=== PATIENT | female | born 1970 | race Caucasian/White ===

== ENCOUNTER 2016-08-28 15:52 | Observation (INO) | payer OTHER ==
[2016-08-28 15:56] VITALS: BMI 29.2
[2016-08-28] MEDS ORDERED: OXYCODONE/APAP 5/325MG COMBO TABLET PO ONE (17:50)
[2016-08-28] MEDS ORDERED: SODIUM CHLORIDE 1,000 ML IV STA ×2 (17:50→19:56)
[2016-08-28] MEDS ORDERED: OXYCODONE/APAP 5/325MG COMBO TABLET ONE (18:14)
--- NOTE | 2016-08-28 18:22 | PDOC ---
History of Present Illness - General Chief Complaint: Pain Stated Complaint: ABDOMINAL PAIN Time Seen by Provider: 08/28/16 17:01 History Source: Patient Exam Limitations: No Limitations - History of Present Illness Travel History: No Initial Comments: 08/28/16 17:19 46-year-old female presents to the ED for complaints of right lower quadrant right suprapubic pain that she describes sharp and intermittent worsened with movement. Patient denies fever, chills, urinary difficulty, irregular menses, diarrhea, constipation, headache, change in diet, abdominal distention, rash, or recent travel. She denies recent change in diet or recent sick contacts. Patient also denies history of ovarian cysts, fibroids, or GI disorders. Timing/Duration: reports: getting worse, intermittent Quality: reports: moderate, sharpness Abdominal Pain Onset Location: reports: suprapubic Pain Radiation: reports: RLQ Activities at Onset: reports: none Aggravating Factors: improves with: Movement Alleviating Factors: improves with: None Past History - Past Medical History Allergies/Adverse Reactions: Allergies Allergy/AdvReac Type Severity Reaction Status Date / Time No Known Allergies Allergy Verified 08/28/16 15:56 Home Medications: Ambulatory Orders Levothyroxine Sodium [Synthroid] 0 mg PO DAILY 08/28/16 Levothyroxine [Synthroid -] 50 mcg PO DAILY@0700 #0 tablet 08/30/16 Thyroid Disease: Yes - Surgical History Abdominal Surgery: Yes (gastric bypass) - Psycho/Social/Smoking Cessation Hx Suicidal Ideation: No Smoking History: Current every day smoker Information on smoking cessation initiated: No Hx Alcohol Use: Yes (occasional) Drug/Substance Use Hx: No Substance Use Type: None Patient Lives Alone: No Lives with/in: spouse/SO Review of Systems - Review of Systems Able to Perform ROS?: Yes Constitutional: No: Symptoms Reported HEENTM: No: Symptoms Reported Respiratory: No: Symptoms reported Cardiac (ROS): No: Symptoms Reported ABD/GI: Yes: Abdominal cramping : No: Symptoms Reported Musculoskeletal: No: Symptoms Reported Integumentary: No: Symptoms Reported 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: No: Symptoms reported *Physical Exam - Vital Signs Last Vital Signs Temp Pulse Resp BP Pulse Ox 97.6 F 79 19 155/97 100 08/28/16 15:54 08/28/16 15:54 08/28/16 15:54 08/28/16 15:54 08/28/16 15:54 - Physical Exam General Appearance: Yes: Nourished, Appropriately Dressed. No: Apparent Distress HEENT: positive: Pharynx Normal. negative: Pale Conjunctivae Neck: positive: Normal Thyroid, Supple Respiratory/Chest: positive: Lungs Clear, Normal Breath Sounds. negative: Respiratory Distress, Accessory Muscle Use Cardiovascular: positive: Regular Rhythm, Regular Rate. negative: Murmur Gastrointestinal/Abdominal: positive: Normal Bowel Sounds, Soft, Tenderness ( right suprapubic. negative McBURNEy, NEGATIVE PSOAS). negative: Distended, Mass Musculoskeletal: negative: CVA Tenderness Extremity: negative: Pedal Edema Integumentary: positive: Normal Color, Warm, Moist Neurologic: positive: Motor Strength 5/5 (ambulatory) ED Treatment Course - LABORATORY CBC & Chemistry Diagram: 08/28/16 18:00 08/28/16 18:00 - RADIOLOGY Radiology Studies Ordered: Category Date Time Status PELVIC / BLADDER US [US] Stat Ultrasound 08/28/16 17:50 Ordered TRANSVAGINAL ULTRASOUND US [US] Stat Ultrasound 08/28/16 17:50 Ordered - Medications Given in the ED: ED Medications Discontinued Medications Generic Name Dose Route Start Last Admin Trade Name Freq PRN Reason Stop Dose Admin Oxycodone/Acetaminophen 1 combo 08/28/16 17:50 08/28/16 18:19 Percocet 5/325 - PO 08/28/16 17:51 1 combo ONCE ONE Administration Medical Decision Making - Medical Decision Making 08/28/16 18:22 Patient here for evaluation of right lower quadrant pain and was sent over from urgent care clinic to rule out appendicitis. Patient exam had no clinical indication for appendicitis. Patient with right suprapubic pain with no vaginal discharge. Patient ordered for labs including lipase, urinalysis urine analgesics, and ultrasound 08/28/16 19:55 Patient states feeling better after receiving Percocet. Patient with elevated lactic acid. Will order another bag of IV fluids and second lactic acid. patient awaiting u/s. 08/28/16 20:08 Laboratory Tests 08/28/16 08/28/16 08/28/16 18:00 18:00 18:00 WBC 5.0 Hgb 10.4 L Hct 32.4 Plt Count 369 Neutrophils % 52.1 Random Glucose 110 H Lactic Acid Calcium 8.1 L AST 55 H ALT 39 Albumin 3.2 L Lipase Urine Nitrite Negative Ur Leukocyte Esterase Negative 08/28/16 08/28/16 18:00 18:00 WBC Hgb Hct Plt Count Neutrophils % Random Glucose Lactic Acid 2.9 H* Calcium AST ALT Albumin Lipase 163 Urine Nitrite Ur Leukocyte Esterase *DC/Admit/Observation/Transfer Diagnosis at time of Disposition: Right lower quadrant abdominal pain - Discharge Dispostion Disposition: HOME Condition at time of disposition: Improved - Prescriptions
[2016-08-28 18:31] LABS: BASOPHIL 1.2 % (0-2.0); EOSINOPHIL 1.8 % (0-4.5); MEAN CELL VOLUME 90.6 fl (80-96); MEAN PLT VOLUME 7.1 fl (7.5-11.1); NEUTROPHILS 52.1 % (42.8-82.8); PLATELET COUNT 369 K/MM3 (134-434); RDW 21.5 % (11.6-15.6)
[2016-08-28 18:34] LABS: URINE APPEARANCE CLEAR; URINE BILIRUBIN NEGATIVE (NEGATIVE); URINE BLOOD NEGATIVE (NEGATIVE); URINE COLOR STRAW; URINE GLUCOSE (UA) NEGATIVE (NEGATIVE); URINE KETONE NEGATIVE (NEGATIVE); URINE LEUK ESTERASE NEGATIVE (NEGATIVE); URINE NITRITE NEGATIVE (NEGATIVE); URINE PROTEIN NEGATIVE (NEGATIVE); URINE UROBILINOGEN NEGATIVE E.U./dl (0.2-1.0)
--- NOTE | 2016-08-28 18:50 | PDOC ---
*Physical Exam - Vital Signs Last Vital Signs Temp Pulse Resp BP Pulse Ox 97.6 F 79 19 155/97 100 08/28/16 15:54 08/28/16 15:54 08/28/16 15:54 08/28/16 15:54 08/28/16 15:54 - Physical Exam General Appearance: Yes: Nourished, Appropriately Dressed Neck: positive: Trachea midline Respiratory/Chest: positive: Lungs Clear, Normal Breath Sounds Cardiovascular: positive: Regular Rhythm, Regular Rate, S1, S2 Gastrointestinal/Abdominal: positive: Normal Bowel Sounds, Tender (rlq ttp, ), Other (RLQ ttp, no rebound no guarding) Musculoskeletal: positive: Normal Inspection Integumentary: positive: Normal Color, Dry, Warm ED Treatment Course - LABORATORY CBC & Chemistry Diagram: 08/28/16 18:00 08/28/16 18:00 - ADDITIONAL ORDERS Additional order review: Laboratory Results 08/28/16 18:00 Urine Color Straw Urine Appearance Clear Urine pH 5.0 Urine Protein Negative Urine Glucose (UA) Negative Urine Ketones Negative Urine Blood Negative Urine Nitrite Negative Urine Bilirubin Negative Urine Urobilinogen Negative Ur Leukocyte Esterase Negative 08/28/16 18:00 RBC 3.58 L MCV 90.6 MCHC 32.0 RDW 21.5 H MPV 7.1 L Neutrophils % 52.1 Lymphocytes % 36.9 Monocytes % 8.0 Eosinophils % 1.8 Basophils % 1.2 - Medications Given in the ED: ED Medications Discontinued Medications Generic Name Dose Route Start Last Admin Trade Name Garrick PRN Reason Stop Dose Admin Oxycodone/Acetaminophen 1 combo 08/28/16 17:50 08/28/16 18:19 Percocet 5/325 - PO 08/28/16 17:51 1 combo ONCE ONE Administration
[2016-08-28 18:59] LABS: ALBUMIN 3.2 g/dl (3.4-5.0); ALK PHOS 87 U/L (45-117); ANION GAP 12 (8-16); BILIRUBIN,TOTAL 0.6 mg/dL (0.2-1.0); CALCIUM 8.1 mg/dL (8.5-10.1); CO2 25 mmol/L (21-32); CREATININE 0.7 mg/dL (0.55-1.02); GLUCOSE,RANDOM 110 mg/dL (74-106); SGOT/AST 55 U/L (15-37); SGPT/ALT 39 U/L (12-78); TOT PROT 6.9 g/dl (6.4-8.2)
[2016-08-28 19:43] LABS: ANISOCYTOSIS 2+; PLATELET ESTIMATE ADEQUATE (NORMAL); POLYCHROMASIA 1+
--- NOTE | 2016-08-28 20:52 | PDOC ---
*Physical Exam - Vital Signs Last Vital Signs Temp Pulse Resp BP Pulse Ox 97.6 F 79 19 155/97 100 08/28/16 15:54 08/28/16 15:54 08/28/16 15:54 08/28/16 15:54 08/28/16 15:54 - Physical Exam Comments: 08/28/16 20:52 Sign-out received from outgoing ER provider Go. Pt interviewed and examined. Ancillary studies reviewed. Awaiting TV and pelvic US for r/o torsion, appendicitis. 08/29/16 01:33 Ultrasound results negative for torsion. Appendix not visualized. -Abdomen and pelvis CT with IV contrast CT results: Lack of oral contrast is limiting this examination. The appendix is not grossly identified. No secondary signs of acute appendicitis are identified. A few scattered diverticula in the colon without evidence of acute diverticulitis. Lack of opacification/nondistention of the colon is limiting its evaluation. In particular evaluation of the cecum and proximal ascending colon where wall thickening cannot be excluded. Read by: Raji Osman MD Discussed case with attending MD Becerra, will treat empirically for colitis and admit for observation, patient requires repeat labs and serial abdominal exams. ED Treatment Course - LABORATORY CBC & Chemistry Diagram: 08/28/16 18:00 08/28/16 18:00 - ADDITIONAL ORDERS Additional order review: Laboratory Results 08/28/16 08/28/16 08/28/16 18:00 18:00 18:00 Sodium 143 Potassium 3.8 Chloride 106 Carbon Dioxide 25 Anion Gap 12 BUN 13 Creatinine 0.7 Creat Clearance w eGFR > 60 Random Glucose 110 H Lactic Acid 2.9 H* Calcium 8.1 L Total Bilirubin 0.6 AST 55 H ALT 39 Alkaline Phosphatase 87 Total Protein 6.9 Albumin 3.2 L Lipase 163 Urine Color Urine Appearance Urine pH Urine Protein Urine Glucose (UA) Urine Ketones Urine Blood Urine Nitrite Urine Bilirubin Urine Urobilinogen Ur Leukocyte Esterase 08/28/16 18:00 Sodium Potassium Chloride Carbon Dioxide Anion Gap BUN Creatinine Creat Clearance w eGFR Random Glucose Lactic Acid Calcium Total Bilirubin AST ALT Alkaline Phosphatase Total Protein Albumin Lipase Urine Color Straw Urine Appearance Clear Urine pH 5.0 Urine Protein Negative Urine Glucose (UA) Negative Urine Ketones Negative Urine Blood Negative Urine Nitrite Negative Urine Bilirubin Negative Urine Urobilinogen Negative Ur Leukocyte Esterase Negative 08/28/16 18:00 RBC 3.58 L MCV 90.6 MCHC 32.0 RDW 21.5 H MPV 7.1 L Neutrophils % 52.1 Lymphocytes % 36.9 Monocytes % 8.0 Eosinophils % 1.8 Basophils % 1.2 - RADIOLOGY Radiology Studies Ordered: Category Date Time Status ABDOMEN & PELVIS CT W/O CONTR [CT] Stat CT Scan 08/28/16 20:42 Ordered - Medications Given in the ED: ED Medications Discontinued Medications Generic Name Dose Route Start Last Admin Trade Name Freq PRN Reason Stop Dose Admin Sodium Chloride 1,000 mls @ 1,000 mls/hr 08/28/16 17:50 08/28/16 18:19 Normal Saline - IV 08/28/16 18:49 1,000 mls/hr ASDIR STA Administration Oxycodone/Acetaminophen 1 combo 08/28/16 17:50 08/28/16 18:19 Percocet 5/325 - PO 08/28/16 17:51 1 combo ONCE ONE Administration *DC/Admit/Observation/Transfer Diagnosis at time of Disposition: Right lower quadrant abdominal pain - Discharge Dispostion Admit: Yes
[2016-08-29] MEDS ORDERED: PIPERACILLIN/TAZOB 3.375 GM/50 ML PRE-DOCKED IV ONE (01:29)
[2016-08-29] MEDS ORDERED: PIPERACILLIN/TAZOB 3.375 GM 50 ML IVPB ONE (01:57)
[2016-08-29] MEDS ORDERED: OXYCODONE/APAP 5/325MG COMBO TABLET PO PRN (02:49)
[2016-08-29] MEDS ORDERED: oxyCODONE HCL 5 MG TABLET PO PRN (02:55)
--- NOTE | 2016-08-29 02:57 | HP ---
CHIEF COMPLAINT:Abdominal pain PCP:Doctor on [facility] does not know name HISTORY OF PRESENT ILLNESS: 46F with history of hypothyroidism presents to the ED from urgent care with a 2 day history of abdominal pain. She went to urgent care and they were concerned for appendicitis so sent to ED. She states pain is dull and achy and was progressive in onset. She denies relation to food intake. pain worsened by movement of RLQ abdominal muscles. Pain has not radiated nor travelled. She denies nausea vomiting fevers chills chest pain shortness of breath diarrhea or constipation. Denies vaginal bleeding or vaginal discharge. Her PO intake has been unchanged. Patient was noted to have a lactic acid of 2.9 in the ED which came down to 2.3 after fluids. She had a CT scan which did not visualize the appendix but did not show any evidence of acute appendicitis. No oral contrast given and colitis could not be entirely ruled out. Asked to admit patient for serial abdominal exams and observation. Patient just got over her menstrual period 2 days ago. as her menstrual period was resolving the pain was starting. ER course was notable for: (1)Labs CT scan (2)ABx Ultrasound (3)IVF Recent Travel:Denies PAST MEDICAL HISTORY:Hypothyroidism PAST SURGICAL HISTORY:Gastric bypass and 3 C sections Social History: Smoking:Current smoker Alcohol:Social Drugs: Denies Family History: Allergies No Known Allergies Allergy (Verified 08/28/16 15:56) HOME MEDICATIONS: Home Medications Medication Instructions Recorded Levothyroxine Sodium [Synthroid] 0 mg PO DAILY 08/28/16 REVIEW OF SYSTEMS CONSTITUTIONAL: Absent: fever, chills, diaphoresis, generalized weakness, malaise, loss of appetite, weight change HEENT: Absent: rhinorrhea, nasal congestion, throat pain, throat swelling, difficulty swallowing, mouth swelling, ear pain, eye pain, visual changes CARDIOVASCULAR: Absent: chest pain, syncope, palpitations, irregular heart rate, lightheadedness , peripheral edema RESPIRATORY: Absent: cough, shortness of breath, dyspnea with exertion, orthopnea, wheezing, stridor, hemoptysis GASTROINTESTINAL: Absent: abdominal distension, nausea, vomiting, diarrhea, constipation, melena , hematochezia Present: abdominal pain Absent: dysuria, frequency, urgency, hesitancy, hematuria, flank pain, genital pain MUSCULOSKELETAL: Absent: myalgia, arthralgia, joint swelling, back pain, neck pain SKIN: Absent: rash, itching, pallor HEMATOLOGIC/IMMUNOLOGIC: Absent: easy bleeding, easy bruising, lymphadenopathy, frequent infections ENDOCRINE: Absent: unexplained weight gain, unexplained weight loss, heat intolerance, cold intolerance NEUROLOGIC: Absent: headache, focal weakness or paresthesias, dizziness, unsteady gait, seizure, mental status changes, bladder or bowel incontinence PSYCHIATRIC: Absent: anxiety, depression, suicidal or homicidal ideation, hallucinations. PHYSICAL EXAMINATION Vital Signs - 24 hr 08/28/16 15:54 Temperature 97.6 F Pulse Rate 79 Respiratory 19 Rate Blood Pressure 155/97 O2 Sat by Pulse 100 Oximetry (%) GENERAL: Awake, alert, and fully oriented, in no acute distress. HEAD: Normal with no signs of trauma. EYES: Pupils equal, round and reactive to light, extraocular movements intact, sclera anicteric EARS, NOSE, THROAT:Moist mucous membranes. NECK: Normal range of motion, supple LUNGS: Breath sounds equal, clear to auscultation bilaterally. No wheezes, and no crackles. No accessory muscle use. HEART: Regular rate and rhythm, normal S1 and S2 without murmur, rub or gallop. ABDOMEN: Soft, mildly tender to palpation over the RLQ not distended, normoactive bowel sounds, no guarding, no rebound, no masses. No hepatomegaly or splenomegaly. MUSCULOSKELETAL: Normal range of motion at all joints. No bony deformities or tenderness. No CVA tenderness. UPPER EXTREMITIES: warm, well-perfused. No peripheral edema. LOWER EXTREMITIES: warm, well-perfused. No peripheral edema. NEUROLOGICAL: Cranial nerves II-XII grossly intact. Normal speech. Laboratory Results - last 24 hr 08/28/16 08/28/16 08/28/16 18:00 18:00 18:00 WBC 5.0 RBC 3.58 L Hgb 10.4 L Hct 32.4 MCV 90.6 MCH 29.0 MCHC 32.0 RDW 21.5 H Plt Count 369 MPV 7.1 L Neutrophils % 52.1 Lymphocytes % 36.9 Monocytes % 8.0 Eosinophils % 1.8 Basophils % 1.2 Platelet Estimate Adequate Polychromasia 1+ Anisocytosis 2+ Macrocytosis 1+ Morphology Comment Slide scanned Sodium 143 Potassium 3.8 Chloride 106 Carbon Dioxide 25 Anion Gap 12 BUN 13 Creatinine 0.7 Creat Clearance w eGFR > 60 Random Glucose 110 H Lactic Acid Calcium 8.1 L Total Bilirubin 0.6 AST 55 H ALT 39 Alkaline Phosphatase 87 C-Reactive Protein Total Protein 6.9 Albumin 3.2 L Lipase Serum , Qual Urine Color Straw Urine Appearance Clear Urine pH 5.0 Ur Specific [place] 1.015 Urine Protein Negative Urine Glucose (UA) Negative Urine Ketones Negative Urine Blood Negative Urine Nitrite Negative Urine Bilirubin Negative Urine Urobilinogen Negative Ur Leukocyte Esterase Negative 08/28/16 08/28/16 08/28/16 18:00 18:00 18:00 WBC RBC Hgb Hct MCV MCH MCHC RDW Plt Count MPV Neutrophils % Lymphocytes % Monocytes % Eosinophils % Basophils % Platelet Estimate Polychromasia Anisocytosis Macrocytosis Morphology Comment Sodium Potassium Chloride Carbon Dioxide Anion Gap BUN Creatinine Creat Clearance w eGFR Random Glucose Lactic Acid 2.9 H* Calcium Total Bilirubin AST ALT Alkaline Phosphatase C-Reactive Protein Total Protein Albumin Lipase 163 Serum , Qual Negative Urine Color Urine Appearance Urine pH Ur Specific [place] Urine Protein Urine Glucose (UA) Urine Ketones Urine Blood Urine Nitrite Urine Bilirubin Urine Urobilinogen Ur Leukocyte Esterase 08/29/16 08/29/16 00:05 00:05 WBC RBC Hgb Hct MCV MCH MCHC RDW Plt Count MPV Neutrophils % Lymphocytes % Monocytes % Eosinophils % Basophils % Platelet Estimate Polychromasia Anisocytosis Macrocytosis Morphology Comment Sodium Potassium Chloride Carbon Dioxide Anion Gap BUN Creatinine Creat Clearance w eGFR Random Glucose Lactic Acid 2.3 H* Calcium Total Bilirubin AST ALT Alkaline Phosphatase C-Reactive Protein < 0.3 Total Protein Albumin Lipase Serum , Qual Urine Color Urine Appearance Urine pH Ur Specific [place] Urine Protein Urine Glucose (UA) Urine Ketones Urine Blood Urine Nitrite Urine Bilirubin Urine Urobilinogen Ur Leukocyte Esterase Ultrasound results negative for torsion. Appendix not visualized. -Abdomen and pelvis CT with IV contrast CT results: Lack of oral contrast is limiting this examination. The appendix is not grossly identified. No secondary signs of acute appendicitis are identified. A few scattered diverticula in the colon without evidence of acute diverticulitis. Lack of opacification/nondistention of the colon is limiting its evaluation. In particular evaluation of the cecum and proximal ascending colon where wall thickening cannot be excluded. Read by: Raji Osman MD ASSESSMENT/PLAN: 46F with 2 day history of abdominal placed on observation. Abdominal pain:highly unlikely there is an acute pathology given current CT scan results. Although colon and appendix not completely visualized history of presenting illness and secondary signs on imaging go against these diagnoses. possible patient is having symptomatic fibroids. place on observation NPO IVF Repeat CT scan with oral contrast to assess bowel for colitis No Need for antibiotics at this time no elevated WBC count no fevers or chills nor signs or symptoms of SIRS or systemic infection. no need for repeat labs Hypothyroisdism: patient thinks she takes 50mcg qam she will double check dose in AM by calling her continue home dose FEN: NS @ 125ml/hr no electrolyte issues npo for now PPx: SCDs/ambulate no GI PPx indicated at this time no PT consult needed at this time Case discussed with Dr. Martin Likely D/C home today in AM. Visit type - Emergency Visit Emergency Visit: Yes Care time: The patient presented to the Emergency Department on the above date and was hospitalized for further evaluation of their emergent condition. - New Patient This patient is new to me today: Yes Date on this admission: 08/29/16 - Critical Care Critical Care patient: No
[2016-08-29] MEDS ORDERED: SODIUM CHLORIDE 1,000 ML IV SCH (03:00)
--- NOTE | 2016-08-29 05:51 | PN ---
Teaching Attending Note Name of Resident: Ryan Reynolds ATTENDING PHYSICIAN STATEMENT I saw and evaluated the patient. I reviewed the resident's note and discussed the case with the resident. I agree with the resident's findings and plan as documented. SUBJECTIVE: 46 year old female that presents to the ED c/o 2 day history of RLQ abdominal pain 7/10 in intensity, dull, constant, non radiating , exacerbated by movement and relieved by oral percocet No prior episodes of pain like this No nausea vomiting diarrhea or fevers PMH Hypothyroidism PsxHx Gastric Bypass C section x 3 SOcial Hx Smoking:Current smoker Alcohol:Social Drugs: Denies Family Hx no history of premature CAD Vital Signs Temperature 98.2 F 08/29/16 04:12 Pulse Rate 70 08/29/16 04:12 Respiratory Rate 16 08/29/16 04:12 Blood Pressure 159/91 08/29/16 04:12 O2 Sat by Pulse Oximetry (%) 100 08/29/16 03:45 GENERAL: Awake, alert, and fully oriented, in no acute distress. HEAD: Normal with no signs of trauma. EYES: Pupils equal, round and reactive to light, extraocular movements intact, sclera anicteric EARS, NOSE, THROAT:Moist mucous membranes. NECK: Normal range of motion, supple LUNGS: Breath sounds equal, clear to auscultation bilaterally. No wheezes, and no crackles. No accessory muscle use. HEART: Regular rate and rhythm, normal S1 and S2 without murmur, rub or gallop. ABDOMEN: Soft, mildly tender to palpation over the RLQ not distended, normoactive bowel sounds, no guarding, no rebound, no masses. No hepatomegaly or splenomegaly. MUSCULOSKELETAL: Normal range of motion at all joints. No bony deformities or tenderness. No CVA tenderness. UPPER EXTREMITIES: warm, well-perfused. No peripheral edema. LOWER EXTREMITIES: warm, well-perfused. No peripheral edema. NEUROLOGICAL: Cranial nerves II-XII grossly intact. Normal speech. CBC, BMP 08/28/16 18:00 08/28/16 18:00 CT results: Lack of oral contrast is limiting this examination. The appendix is not grossly identified. No secondary signs of acute appendicitis are identified. A few scattered diverticula in the colon without evidence of acute diverticulitis. Lack of opacification/nondistention of the colon is limiting its evaluation. In particular evaluation of the cecum and proximal ascending colon where wall thickening cannot be excluded. Read by: Raji Osman MD ASSESSMENT AND PLAN: 1. Abdominal pain - r/o acute apppendicitis. Appendix was not visualized on CT scan - repeat CT with PO contrast - pain control - NPO - IVF
[2016-08-29] MEDS: ACETAMINOPHEN 325 MG TABLET (FP) PO PRN ×2 (05:58→23:11)
[2016-08-29] MEDS: LEVOTHYROXINE NA 50 MCG TABLET (FP) PO SCH (05:59)
--- NOTE | 2016-08-29 11:02 | HOSP ---
Subjective - Review of Symptoms Events since last encounter: Patient denies having any pain at this time. Temperature 98.2 F 08/29/16 04:12 Pulse Rate 70 08/29/16 04:12 Respiratory Rate 16 08/29/16 04:12 Blood Pressure 159/91 08/29/16 04:12 O2 Sat by Pulse Oximetry (%) 100 08/29/16 03:45 GENERAL: Awake, alert, and fully oriented, in no acute distress. HEAD: Normal with no signs of trauma. EYES: Pupils equal, round and reactive to light, extraocular movements intact, sclera anicteric EARS, NOSE, THROAT:Moist mucous membranes. NECK: Normal range of motion, supple LUNGS: Breath sounds equal, clear to auscultation bilaterally. No wheezes, and no crackles. No accessory muscle use. HEART: Regular rate and rhythm, normal S1 and S2 without murmur, rub or gallop. ABDOMEN: Soft, mildly tender to palpation over the RLQ not distended, normoactive bowel sounds, no guarding, no rebound, no masses. No hepatomegaly or splenomegaly appreeciated MUSCULOSKELETAL: Normal range of motion at all joints. No bony deformities or tenderness. No CVA tenderness. EXTREMITIES: warm, well-perfused. No peripheral edema. NEUROLOGICAL: Cranial nerves II-XII grossly intact. Normal speech. CBCD WBC 5.0 K/mm3 (4.0-10.0) 08/28/16 18:00 RBC 3.58 M/mm3 (3.60-5.2) L 08/28/16 18:00 Hgb 10.4 GM/dL (10.7-15.3) L 08/28/16 18:00 Hct 32.4 % (32.4-45.2) 08/28/16 18:00 MCV 90.6 fl (80-96) 08/28/16 18:00 MCHC 32.0 g/dl (32.0-36.0) 08/28/16 18:00 RDW 21.5 % (11.6-15.6) H 08/28/16 18:00 Plt Count 369 K/MM3 (134-434) 08/28/16 18:00 MPV 7.1 fl (7.5-11.1) L 08/28/16 18:00 CMP Sodium 143 mmol/L (136-145) 08/28/16 18:00 Potassium 3.8 mmol/L (3.5-5.1) 08/28/16 18:00 Chloride 106 mmol/L (98-107) 08/28/16 18:00 Carbon Dioxide 25 mmol/L (21-32) 08/28/16 18:00 Anion Gap 12 (8-16) 08/28/16 18:00 BUN 13 mg/dL (7-18) 08/28/16 18:00 Creatinine 0.7 mg/dL (0.55-1.02) 08/28/16 18:00 Creat Clearance w eGFR > 60 (>60) 08/28/16 18:00 Random Glucose 110 mg/dL (74-106) H 08/28/16 18:00 Calcium 8.1 mg/dL (8.5-10.1) L 08/28/16 18:00 Total Bilirubin 0.6 mg/dL (0.2-1.0) 08/28/16 18:00 AST 55 U/L (15-37) H 08/28/16 18:00 ALT 39 U/L (12-78) 08/28/16 18:00 Alkaline Phosphatase 87 U/L (45-117) 08/28/16 18:00 Total Protein 6.9 g/dl (6.4-8.2) 08/28/16 18:00 Albumin 3.2 g/dl (3.4-5.0) L 08/28/16 18:00 Current Medications Generic Name Dose Route Start Last Admin Trade Name Freq PRN Reason Stop Dose Admin Acetaminophen 325 mg 08/29/16 02:55 08/29/16 05:58 Tylenol - PO 325 mg Q6H PRN Administration PAIN Sodium Chloride 1,000 mls @ 125 mls/hr 08/29/16 03:00 08/29/16 04:12 Normal Saline - IV 125 mls/hr ASDIR GEETHA Administration Levothyroxine Sodium 50 mcg 08/29/16 07:00 08/29/16 05:59 Synthroid - PO 50 mcg DAILY@0700 GEETHA Administration Oxycodone HCl 5 mg 08/29/16 02:55 Roxicodone - PO Q6H PRN PAIN Home Medications Medication Instructions Recorded Levothyroxine Sodium [Synthroid] 0 mg PO DAILY 08/28/16 Ultrasound results negative for torsion. Appendix not visualized. Repeat CT of abdomen and Pelvis: Acute vs subacute appedicitis, partiatlly treated appendicitis vs cecal inflammation. Previous hx of Gastric bypass ASSESSMENT/PLAN: Patient is a 46F with 2 day history of RLQ pain . # Acute/Subacute appendicitis can't be ruled out, surgical consult dr. cartagena requested #Hypothyroisdism: patient on Levoxyl 50mcg continue # Hx of Gastric bypass DVT px: SCDs/ambulate Physical Examination Vital Signs: Vital Signs Temperature 98.2 F 08/29/16 04:12 Pulse Rate 70 08/29/16 04:12 Respiratory Rate 16 08/29/16 04:12 Blood Pressure 159/91 08/29/16 04:12 O2 Sat by Pulse Oximetry (%) 100 08/29/16 03:45
[2016-08-30] MEDS: SODIUM CHLORIDE 1,000 ML IV SCH ×3 (00:30→12:30)
--- NOTE | 2016-08-30 02:05 | PN ---
Progress Note (short form) - Note Progress Note: Pt seen and examined ~6:30pm Sat. Imaging reviewed. Tolerated clears yest and regular diet today. Pain in R pelvic area, comes and goes, since morning. Pain worse with being up and walking around, better lying down or sitting. WBC 5. Had one dose Zosyn early am Sat only. CT x 2 - one showing appendix with oral contrast in proximal aspect with mild concentric wall thickening there only. Pt s/p gastric bypass 2013 ([facility]) and x3 (last 16yrs ago with tubal ligation). Clinical exam and history suspicious for possible incisional hernia at right edge of scar. Full consult to follow. Tiffany CAMEJO Problem List - Problems (1) Right lower quadrant abdominal pain Code(s): R10.31 - RIGHT LOWER QUADRANT PAIN
[2016-08-30] MEDS: ACETAMINOPHEN 325 MG TABLET (FP) PO PRN (05:15)
[2016-08-30] MEDS: LEVOTHYROXINE NA 50 MCG TABLET (FP) PO SCH (06:47)
--- NOTE | 2016-08-30 12:31 | CONSULT ---
Consult Consult Specialty:: General Surgery Referred by:: Dr. 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 She was eating normally and had no f/c, n/v. She had had diarrhea for a couple of days prior as well which continued. Wednesday, she still had the pain and sought care, but was sent from urgent care to ER here. In ER, wbc was 5 and she was afebrile. Initial CT with IV contrast only did not visualize her appendix or any RLQ inflammatory changes. She was kept and had repeat CT with PO contrast only, showing possible proximal wall thickening of appendix with contrast in most proximal portion but no periappendiceal changes. She tolerated clears initially and then regular diet prior to my seeing her yesterday evening. Voiding ok. No N/V, no anorexia. No fevers. Still with intermittent pain, but less with medication, more with being upright and walking, less with lying down and sitting; more with direct palpation/pressure over the area. Had never had this pain in this area before. Surgery consulted to evaluate for possibility of appendicitis. - History Source History Provided By: Patient Limitations to Obtaining History: No Limitations - Past Medical History ...: No Infectious Disease: No: STD's Musculoskeletal: Yes: Chronic low back pain Endocrine: Yes: Hypothyroidism - Past Surgical History Past Surgical History: Yes: Bariatric Surgery (lap gastric bypass 2012 [facility] [address]; lost 125#, gained ~20 back), (x3 with BTL at last 16 yrs ago), Tubal Ligation - Alcohol/Substance Use Hx Alcohol Use: Yes (occasional) History of Substance Use: reports: None - Smoking History Smoking history: Former smoker Have you smoked in the past 12 months: No Aproximately how many cigarettes per day: 2 If you are a former smoker, when did you quit?: 1996 Home Medications - Allergies Allergies/Adverse Reactions: Allergies Allergy/AdvReac Type Severity Reaction Status Date / Time No Known Allergies Allergy Verified 08/28/16 15:56 - Home Medications Home Medications: Ambulatory Orders Levothyroxine Sodium [Synthroid] 0 mg PO DAILY 08/28/16 Family Disease History - Family Disease History Family Disease History: Heart Disease: Father ( of heart attack in his 40s) , CA: Mother (COPD, of met skin CA), Respiratory: Mother Review of Systems - Review of Systems Constitutional: denies: Chills, Fever, Unintentional Wgt. Loss Eyes: denies: Blurred Vision, Double Vision HENT: denies: Nasal Congestion, Throat Pain Cardiovascular: denies: Chest Pain, Palpitations Respiratory: denies: Cough, SOB Gastrointestinal: reports: Abdominal Pain, Diarrhea (over last few days). denies: Constipation, Nausea, Vomiting Genitourinary: denies: Burning, Dysuria Musculoskeletal: reports: Back Pain. denies: Joint Pain Integumentary: denies: Change in Color, Rash 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: denies: Dizziness, Headache Endocrine: denies: Unexplained Weight Gain, Unexplained Weight Loss Physical Exam Vital Signs: Vital Signs Temperature 98.1 F 08/30/16 08:06 Pulse Rate 63 08/30/16 08:06 Respiratory Rate 16 08/30/16 08:06 Blood Pressure 149/88 08/30/16 08:06 O2 Sat by Pulse Oximetry (%) 98 08/30/16 10:00 Constitutional: Yes: Well Nourished, No Distress, Calm, Obese (not morbidly) Eyes: Yes: Conjunctiva Clear, EOM Intact HENT: Yes: Atraumatic, Normocephalic Cardiovascular: Yes: Regular Rate and Rhythm. No: Murmur Respiratory: Yes: Regular, CTA Bilaterally Gastrointestinal: Yes: Normal Bowel Sounds, Soft, Abdomen, Obese (loosely with pannus), Hernia (?? - bulge palpable with cough at right end of pelvic scar with tenderness and focal reproduction of pain), Tenderness (R pelvic area above inguinal ligament just under R edge of Pfannenstiel scar). No: Distention ...Rectal Exam: Yes: Deferred Renal/: No: CVA Tenderness - Left, CVA Tenderness - Right Extremities: No: Cool, Cyanosis Edema: No Peripheral Pulses WNL: Yes Integumentary: No: Bruising, Jaundice, Rash 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: Yes: Alert, Oriented Psychiatric: Yes: Alert, Oriented Labs: CBC,CMP WBC 5.0 K/mm3 (4.0-10.0) 08/28/16 18:00 RBC 3.58 M/mm3 (3.60-5.2) L 08/28/16 18:00 Hgb 10.4 GM/dL (10.7-15.3) L 08/28/16 18:00 Hct 32.4 % (32.4-45.2) 08/28/16 18:00 MCV 90.6 fl (80-96) 08/28/16 18:00 MCH 29.0 pg (25.7-33.7) 08/28/16 18:00 MCHC 32.0 g/dl (32.0-36.0) 08/28/16 18:00 RDW 21.5 % (11.6-15.6) H 08/28/16 18:00 Plt Count 369 K/MM3 (134-434) 08/28/16 18:00 MPV 7.1 fl (7.5-11.1) L 08/28/16 18:00 Neutrophils % 52.1 % (42.8-82.8) 08/28/16 18:00 Lymphocytes % 36.9 % (8-40) 08/28/16 18:00 Monocytes % 8.0 % (3.8-10.2) 08/28/16 18:00 Eosinophils % 1.8 % (0-4.5) 08/28/16 18:00 Basophils % 1.2 % (0-2.0) 08/28/16 18:00 Platelet Estimate Adequate (NORMAL) 08/28/16 18:00 Polychromasia 1+ 08/28/16 18:00 Anisocytosis 2+ 08/28/16 18:00 Macrocytosis 1+ 08/28/16 18:00 Morphology Comment Slide scanned 08/28/16 18:00 Sodium 143 mmol/L (136-145) 08/28/16 18:00 Potassium 3.8 mmol/L (3.5-5.1) 08/28/16 18:00 Chloride 106 mmol/L (98-107) 08/28/16 18:00 Carbon Dioxide 25 mmol/L (21-32) 08/28/16 18:00 Anion Gap 12 (8-16) 08/28/16 18:00 BUN 13 mg/dL (7-18) 08/28/16 18:00 Creatinine 0.7 mg/dL (0.55-1.02) 08/28/16 18:00 Creat Clearance w eGFR > 60 (>60) 08/28/16 18:00 Random Glucose 110 mg/dL (74-106) H 08/28/16 18:00 Lactic Acid 2.3 mmol/L (0.4-2.0) H* 08/29/16 00:05 Calcium 8.1 mg/dL (8.5-10.1) L 08/28/16 18:00 Total Bilirubin 0.6 mg/dL (0.2-1.0) 08/28/16 18:00 AST 55 U/L (15-37) H 08/28/16 18:00 ALT 39 U/L (12-78) 08/28/16 18:00 Alkaline Phosphatase 87 U/L (45-117) 08/28/16 18:00 C-Reactive Protein < 0.3 MG/DL (0.00-0.3) 08/29/16 00:05 Total Protein 6.9 g/dl (6.4-8.2) 08/28/16 18:00 Albumin 3.2 g/dl (3.4-5.0) L 08/28/16 18:00 Lipase 163 U/L (73-393) 08/28/16 18:00 Serum , Qual Negative 08/28/16 18:00 Imaging - Results Cat Scan: Report Reviewed, Image Reviewed (x2 - CT with IV contrast did not visualize appendix but very small possible defect in R pelvic fascia noted in area under Pfannenstiel scar with only fat beneath; CT with PO contrast shows appendix with contrast in proximal portion and possible concentric wall thickening in same area but no sig surrounding inflammatory changes; reviewed with radiologist this am - appendicitis unlikely, hernia possible) Problem List - Problems (1) Right lower quadrant abdominal pain Assessment/Plan: clinical picture not consistent with appendicitis, more likely incisional hernia at right edge of Pfannenstiel scar/incision see below Code(s): R10.31 - RIGHT LOWER QUADRANT PAIN (2) Incisional hernia, without obstruction or gangrene Assessment/Plan: no obstruction or incarceration likely only fat protruding intermittently causing symptoms no urgency to repair at this time Pt has bariatric surgeon and PMD - will follow up with them to discuss further workup and/or operative intervention Thank you for the opportunity to participate in the care of this patient. Code(s): K43.2 - INCISIONAL HERNIA WITHOUT OBSTRUCTION OR GANGRENE
--- NOTE | 2016-08-30 13:05 | DS ---
Physical Exam: SUBJECTIVE: Patient seen and examined at bed side this morning. No complaints. Denies chest pain, sob, cough, palpitation, abdominal pain, nausea or vomiting. Bowel/Bladder habit normal. Sleep/Appetite-Normal. OBJECTIVE: Vital Signs Period Temp Pulse Resp BP Sys/Aleman Pulse Ox Last 24 Hr 98 F-99.0 F 62-95 16-20 112-149/58-88 98 PHYSICAL EXAM GENERAL: The patient is awake, alert, and fully oriented, in no acute distress. HEAD: Normal with no signs of trauma. EYES: PERRL, extraocular movements intact, sclera anicteric, conjunctiva clear. ENT: Ears normal, nares patent, oropharynx clear without exudates, moist mucous membranes. NECK: Trachea midline, full range of motion, supple. LUNGS: Breath sounds equal, clear to auscultation bilaterally, no wheezes, no crackles, no accessory muscle use. HEART: Regular rate and rhythm, S1, S2 without murmur, rub or gallop. ABDOMEN: Soft, tenderness on the right lower quadrant; nondistended, normoactive bowel sounds, no guarding, no rebound, no hepatosplenomegaly, no masses. EXTREMITIES: 2+ pulses, warm, well-perfused, no edema. NEUROLOGICAL: Cranial nerves II through XII grossly intact. Normal speech, gait not observed. PSYCH: Normal mood, normal affect. SKIN: Warm, dry, normal turgor, no rashes or lesions noted. Laboratory Tests 08/28/16 08/28/16 08/28/16 18:00 18:00 18:00 WBC 5.0 RBC 3.58 L Hgb 10.4 L Hct 32.4 MCV 90.6 MCH 29.0 MCHC 32.0 RDW 21.5 H Plt Count 369 MPV 7.1 L Neutrophils % 52.1 Lymphocytes % 36.9 Monocytes % 8.0 Eosinophils % 1.8 Basophils % 1.2 Platelet Estimate Adequate Polychromasia 1+ Anisocytosis 2+ Macrocytosis 1+ Morphology Comment Slide scanned Sodium 143 Potassium 3.8 Chloride 106 Carbon Dioxide 25 Anion Gap 12 BUN 13 Creatinine 0.7 Creat Clearance w eGFR > 60 Random Glucose 110 H Lactic Acid Calcium 8.1 L Total Bilirubin 0.6 AST 55 H ALT 39 Alkaline Phosphatase 87 C-Reactive Protein Total Protein 6.9 Albumin 3.2 L Lipase Serum , Qual Urine Color Straw Urine Appearance Clear Urine pH 5.0 Ur Specific [place] 1.015 Urine Protein Negative Urine Glucose (UA) Negative Urine Ketones Negative Urine Blood Negative Urine Nitrite Negative Urine Bilirubin Negative Urine Urobilinogen Negative Ur Leukocyte Esterase Negative 08/28/16 08/28/16 08/28/16 18:00 18:00 18:00 WBC RBC Hgb Hct MCV MCH MCHC RDW Plt Count MPV Neutrophils % Lymphocytes % Monocytes % Eosinophils % Basophils % Platelet Estimate Polychromasia Anisocytosis Macrocytosis Morphology Comment Sodium Potassium Chloride Carbon Dioxide Anion Gap BUN Creatinine Creat Clearance w eGFR Random Glucose Lactic Acid 2.9 H* Calcium Total Bilirubin AST ALT Alkaline Phosphatase C-Reactive Protein Total Protein Albumin Lipase 163 Serum , Qual Negative Urine Color Urine Appearance Urine pH Ur Specific [place] Urine Protein Urine Glucose (UA) Urine Ketones Urine Blood Urine Nitrite Urine Bilirubin Urine Urobilinogen Ur Leukocyte Esterase 08/29/16 08/29/16 00:05 00:05 WBC RBC Hgb Hct MCV MCH MCHC RDW Plt Count MPV Neutrophils % Lymphocytes % Monocytes % Eosinophils % Basophils % Platelet Estimate Polychromasia Anisocytosis Macrocytosis Morphology Comment Sodium Potassium Chloride Carbon Dioxide Anion Gap BUN Creatinine Creat Clearance w eGFR Random Glucose Lactic Acid 2.3 H* Calcium Total Bilirubin AST ALT Alkaline Phosphatase C-Reactive Protein < 0.3 Total Protein Albumin Lipase Serum , Qual Urine Color Urine Appearance Urine pH Ur Specific [place] Urine Protein Urine Glucose (UA) Urine Ketones Urine Blood Urine Nitrite Urine Bilirubin Urine Urobilinogen Ur Leukocyte Esterase Pelvic ultrasound 08/28/16: Images of the right lower quadrant were obtained. The appendix was not identified. No free fluid or fluid collection is seen. Retroverted fibroid uterus, as described above. Normal thickness of the endometrial stripe. Prominent nabothian cyst in the cervix measuring 1.2 cm. Simple cyst/dominant follicle in the right ovary measuring 0.8 cm with normal vascular flow. Left ovary was not visualized. Abdominal/Pelvis CT 09/28/16: Abdomen and pelvis CT (without intravenous contrast ) Clinical information: evaluate for appendicitis, colitis Multiplanar imaging was performed. As requested intravenous contrast was not administered. Oral contrast was administered. In comparison to contrast-enhanced CT performed 7 hours earlier on 08/28/2026 note is made of mild concentric wall thickening involving the proximal most aspect of the appendix only (coronal images 33 - 35) . There is contrast opacification of the appendiceal lumen in the same region. Remainder the appendix appears unremarkable. No definite periappendiceal edema fluid is seen. There is no evidence of abscess, pneumoperitoneum, free intraperitoneal fluid or bowel obstruction. No gross CT evidence of acute colitis allowing for a partially collapsed colonic lumen. Mild to moderate colitis may not be demonstrable on CT. Allowing for a small amount of residual intravenous contrast material the liver, spleen, pancreas, gallbladder, adrenal glands and kidneys demonstrate no gross pathology. There is no aortic aneurysm. Status post bariatric gastric surgery. There is no obvious lymphadenopathy. No definite pelvic pathology is visualized. A small amount of contrast is seen within the urinary bladder lumen in association with contrast- enhanced CT performed on 08/28/2016. No gross small bowel pathology is noted. Impression: Mild nonspecific concentric wall thickening is seen at the level of the proximal appendix over a 1.2 cm in length. This appearance could not be appreciated on the prior exam of 08/28/2016 probably due to lack of intraluminal bowel contrast. This finding could be on the basis of acute or subacute appendicitis including partially treated appendicitis versus cecal inflammation. No definite cecal wall thickening can be appreciated on the current exam. Status post gastric bypass surgery. 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 Evaluated for abdominal pain. CT abdomen was done, report mentioned as above. Clinically, symptoms are not consistent with appendicitis. Incisional hernia - no incarceration or strangulation. Patient is hemodynamically stable and can be discharged. No acute events during hospitalization. Recommended to follow up with her GI doctor as outpatient for further evaluation. Plan of care explained to the patient. She verbalized understanding. Case seen and discussed with Dr. Beyer. Minutes to complete discharge: 45 Discharge Summary Reason For Visit: RIGHT LOWER QUADRANT ABDOMINAL PAIN Current Active Problems Right lower quadrant abdominal pain (Acute) Incisional hernia, without obstruction or gangrene (Chronic) Condition: Improved - Instructions Diet, Activity, Other Instructions: You were admitted for evaluation of abdominal pain. Most likely the abdominal pain is due to the incisional hernia -fat protruding intermittently causing symptoms. There is no strangulation. Please follow up with your GI doctor in a week and PCP in a week for further evaluation and management. Return to the Emergency Department if your symptoms get worse or if you develop any new symptoms. PCP: Jenifer Mo [phone] Yana Young [phone] Referrals: STAFF,NOT ON [Primary Care Provider] - 1 Week (PCP: Jenifer Mo [phone] Yana Young [phone]) Jenifer Zepeda MD [Staff Physician] - Disposition: HOME - Home Medications Comprehensive Discharge Medication List: Ambulatory Orders Levothyroxine Sodium [Synthroid] 0 mg PO DAILY 08/28/16
[2016-08-30 14:11] VITALS: BP 143/72; PULSE 78; TEMP 98.6
--- NOTE | 2016-08-30 20:45 | PN ---
Teaching Attending Note Name of Resident: Ethel Quijano ATTENDING PHYSICIAN STATEMENT I saw and evaluated the patient. I reviewed the resident's note and discussed the case with the resident. I agree with the resident's findings and plan as documented. SUBJECTIVE: Comfortable with no acute distress. OBJECTIVE: Vital Signs Temperature 98.6 F 08/30/16 14:10 Pulse Rate 78 08/30/16 14:10 Respiratory Rate 18 08/30/16 14:10 Blood Pressure 143/72 08/30/16 14:10 O2 Sat by Pulse Oximetry (%) 98 08/30/16 10:00 CBCD WBC 5.0 K/mm3 (4.0-10.0) 08/28/16 18:00 RBC 3.58 M/mm3 (3.60-5.2) L 08/28/16 18:00 Hgb 10.4 GM/dL (10.7-15.3) L 08/28/16 18:00 Hct 32.4 % (32.4-45.2) 08/28/16 18:00 MCV 90.6 fl (80-96) 08/28/16 18:00 MCHC 32.0 g/dl (32.0-36.0) 08/28/16 18:00 RDW 21.5 % (11.6-15.6) H 08/28/16 18:00 Plt Count 369 K/MM3 (134-434) 08/28/16 18:00 MPV 7.1 fl (7.5-11.1) L 08/28/16 18:00 CMP Sodium 143 mmol/L (136-145) 08/28/16 18:00 Potassium 3.8 mmol/L (3.5-5.1) 08/28/16 18:00 Chloride 106 mmol/L (98-107) 08/28/16 18:00 Carbon Dioxide 25 mmol/L (21-32) 08/28/16 18:00 Anion Gap 12 (8-16) 08/28/16 18:00 BUN 13 mg/dL (7-18) 08/28/16 18:00 Creatinine 0.7 mg/dL (0.55-1.02) 08/28/16 18:00 Creat Clearance w eGFR > 60 (>60) 08/28/16 18:00 Random Glucose 110 mg/dL (74-106) H 08/28/16 18:00 Calcium 8.1 mg/dL (8.5-10.1) L 08/28/16 18:00 Total Bilirubin 0.6 mg/dL (0.2-1.0) 08/28/16 18:00 AST 55 U/L (15-37) H 08/28/16 18:00 ALT 39 U/L (12-78) 08/28/16 18:00 Alkaline Phosphatase 87 U/L (45-117) 08/28/16 18:00 Total Protein 6.9 g/dl (6.4-8.2) 08/28/16 18:00 Albumin 3.2 g/dl (3.4-5.0) L 08/28/16 18:00 Home Medications Medication Instructions Recorded Levothyroxine Sodium [Synthroid] 0 mg PO DAILY 08/28/16 Levothyroxine [Synthroid -] 50 mcg PO DAILY@0700 #0 tablet 08/30/16 PE: POsitive for right lower quadrant palpable small hernia (chick peas size) , mild tenderness on palpation ASSESSMENT AND PLAN: Patient is a 46F with 2 day history of RLQ pain . # Right lower quadrant abdominal pain a sper surgeon not consistent with appendicitis, more likely incisional hernia at right edge of Pfannenstiel scar/ incision Cat Scan: Report Reviewed, with Radiologist as per surgeon : Image Reviewed (x2 - CT with IV contrast did not visualize appendix but very small possible defect in R pelvic fascia noted in area under Pfannenstiel scar with only fat beneath; CT with PO contrast shows appendix with contrast in proximal portion and possible concentric wall thickening in same area but no sig surrounding inflammatory changes; reviewed with radiologist this am - appendicitis unlikely , hernia possible) # Incisional hernia, without obstruction or gangrene; no obstruction or incarceration; likely only fat protruding intermittently causing symptoms no urgency to repair at this time; Patient will follow with her bariatric surgeon and PMD - will follow up with them to discuss further workup and/or operative intervention discharge time 45minutes Patient will follow with her surgeon
--- NOTE | 2016-08-31 13:54 | EKG ---
Test Reason : Blood Pressure : / mmHG Vent. Rate : 070 BPM Atrial Rate : 070 BPM P-R Int : 150 ms QRS Dur : 072 ms QT Int : 408 ms P-R-T Axes : 037 043 049 degrees QTc Int : 440 ms NORMAL SINUS RHYTHM NORMAL ECG NO PREVIOUS ECGS AVAILABLE Confirmed by DWIGHT MCARTHUR MD ([id number]) on 08/31/2016 1:54:02 PM Referred By: Confirmed By:DWIGHT MCARTHUR MD
== END 2016-08-30 14:31 | disposition home or self-care (01) ==
LOC: JER 15:52 → JERBED 08-29 02:47 → J6S 08-29 04:11
PROVIDERS: ADMIT Internal Medicine; ATTEND Internal Medicine
PROC: 3E0337Z Introduction of Electrolytic and Water Balance Substance into Peripheral Vein, Percutaneous Approach (ICD-10-PCS; principal; 2016-08-29)
DX: R10.31 Right lower quadrant pain (principal); E03.9 Hypothyroidism, unspecified; F17.210 Nicotine dependence, cigarettes, uncomplicated; Z98.84 Bariatric surgery status; K57.92 Diverticulitis of intestine, part unspecified, without perforation or abscess without bleeding; E66.01 Morbid (severe) obesity due to excess calories; Z68.33 Body mass index [BMI] 33.0-33.9, adult; K43.2 Incisional hernia without obstruction or gangrene
CPT/HCPCS: 36415; 74176-TC; 74177-TC; 76830-TC; 76856-TC; 80053; 81003; 83605; 83690; 84703; 85025; 86140; 87040; 93005; 93010; 99285-25; G0378

== ENCOUNTER 2017-04-22 08:59 | Emergency (ER) | payer OTHER ==
[2017-04-22 09:07] VITALS: BP 139/93; PULSE 118; TEMP 98.1; BMI 29.4
--- NOTE | 2017-04-22 09:59 | PDOC ---
History of Present Illness - General Chief Complaint: Injury Stated Complaint: LT TOE PAIN Time Seen by Provider: 04/22/17 09:13 History Source: Patient Exam Limitations: No Limitations - History of Present Illness Initial Comments: 04/22/17 09:55 CHIEF COMPLAINT: Injury to left fifth toe HISTORY OF PRESENT ILLNESS: Patient is a 47-year-old female, history of hypothyroidism on Synthroid presents for injury to left fifth toe. Reports hitting it against a wall last night bruising to base of left fifth toe. Occurred: reports: other Severity: Yes: moderate Lower Extremity Pain Location: left: 5th toe Method of Injury: Yes: direct blow Modifying Factors: improves with: cold therapy Lower Ext. Injury Location - Specific Injury Location Foot: left foot ecchymosis, left foot pain, left foot swelling Extremity Pain Location - Extremity Pain Location Extremity Pain Locations: left: 5th toe Past History - Past Medical History Allergies/Adverse Reactions: Allergies Allergy/AdvReac Type Severity Reaction Status Date / Time No Known Allergies Allergy Verified 04/22/17 09:04 Home Medications: Ambulatory Orders Levothyroxine Sodium [Synthroid] 0 mg PO DAILY 08/28/16 Levothyroxine [Synthroid -] 50 mcg PO DAILY@0700 #0 tablet 08/30/16 Oxycodone HCl/Acetaminophen [Percocet 5-325 mg Tablet] 1 - 2 tab PO Q4H #20 tablet MDD 10 04/22/17 COPD: No Thyroid Disease: Yes - Surgical History Abdominal Surgery: Yes (gastric bypass) - Immunization History Immunization Up to Date: Yes - Suicide/Smoking/Psychosocial Hx Smoking History: Never smoked Have you smoked in the past 12 months: No Number of Cigarettes Smoked Daily: 2 If you are a former smoker, when did you quit?: 1996 Hx Alcohol Use: No Drug/Substance Use Hx: No Substance Use Type: None Review of Systems - Review of Systems Constitutional: No: Symptoms Reported HEENTM: No: Symptoms Reported Respiratory: No: Symptoms reported Cardiac (ROS): No: Symptoms Reported ABD/GI: No: Symptoms Reported : No: Symptoms Reported Musculoskeletal: Yes: Joint Pain, Joint Swelling Integumentary: Yes: Bruising 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: No: Symptoms reported All Other Systems: Reviewed and Negative *Physical Exam - Vital Signs Last Vital Signs Temp Pulse Resp BP Pulse Ox 98.1 F 118 H 18 139/93 99 04/22/17 09:04 04/22/17 09:04 04/22/17 09:04 04/22/17 09:04 04/22/17 09:04 - Physical Exam General Appearance: Yes: Appropriately Dressed. No: Apparent Distress Respiratory/Chest: positive: Lungs Clear, Normal Breath Sounds Extremity: positive: Normal Capillary Refill, Swelling Integumentary: positive: Erythema, Swelling, Bruising (left fifth toe) Neurologic: positive: Alert, Normal Mood/Affect ED Treatment Course - RADIOLOGY Radiology Studies Ordered: Category Date Time Status FOOT-LEFT [RAD] Stat Radiology 04/22/17 09:13 Ordered Medical Decision Making - Medical Decision Making 04/22/17 09:59 A/P: Patient with injury to left fifth toe sent to x-ray to rule out acute fracture barron tape and surgical shoe placed on. 04/22/17 11:21 Left fifth toe fracture, barron tape and surgical shoe placed on. Patient to follow-up with orthopedics. Percocet for pain. Motrin flight pain. I discussed the physical exam findings, ancillary test results and final diagnoses with the patient. I answered all of the patient's questions. The patient was satisfied with the care received and felt comfortable with the discharge plan and treatment plan. The patient will call to arrange follow-up and will return to the Emergency Department with any new, persistent or worsening symptoms. *DC/Admit/Observation/Transfer Diagnosis at time of Disposition: Toe fracture, left Qualifiers: Encounter type: initial encounter Toe: lesser toe Fracture type: closed Phalanx : proximal Fracture alignment: nondisplaced Qualified Code(s): S92.515A - Nondisplaced fracture of proximal phalanx of left lesser toe(s), initial encounter for closed fracture - Discharge Dispostion Disposition: HOME Condition at time of disposition: Stable Admit: No - Prescriptions Prescriptions: Oxycodone HCl/Acetaminophen [Percocet 5-325 mg Tablet] 1 - 2 tab PO Q4H #20 tablet MDD 10 - Referrals Referrals: Jenifer Zepeda MD [Primary Care Provider] - Randall Caballero MD [Staff Physician] - - Patient Instructions Printed Discharge Instructions: DI for Toe Fracture Additional Instructions: 1. Please return to the emergency department with any redness, swelling, increased pain, or any other concerns. 2. Keep splint on. 3. Please follow up in the office of Dr. Caballero. 4. No weightbearing 5. Ice and elevate when at rest. 6. Motrin for light pain - Post Discharge Activity
== END 2017-04-22 10:30 | disposition home or self-care (01) ==
LOC: JERFT 08:59
DX: S92.515A Nondisplaced fracture of proximal phalanx of left lesser toe(s), initial encounter for closed fracture (principal); W22.01XA Walked into wall, initial encounter; Y93.89 Activity, other specified; Y92.038 Other place in apartment as the place of occurrence of the external cause; Y99.8 Other external cause status
CPT/HCPCS: 73630-TC-LT; 99281-25

== ENCOUNTER 2017-11-11 13:16 | Emergency (ER) | payer OTHER ==
[2017-11-11 13:26] VITALS: TEMP 98.7; BMI 27.4
--- NOTE | 2017-11-11 14:10 | PDOC ---
History of Present Illness - General Chief Complaint: Pain, Acute Stated Complaint: ABD PAIN Time Seen by Provider: 11/11/17 13:44 History Source: Patient Exam Limitations: No Limitations - History of Present Illness Initial Comments: 11/11/17 14:02 47 yo female pmh of gastric bypass (6 years ago) and hypothyroidism presents to the ED for 3 days of RLQ and LLQ abdominal pain. Patient states she has been unable to go work due to pain which is is constant, non radiating and sharp and made worse with food. Patient denies constipation/diarrhea or blood in stool, changes in urinary habits (no burning or increased frequency or blood in urine) F/C/N/V or history of STIs. Denies CP, SOB. Past History - Past Medical History Allergies/Adverse Reactions: Allergies Allergy/AdvReac Type Severity Reaction Status Date / Time No Known Allergies Allergy Verified 04/22/17 09:04 Home Medications: Ambulatory Orders Levothyroxine [Synthroid -] 50 mcg PO DAILY@0700 #0 tablet 08/30/16 COPD: No Thyroid Disease: Yes - Surgical History Abdominal Surgery: Yes (gastric bypass) - Immunization History Immunization Up to Date: Yes - Suicide/Smoking/Psychosocial Hx Smoking History: Former smoker Have you smoked in the past 12 months: No Number of Cigarettes Smoked Daily: 2 If you are a former smoker, when did you quit?: 1996 Information on smoking cessation initiated: No Hx Alcohol Use: No Drug/Substance Use Hx: No Substance Use Type: None Review of Systems - Review of Systems Constitutional: No: Chills, Fever, Weakness Respiratory: No: Shortness of Breath Cardiac (ROS): No: Chest Pain ABD/GI: Yes: Other (RLQ and LLQ abdominal pain). No: Blood Streaked Bowels, Constipated, Diarrhea, Nausea, Vomiting, Tarry Stools : No: Burning, Dysuria, Frequency, Flank Pain, Hematuria Musculoskeletal: No: Back Pain *Physical Exam - Vital Signs Last Vital Signs Temp Pulse Resp BP Pulse Ox 98.7 F 96 H 22 142/96 98 11/11/17 13:23 11/11/17 13:23 11/11/17 13:23 11/11/17 13:23 11/11/17 13:23 - Physical Exam General Appearance: Yes: Nourished, Appropriately Dressed, Apparent Distress ( position of comfort is lateral ) HEENT: positive: EOMI Neck: positive: Trachea midline Respiratory/Chest: positive: Lungs Clear, Normal Breath Sounds. negative: Crackles, Wheezing Cardiovascular: positive: Regular Rhythm, Regular Rate, S1, S2. negative: Edema , JVD, Murmur Vascular Pulses: Dorsalis-Pedis (R): 3+, Doralis-Pedis (L): 3+ Female Pelvic Exam: positive: normal external exam, cervical os closed, adnexal tenderness (right sided). negative: discharge, lesions, Bartholin mass Gastrointestinal/Abdominal: positive: Normal Bowel Sounds, Soft, Tenderness ( RLQ and LLQ abdominal pain/tenderness, worse on the right). negative: Pulsatile Mass, Protuberent, Distended, Guarding, Rebound Musculoskeletal: positive: Normal Inspection Integumentary: positive: Normal Color, Dry, Warm Neurologic: positive: Fully Oriented, Alert, Normal Mood/Affect ED Treatment Course - LABORATORY CBC & Chemistry Diagram: 11/11/17 14:46 11/11/17 14:46 Medical Decision Making - Medical Decision Making 11/11/17 20:12 47 yo female pmh of gastric bypass presents to ED with 3 days of lower quadrant abdominal pain. 4mg of morphine given which relieved pain. Exam: tenderness to RLQ and suprapubic region but negative rovsings, no guarding or rebound. DDX: diverticulitis, appendicitis, kidney stone, pancreatitis, ovarian cyst/ torsion, IBS abdomen pelvis CT negative for diverticulitis, appendix not visualized. Positive for fatty liver. no mention of ovaries or uterus. Trans Vag ultrasound ordered. Patients pain has returned. 650 Tylenol PO given Labs show elevated ast and alt *DC/Admit/Observation/Transfer Diagnosis at time of Disposition: Abdominal pain Qualifiers: Abdominal location: right lower quadrant Qualified Code(s): R10.31 - Right lower quadrant pain - Discharge Dispostion Disposition: HOME Condition at time of disposition: Improved Decision to Admit order: No - Referrals Referrals: Jenifer Zepeda MD [Primary Care Provider] - ashley, Unknown [Other] - Patient Instructions Printed Discharge Instructions: DI for Abdominal Pain-Adult Additional Instructions: Please have a follow up appointment set with your Primary Care Doctor within the next 2 days and have a discussion about the Fatty liver found on CT along with elevated liver enzymes. Please return to the Emergency Room for new or worsening symptoms including but not limited to: severe abdominal pain not responding to medications, blood in the stool, high fevers or lethargy. Please take Tylenol and Motrin over the counter as prescribed on the package for pain relief. Thank you - Post Discharge Activity Forms/Work/School Notes: Back to Work
[2017-11-11] MEDS ORDERED: morphine CARPU-JECT 4 MG/1 ML DISP.SYRIN IVPUSH ONE (14:45)
[2017-11-11 14:49] LABS: HCG,QUALITATIVE URINE Negative
[2017-11-11] MEDS ORDERED: morphine SULFATE 4 MG/ML VIAL ONE (14:50)
[2017-11-11] MEDS ORDERED: ONDANSETRON 4 MG/2 ML VIAL ONE (14:57)
[2017-11-11] MEDS ORDERED: ONDANSETRON 4 MG/2 ML VIAL IVPUSH ONE (14:59)
[2017-11-11 15:03] LABS: URINE APPEARANCE CLEAR; URINE BILIRUBIN NEGATIVE (<2.0 mg/dL); URINE COLOR LTYELLOW; URINE GLUCOSE (UA) NEGATIVE (NEGATIVE); URINE KETONE NEGATIVE (NEGATIVE); URINE LEUK ESTERASE NEGATIVE (NEGATIVE); URINE NITRITE NEGATIVE (NEGATIVE); URINE PROTEIN NEGATIVE (NEGATIVE); URINE UROBILINOGEN NEGATIVE mg/dL (0.2-1.0)
[2017-11-11 15:07] LABS: BASO % 2.2 % (0-2.0); HEMATOCRIT 35.7 % (32.4-45.2); LYMPH % 19.5 % (8-40); MCH 34.3 pg (25.7-33.7); MCHC 33.7 g/dl (32.0-36.0); MEAN CELL VOLUME 101.8 fl (80-96); MEAN PLT VOLUME 7.6 fl (7.5-11.1); NEUT % 64.3 % (42.8-82.8); PLATELET COUNT 273 K/MM3 (134-434); RBC 3.51 M/mm3 (3.60-5.2); RDW 14.8 % (11.6-15.6); WHITE BLOOD COUNT 5.2 K/mm3 (4.0-10.0)
[2017-11-11 15:28] LABS: ALBUMIN 3.3 g/dl (3.4-5.0); ALK PHOS 134 U/L (45-117); ANION GAP 10 MMOL/L (8-16); BILIRUBIN,TOTAL 0.6 mg/dL (0.2-1); BLOOD UREA NITROGEN 9 mg/dL (7-18); CALCIUM 8.7 mg/dL (8.5-10.1); CHLORIDE 103 mmol/L (98-107); CO2 27 mmol/L (21-32); CREATININE 0.7 mg/dL (0.55-1.3); GLUCOSE,RANDOM 69 mg/dL (74-106); LIPASE 119 U/L (73-393); SGOT/AST 293 U/L (15-37); SGPT/ALT 98 U/L (13-61); SODIUM 140 mmol/L (136-145); TOT PROT 6.8 g/dl (6.4-8.2)
--- NOTE | 2017-11-11 17:06 | PDOC ---
Attending Attestation - Resident Resident Name: VernonArnol - ED Attending Attestation I have performed the following: I have examined & evaluated the patient, The case was reviewed & discussed with the resident, I agree w/resident's findings & plan, Exceptions are as noted - Physicial Exam PE: 11/11/17 17:04 awake alert lungs clear bilaterally heart rrr no mrg. abd soft , mild suprapubic, rlq ttp. no rebound noguarding. no cva tenderness. skin warm and dry. alert oriented c 3. - Medical Decision Making 11/11/17 17:04 47 yo h/o gastric bypass, , here with c/o lower abd pain, x 3 days. missed 3 days of work. mild suprapubic and rlq ttp on exam. differential: appendicitis, sbo, comlication of gastric bypass, uti, pyelo, plan ct a/p focused eD us ruq, indication right sided abd pain. gallbladder scanned in two planes. no gallstones. normal wall thickness <4mm normal cbd <4mm. no wall edema, no sonographic arambula's, no pericholecystic fluid impression: normal gallbladder. <Ronit Fields - Last Filed: 11/11/17 17:04> - HPI HPI: 11/11/17 17:07 The patient is a 47 year old female with a significant past medical history of gastric bypass 6 years ago and hypothyroidism who presents to the ER with a 3 day history of right and left lower quadrant abdominal pain. Patient reports she had to take 3 days off of work secondary to her lower abdominal pain. Patient describes her abdominal pain as constant, sharp, nonradiating. Patient has not been eating well due to her pain. Patient took maalox at home with minimal relief. Patient reports normal bowel movements. Patient has a colonoscopy scheduled in a month. Patient denies history of STDs in the past. The patient denies chest pain, shortness of breath, headache, and dizziness. Denies fever, chills, nausea, vomit, diarrhea, and constipation. Denies dysuria, frequency, urgency, and hematuria. Allergies: NKA Past surgical history: None reported Social history: No reported alcohol, drug or cigarette use. PCP: Dr. Farooq <aMude Calderon - Last Filed: 11/11/17 17:07>
[2017-11-11] MEDS ORDERED: ACETAMINOPHEN 325 MG TABLET (FP) PO ONE (21:33)
[2017-11-11] MEDS ORDERED: ACETAMINOPHEN 325 MG TABLET (FP) ONE (21:52)
[2017-11-11 23:43] VITALS: BP 161/96; PULSE 86
== END 2017-11-11 23:43 | disposition home or self-care (01) ==
LOC: JER 13:16
PROC: 3E033NZ Introduction of Analgesics, Hypnotics, Sedatives into Peripheral Vein, Percutaneous Approach (ICD-10-PCS; principal; 2017-11-11)
PROC: 3E033GC Introduction of Other Therapeutic Substance into Peripheral Vein, Percutaneous Approach (ICD-10-PCS; 2017-11-11)
DX: R10.31 Right lower quadrant pain (principal); Z98.84 Bariatric surgery status; Z87.891 Personal history of nicotine dependence; E07.9 Disorder of thyroid, unspecified
CPT/HCPCS: 36415; 74177-TC; 76830-TC; 80053; 81003; 83690; 84703; 85025; 99283-25

== ENCOUNTER 2018-05-29 21:42 | Emergency (ER) | payer OTHER ==
[2018-05-29 21:46] VITALS: BP 144/93; PULSE 105; TEMP 98.5; BMI 26.5
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
[2018-05-29] MEDS ORDERED: IBUPROFEN 600 MG TABLET (FP) PO ONE ×2 (22:39→22:54)
[2018-05-29] MEDS ORDERED: SILVER SULFADIAZINE 1% TOP CREAM 50 GM JAR TP ONE ×2 (22:39→22:54)
== END 2018-05-30 01:05 | disposition home or self-care (01) ==
LOC: JER 21:42 → JERFT 21:42 → JER 05-30 01:05
DX: S90.821A Blister (nonthermal), right foot, initial encounter (principal); M25.562 Pain in left knee; X58.XXXA Exposure to other specified factors, initial encounter; Y93.89 Activity, other specified; Y92.89 Other specified places as the place of occurrence of the external cause; Y99.8 Other external cause status
CPT/HCPCS: 73562-TC-LT-FY; 99281-25

== ENCOUNTER 2018-06-22 08:55 | Emergency (ER) | payer OTHER ==
[2018-06-22 09:02] VITALS: BP 149/104; PULSE 98; TEMP 98.2; BMI 26.5
[2018-06-22] MEDS ORDERED: diazePAM 2 MG TABLET PO ONE (09:33)
[2018-06-22] MEDS ORDERED: LIDOCAINE 5% TOPICAL PATCH TP ONE (09:33)
[2018-06-22] MEDS ORDERED: KETOROLAC TROMETHAMINE 60 MG/2 ML VIAL IM ONE (09:33)
--- NOTE | 2018-06-22 09:33 | PDOC ---
History of Present Illness - General Chief Complaint: Injury Stated Complaint: FALL / HIP & LEG PAIN Time Seen by Provider: 06/22/18 09:17 History Source: Patient Exam Limitations: No Limitations Past History - Travel Traveled outside of the country in the last 30 days: No Close contact w/someone who was outside of country & ill: No - Past Medical History Allergies/Adverse Reactions: Allergies Allergy/AdvReac Type Severity Reaction Status Date / Time No Known Allergies Allergy Verified 06/22/18 08:57 Home Medications: Ambulatory Orders Levothyroxine [Synthroid -] 50 mcg PO DAILY@0700 #0 tablet 08/30/16 Cephalexin [Keflex] 500 mg PO TID #20 capsule 05/30/18 COPD: No Thyroid Disease: Yes - Surgical History Abdominal Surgery: Yes (gastric bypass) - Immunization History Immunization Up to Date: Yes - Suicide/Smoking/Psychosocial Hx Smoking History: Never smoked Have you smoked in the past 12 months: No Number of Cigarettes Smoked Daily: 2 If you are a former smoker, when did you quit?: 1996 Hx Alcohol Use: No Drug/Substance Use Hx: No Substance Use Type: None Review of Systems - Review of Systems Able to Perform ROS?: Yes Comments:: 06/22/18 09:32 CONSTITUTIONAL: Absent: fever, chills, diaphoresis, generalized weakness, malaise, loss of appetite GASTROINTESTINAL: Absent: abdominal pain, abdominal distension, nausea, vomiting, diarrhea, constipation, melena, hematochezia GENITOURINARY: Absent: dysuria, frequency, urgency, hesitancy, hematuria, flank pain, genital pain MUSCULOSKELETAL: Present: low back pain, R leg pain Absent: arthralgia, joint swelling SKIN: Absent: rash, itching, pallor NEUROLOGIC: Absent: headache, focal weakness or paresthesias, dizziness, unsteady gait, seizure, mental status changes, bladder or bowel incontinence PSYCHIATRIC: Absent: anxiety, depression, suicidal or homicidal ideation, hallucinations. Is the patient limited Salvadorean proficient: No *Physical Exam - Vital Signs Last Vital Signs Temp Pulse Resp BP Pulse Ox 98.2 F 98 H 18 149/104 H 98 06/22/18 08:58 06/22/18 08:58 06/22/18 08:58 06/22/18 08:58 06/22/18 08:58 - Physical Exam Comments: 06/22/18 09:32 GENERAL: Well developed, well nourished. Awake and alert. No acute distress. NECK: Supple. Full ROM. No JVD. Carotid pulses 2+ and symmetric, without bruits. No thyromegaly. No lymphadenopathy. MUSCULOSKELETAL TTP of the R paraspinous muscles, L5-S1, with palpable knot consistent with muscle spasm. (+) straight leg raise test on the R. No Midline tenderness. Normal range of motion at all joints. No bony deformities or tenderness. No CVA tenderness. EXTREMITIES: No cyanosis. No clubbing. No edema. No calf tenderness. SKIN: Warm and dry. Normal capillary refill. No rashes. No jaundice. NEUROLOGICAL: Alert, awake, appropriate. Cranial nerves 2-12 intact. No deficits to light touch and temperature in face, upper extremities and lower extremities. No motor deficits in the in face, upper extremities and lower extremities. Normoreflexic in the upper and lower extremities. Normal speech. Toes are down- going bilaterally. Gait is normal without ataxia. PSYCHIATRIC: Cooperative. Good eye contact. Appropriate mood and affect. Medical Decision Making - Medical Decision Making 06/22/18 09:32 the patient is a 48-year-old female with past medical history of hypothyroidism , who presents to the emergency department today for right-sided low back pain. She states that her symptoms started 06/20/18 after she slipped and fell at work. She states that she missed a step and landed on her right side. She states that since then the pain in her low back has gotten worse and tightened up. She states that she now has pain running down her leg. Denies fevers, chills, nausea, vomiting, lightheadedness, weakness, gait changes, saddle anesthesia, bladder/bowel incontinence. A/P: Low back pain -Pt with TTP of the R paraspinous muscles, L5-S1, with palpable knot consistent with muscle spasm. (+) straight leg raise test on the R. No Midline tenderness. -No trauma, or fever. No saddle anesthesia or bladder/bowel incontinence. No CVA tenderness. -Pt is neurologically intact on exam with no focal findings. -Toradol given with relief of symptoms -X-ray is negative for fracture -DC home. Pt to f/u with her PCP. Ortho referral given. -I discussed the physical exam findings, ancillary test results and final diagnoses with the patient. I answered all of the patient's questions. The patient was satisfied with the care received and felt comfortable with the discharge plan and treatment plan. The Patient agrees to follow up with the primary care physician/specialist within 24-72 hours. Return precautions were given. *DC/Admit/Observation/Transfer Diagnosis at time of Disposition: Low back pain Qualifiers: Chronicity: acute Back pain laterality: right Sciatica presence: with sciatica Sciatica laterality: sciatica of right side Qualified Code(s): M54.41 - Lumbago with sciatica, right side - Discharge Dispostion Disposition: HOME Condition at time of disposition: Stable Decision to Admit order: No - Referrals Referrals: Jake Lagunas DO [Staff Physician] - - Patient Instructions Printed Discharge Instructions: DI for Low Back Pain Additional Instructions: You were evaluated for your low back pain today. It is most likely due to a muscle spasm Please take the Tylenol as directed Take the Flexiril every 8 hours the first day. Then take the medication at night only. Do not drink or drive after taking this medication as it may make you drowsy. You may apply warm compresses to the area. Please follow up with orthopedics if your symptoms do not improve this week; a referral has been provided to you Return to the ER for worsening pain despite treatment, numbness/weakness down the extremities, changes in the way you walk, numbness/tingling to the groin, if you have bladder/bowel incontinence, or if you have any changes in your symptoms. - Post Discharge Activity Forms/Work/School Notes: Back to Work
[2018-06-22] MEDS ORDERED: KETOROLAC TROMETHAMINE 60 MG/2 ML VIAL ONE (09:49)
[2018-06-22] MEDS ORDERED: LIDOCAINE 5% TOPICAL PATCH ONE ×2 (09:49→09:50)
[2018-06-22] MEDS ORDERED: diazePAM 2 MG TABLET ONE (09:50)
[2018-06-22] MEDS ORDERED: LIDOCAINE PATCH REMOVAL MC SCH (22:00)
== END 2018-06-22 10:49 | disposition home or self-care (01) ==
LOC: JERFT 08:55
PROC: 3E0233Z Introduction of Anti-inflammatory into Muscle, Percutaneous Approach (ICD-10-PCS; principal; 2018-06-22)
DX: M54.41 Lumbago with sciatica, right side (principal); W10.9XXA Fall (on) (from) unspecified stairs and steps, initial encounter; Y93.89 Activity, other specified; Y92.89 Other specified places as the place of occurrence of the external cause; Y99.0 Civilian activity done for income or pay; E03.9 Hypothyroidism, unspecified; Z87.891 Personal history of nicotine dependence; E07.9 Disorder of thyroid, unspecified; Z98.84 Bariatric surgery status
CPT/HCPCS: 72100-TC-FY; 96372; 99281-25

== ENCOUNTER 2018-11-13 13:23 | Emergency (ER) | payer OTHER ==
[2018-11-13 14:06] VITALS: BMI 29.0
--- NOTE | 2018-11-13 15:35 | PDOC ---
History of Present Illness - General Chief Complaint: Nausea Stated Complaint: PAINS / WEAKNESS Time Seen by Provider: 11/13/18 15:18 History Source: Patient - History of Present Illness Occurred: reports: other Severity: Yes: severe Past History - Past Medical History Allergies/Adverse Reactions: Allergies Allergy/AdvReac Type Severity Reaction Status Date / Time No Known Allergies Allergy Verified 06/22/18 08:57 Home Medications: Ambulatory Orders Levothyroxine [Synthroid -] 50 mcg PO DAILY@0700 #0 tablet 08/30/16 Cephalexin [Keflex] 500 mg PO TID #20 capsule 05/30/18 Cyclobenzaprine HCl [Flexeril 10 mg] 10 mg PO HS PRN #10 tablet 06/22/18 COPD: No Thyroid Disease: Yes - Surgical History Abdominal Surgery: Yes (gastric bypass) - Immunization History Immunization Up to Date: Yes - Suicide/Smoking/Psychosocial Hx Smoking History: Never smoked Have you smoked in the past 12 months: No Number of Cigarettes Smoked Daily: 2 If you are a former smoker, when did you quit?: 1996 Information on smoking cessation initiated: No Hx Alcohol Use: Yes ("Occasional") Drug/Substance Use Hx: No Substance Use Type: None Review of Systems - Review of Systems Constitutional: No: Chills, Fever ABD/GI: Yes: Nausea, Poor Fluid Intake. No: Blood Streaked Bowels, Constipated , Diarrhea, Vomiting, Tarry Stools : No: Dysuria *Physical Exam - Vital Signs Last Vital Signs Temp Pulse Resp BP Pulse Ox 98.3 F 120 H 20 180/109 H 99 11/13/18 14:01 11/13/18 14:01 11/13/18 14:01 11/13/18 14:01 11/13/18 14:01 - Physical Exam Comments: 11/13/18 16:03 pt tremulous General Appearance: Yes: Appropriately Dressed, Mild Distress HEENT: positive: Normal Voice Neck: positive: Supple Respiratory/Chest: negative: Respiratory Distress Gastrointestinal/Abdominal: positive: Normal Bowel Sounds, Tender (sig ttp to LLQ), Soft. negative: Distended, Guarding, Rebound Musculoskeletal: negative: CVA Tenderness Integumentary: positive: Dry, Warm Neurologic: positive: Fully Oriented, Alert Medical Decision Making - Medical Decision Making 11/13/18 15:32 49-year-old female, history of hypothyroid, sciatica, here with LLQ pain x 4 days. Sen at [facility] M.D[facility] 4 days ago and has since been on Levaquin and Flagyl, but states pain continues and now feels nauseous. No vomiting, change in bowel movements, fever or chills. No history of similar pain. see exam R/o diverticulitis On abx w/ no improvement No imaging prior to abx Sig hypertensive and tachy (?2/2pain) w/ sig ttp to LLQ -pain control -zofrna -IVF -labs -CT Fine temors here Tachy to 120 and hypertensive, ? 2/2 pain Reports multiple drinks per week but no h/o etoh abuse, last drink yesterday -IVF -drug screen/etoh lvl 11/13/18 16:03 Pt signed out to EVERARDO Graff at this time *DC/Admit/Observation/Transfer - Referrals Referrals: Jenifer Zepeda MD [Primary Care Provider] - - Patient Instructions - Post Discharge Activity
[2018-11-13] MEDS ORDERED: ACETAMINOPHEN 1000 MG/100 ML VIAL (NON FORMULARY) IVPB ONE (15:36)
[2018-11-13] MEDS ORDERED: ONDANSETRON 4 MG/2 ML VIAL IVPUSH ONE (15:37)
[2018-11-13] MEDS ORDERED: SODIUM CHLORIDE 1,000 ML IV STA (15:37)
[2018-11-13] MEDS ORDERED: ACETAMINOPHEN INJECTION 100 ML IVPB ONE (16:30)
[2018-11-13] MEDS ORDERED: ONDANSETRON 4 MG/2 ML VIAL ONE (16:30)
--- NOTE | 2018-11-13 16:48 | PDOC ---
*Physical Exam - Vital Signs Last Vital Signs Temp Pulse Resp BP Pulse Ox 98.3 F 120 H 20 180/109 H 99 11/13/18 14:01 11/13/18 14:01 11/13/18 14:01 11/13/18 14:01 11/13/18 14:01 - Physical Exam Comments: 11/13/18 16:46 Sign-out received from outgoing ER provider Layc. Pt interviewed and examined. Ancillary studies reviewed. Patient tachycardic and hypertensive on arrival, will add EKG and repeat VS. Laboratory Tests 11/13/18 11/13/18 11/13/18 16:42 16:42 16:42 Neutrophils % 88.9 H D Lymphocytes % 5.1 L D Total Bilirubin 1.9 H AST 425 H ALT 101 H Alkaline Phosphatase 314 H Urine Protein 1+ H Urine Ketones 1+ H Urine Nitrite Positive H Urine Bilirubin 1+ H Patient urine + for nitrites, patient already on levaquin from [facility]. Will add macrobid for possible ESBL. Patient reassessed, continues to c/o of LLQ pain, NO pain or tenderness to RUQ/epigastrum. Awaiting CT results. 11/13/18 18:48 Laboratory Tests 11/13/18 11/13/18 11/13/18 16:42 16:42 16:42 Total Bilirubin 1.9 H AST 425 H ALT 101 H Urine Protein 1+ H Urine Ketones 1+ H Urine Nitrite Positive H Opiates Screen Positive A* Phencyclidine Screen Positive A* Cocaine Screen Positive A* 11/13/18 19:51 CT negative. Patient reports pain has improved significantly. Patient to continue abx prescribed by [facility] with addition of macrobid and f/u with GI. UCx sent for sensitivities. Strict return precautions given. ED Treatment Course - LABORATORY CBC & Chemistry Diagram: 11/13/18 16:42 11/13/18 16:42 *DC/Admit/Observation/Transfer Diagnosis at time of Disposition: UTI (urinary tract infection) Qualifiers: Urinary tract infection type: site unspecified Hematuria presence: without hematuria Qualified Code(s): N39.0 - Urinary tract infection, site not specified - Discharge Dispostion Disposition: HOME Condition at time of disposition: Stable Decision to Admit order: No - Prescriptions Prescriptions: Nitrofurantoin Macrocrystal [Nitrofurantoin] 100 mg PO BID #20 capsule - Referrals Referrals: Jenifer Zepeda MD [Primary Care Provider] - Sanjay Rosen MD [Staff Physician] - - Patient Instructions Printed Discharge Instructions: DI for Urinary Tract Infection (UTI) Additional Instructions: As discussed, please take all medications as prescribed. Follow up with GI this week for continued monitoring and further evaluation of your symptoms. If you develop fever, chills, nausea, vomiting, and diarrhea, please return to the ER immediately. - Post Discharge Activity Forms/Work/School Notes: Back to Work
[2018-11-13 16:57] LABS: BASO % 0.6 % (0-2.0); HEMATOCRIT 37.3 % (32.4-45.2); HEMOGLOBIN 12.1 GM/dL (10.7-15.3); LYMPH % 5.1 % (8-40); MCH 33.4 pg (25.7-33.7); MCHC 32.5 g/dl (32.0-36.0); MEAN CELL VOLUME 102.8 fl (80-96); MEAN PLT VOLUME 7.5 fl (7.5-11.1); MONO % 5.4 % (3.8-10.2); NEUT % 88.9 % (42.8-82.8); PLATELET COUNT 318 K/MM3 (134-434); RBC 3.63 M/mm3 (3.60-5.2); RDW 21.4 % (11.6-15.6); WHITE BLOOD COUNT 8.3 K/mm3 (4.0-10.0)
[2018-11-13 16:59] LABS: EPI CELLS 5.5 /HPF (0-5/HPF); HYALINE CASTS 14 /lpf (0-8); PH,URINE 5.5 (5.0-8.0); URINE APPEARANCE CLOUDY; URINE BILIRUBIN 1+ (NEGATIVE); URINE COLOR ORANGE; URINE GLUCOSE (UA) NEGATIVE (NEGATIVE); URINE KETONE 1+ (NEGATIVE); URINE LEUK ESTERASE TRACE (NEGATIVE); URINE NITRITE POSITIVE (NEGATIVE); URINE PROTEIN 1+ (NEGATIVE); URINE RBC 4 /hpf (0-4); URINE WBC 11 /hpf (0-5)
[2018-11-13 17:06] LABS: METHADONE, UR NEGATIVE ng/ml (CUTOFF=300); URINE BARBITURATES NEGATIVE ng/ml (CUTOFF=200); URINE BENZODIAZEPINES NEGATIVE ng/ml (CUTOFF=200)
[2018-11-13 17:28] LABS: ALBUMIN 3.5 g/dl (3.4-5.0); BILIRUBIN,TOTAL 1.9 mg/dL (0.2-1); BLOOD UREA NITROGEN 3.8 mg/dL (7-18); CREATININE 0.6 mg/dL (0.55-1.3); POTASSIUM 4.2 mmol/L (3.5-5.1); TOT PROT 7.2 g/dl (6.4-8.2)
[2018-11-13 17:29] LABS: ANISOCYTOSIS 2+; MACROCYTOSIS 2+; PLATELET ESTIMATE NORMAL
[2018-11-13 18:11] LABS: URINE AMPHETAMINES NEGATIVE ng/ml (CUTOFF=500)
[2018-11-13 18:18] LABS: COCAINE, UR POSITIVE ng/ml (CUTOFF=300)
[2018-11-13 18:45] LABS: OPIATES, URI POSITIVE ng/ml (CUTOFF=300)
[2018-11-13 18:46] LABS: PHENCYCLIDINE,URINE POSITIVE ng/ml (CUTOFF=25)
[2018-11-13 20:27] VITALS: BP 162/91; PULSE 96; TEMP 98.7
--- NOTE | 2018-11-14 18:23 | EKG ---
Test Reason : Blood Pressure : / mmHG Vent. Rate : 099 BPM Atrial Rate : 099 BPM P-R Int : 132 ms QRS Dur : 074 ms QT Int : 368 ms P-R-T Axes : 052 045 063 degrees QTc Int : 472 ms NORMAL SINUS RHYTHM NORMAL ECG WHEN COMPARED WITH ECG OF 29-AUG-2016 02:19, NO SIGNIFICANT CHANGE WAS FOUND Confirmed by DWIGHT MCARTHUR MD ([id number]) on 11/14/2018 6:22:56 PM Referred By: Confirmed By:DWIGHT MCARTHUR MD
== END 2018-11-13 20:47 | disposition home or self-care (01) ==
LOC: JER 13:23
PROC: 3E033NZ Introduction of Analgesics, Hypnotics, Sedatives into Peripheral Vein, Percutaneous Approach (ICD-10-PCS; principal; 2018-11-13)
PROC: 3E033GC Introduction of Other Therapeutic Substance into Peripheral Vein, Percutaneous Approach (ICD-10-PCS; 2018-11-13)
DX: N39.0 Urinary tract infection, site not specified (principal); I10 Essential (primary) hypertension; E03.9 Hypothyroidism, unspecified
CPT/HCPCS: 36415; 74177-TC; 80053; 80307; 81003; 83690; 85025; 93005; 93010; 96374; 96375; 99284-25; J0131; J7030

== ENCOUNTER 2019-03-20 08:50 | Inpatient (IN) | payer OTHER ==
[2019-03-20 09:42] VITALS: BMI 31.3
--- NOTE | 2019-03-20 09:54 | HP ---
CIWA Score Nausea/Vomitin-No Nausea/No Vomiting Muscle Tremors: None Anxiety: 2 Agitation: 0-Normal Activity Paroxysmal Sweats: No Perspiration Orientation: 0-Oriented Tacttile Disturbances: 0-None Auditory Disturbances: 0-None Visual Disturbances: 0-None Headache: 3-Moderate CIWA-Ar Total Score: 5 - Admission Criteria OASAS Guidelines: Admission for Medically Managed Detox: Requires at least one of the followin. CIWA greater than 12 2. Seizures within the past 24 hours 3. Delirium tremens within the past 24 hours 4. Hallucinations within the past 24 hours 5. Acute intervention needed for co occurring medical disorder 6. Acute intervention needed for co occurring psychiatric disorder 7. Severe withdrawal that cannot be handled at a lower level of care (continued vomiting, continued diarrhea, abnormal vital signs) requiring intravenous medication and/or fluids 8. Admitting History and Physical - Admission Chief Complaint: " I want to get myself clean." History of Present Illness: 49 year old female with history of alcohol dependence who completed detox in [facility] on 03/08/19 and was referred to [facility] for rehab. She does admit to drinking 6 shots of vodka but really wants to enter rehab because she feels that she needs support and group treatment to remain abstinent. She has been to multiple detoxes with multiple relapses. Patient occasionally uses cocaine 1-3/ month. She will be admitted for rehab here. PMH: Asthma, GERD and Hypothyroidism. Psurg: Gastric Bypass 2012 and 3 C/S's Psych: Depression Bipolar at [facility]' attempted suicide 2018 with tylenol overdose - Past Medical History ...: No Musculoskeletal: Yes: Chronic low back pain Endocrine: Yes: Hypothyroidism - Past Surgical History Past Surgical History: Yes: Bariatric Surgery (lap gastric bypass [address] [facility] [address]; lost 125#, gained ~20 back), (x3 with BTL at last 16 yrs ago), Tubal Ligation - Smoking History Smoking history: Former smoker Have you smoked in the past 12 months: No Aproximately how many cigarettes per day: 2 If you are a former smoker, when did you quit?: 1996 - Alcohol/Substance Use Hx Alcohol Use: Yes ("Occasional") History of Substance Use: reports: None Admission ROS [facility] Allergies/Adverse Reactions: Allergies Allergy/AdvReac Type Severity Reaction Status Date / Time No Known Allergies Allergy Verified 06/22/18 08:57 Exam Limitations: No Limitations - Ebola screening Have you traveled outside of the country in the last 21 days: No Have you had contact with anyone from an Ebola affected area: No Have you been sick,other than usual withdrawal symptoms: No Do you have a fever: No - Review of Systems Constitutional: No Symptoms Reported EENT: reports: No Symptoms Reported Respiratory: reports: No Symptoms reported Cardiac: reports: No Symptoms Reported GI: reports: Nausea : reports: No Symptoms Reported Musculoskeletal: reports: No Symptoms Reported Integumentary: reports: No Symptoms Reported Neuro: reports: No Symptoms reported Endocrine: reports: No Symptoms Reported Hematology: reports: No Symptoms Reported Psychiatric: reports: Mood/Affect Appropiate, Orientated x3, Anxious, Depressed Other Systems: Reviewed and Negative Patient History - Patient Medical History Hx Asthma: Yes Hx Chronic Obstructive Pulmonary Disease (COPD): No Hx Cardiac Disorders: No Hx Hypertension: No Hx Seizures: No Hx Diabetes: No Hx Gastrointestinal Disorders: Yes (Pt has a hx of GERD.) Hx Genitourinary Disorders: No Hx Sexually Transmitted Disorders: No Hx Renal Disease (ESRD): No Hx Thyroid Disease: Yes Hx Suicide Attempt: Yes (Tried to take Tylenols in 2018) Hx Schizophrenia: No - Patient Surgical History Past Surgical History: Yes Hx Abdominal Surgery: Yes (gastric bypass 05/2012) Hx Section: Yes (X3) Anesthesia Reaction: No - PPD History Previous Implant?: Yes Documented Results: Negative w/o proof Implanted On Prior [facility] Admission?: No PPD to be Administered?: Yes - Reproductive History Patient : No - Smoking Cessation Smoking history: Former smoker Have you smoked in the past 12 months: No Aproximately how many cigarettes per day: 2 If you are a former smoker, when did you quit?: 1996 Hx Chewing Tobacco Use: No Initiated information on smoking cessation: No - Substance & Tx. History Hx Alcohol Use: Yes Hx Substance Use: No Substance Use Type: Alcohol - Substances abused Alcohol Substance route: Oral Frequency: Daily Amount used: 1/2 pint vodka Age of first use: 14 Date of last use: 03/15/19 Cocaine Substance route: Inhalation Frequency: 1-3 times last 30 days Amount used: $10 Age of first use: 17 Date of last use: 03/16/19 Admission Physical Exam [facility] - Vital Signs Vital Signs: Vital Signs - 24 hr 03/20/19 09:30 Temperature 97.0 F L Pulse Rate 97 H Respiratory 18 Rate Blood Pressure 131/90 - Physical General Appearance: Yes: Nourished, Appropriately Dressed, Anxious HEENTM: Yes: EOMI, Hearing grossly Normal, Normal ENT Inspection, Normocephalic , Normal Voice, JACQUE, Pharynx Normal, Tm's normal Respiratory: Yes: Chest Non-Tender, Lungs Clear, Normal Breath Sounds, No Respiratory Distress, No Accessory Muscle Use Neck: Yes: No masses,lesions,Nodules, Supple, Trachea in good position Breast: Yes: Breast Exam Deferred Cardiology: Yes: Regular Rhythm, Regular Rate, S1, S2 Abdominal: Yes: Normal Bowel Sounds, Non Tender, Flat, Soft, Protuberent Genitourinary: Yes: Within Normal Limits Back: Yes: Normal Inspection Musculoskeletal: Yes: full range of Motion, Gait Steady, Pelvis Stable Extremities: Yes: Normal Capillary Refill, Normal Inspection, Normal Range of Motion, Non-Tender, Other (trace edema) 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: 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: 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 NML intact, Fully Oriented, Alert, Motor Strength 5/5, Normal Mood/Affect, Normal Response Integumentary: Yes: Normal Color, Warm Lymphatic: Yes: Within Normal Limits - Diagnostic (1) Alcohol dependence in early, early partial, sustained full, or sustained partial remission Current Visit: Yes Status: Acute (2) Hypothyroidism Current Visit: Yes Status: Acute (3) Obesity Current Visit: Yes Status: Acute (4) GERD (gastroesophageal reflux disease) Current Visit: Yes Status: Acute (5) Asthma Current Visit: Yes Status: Acute Screened but not Admitted - Documentation of Visit Screened but not Admitted: No Breathalyzer - Breathalyzer Breathalyzer: 0 Urine Drug Screen - Test Device Lot number: [id number] Expiration date: 09/21/20 - Control Is test valid?: Yes - Results Drug screen NEGATIVE: No Urine drug screen results: VISHNU-Cocaine, BZO-Benzodiazepines Inpatient Rehab Admission - Rehab Decision to Admit Inpatient rehab admission?: Yes - Initial Determination Are CD services needed?: Yes Free of communicable disease: Yes Not in need of hospitalization: Yes - Rehab Admission Criteria Previous failed treatment: Yes Poor recovery environment: Yes Comorbidities: Yes Lacks judgement: Yes Patient is meeting Inpatient Rehab admission criteria:: Yes
[2019-03-20] MEDS ORDERED: guaiFENesin 200 MG/10 ML 10 ML UNIT-DOSE CUPS PO PRN (10:02)
[2019-03-20] MEDS ORDERED: MAGNESIUM CITRATE 300 ML BOTTLE PO PRN (10:02)
[2019-03-20] MEDS ORDERED: P-EPHED 60MG/TRIPROLIDI 2.5MG TABLET PO PRN (10:02)
[2019-03-20] MEDS ORDERED: MAGNESIUM HYDROX 2400MG/30ML ORAL SUSPENSION 30 ML CUP PO PRN (10:02)
[2019-03-20] MEDS ORDERED: MAG HYDROX/AL HYDROX/SIMETH 30 ML UNIT-DOSE CUP PO PRN (10:02)
[2019-03-20] MEDS ORDERED: LOPERAMIDE HCL 2 MG CAPSULE PO PRN (10:02)
[2019-03-20] MEDS ORDERED: IBUPROFEN 400 MG TABLET (FP) PO PRN (10:02)
[2019-03-20] MEDS ORDERED: MENTHOL/PHENOL 1 EACH UD MM PRN (10:02)
[2019-03-20] MEDS ORDERED: ALBUTEROL SO4 HFA INHALER IH PRN (10:04)
[2019-03-20] MEDS: PANTOPRAZOLE 40 MG TABLET PO SCH (11:16)
[2019-03-20] MEDS ORDERED: TUBERCULIN PPD 5 TU/0.1ML VIAL ID ONE (11:16)
[2019-03-20] MEDS: FOLIC ACID 1 MG TABLET (FP) PO SCH (11:17)
[2019-03-20] MEDS: LEVOTHYROXINE NA 25 MCG TABLET (FP) PO SCH (11:17)
[2019-03-20] MEDS: THIAMINE HCL 100 MG TABLET (FP) PO SCH (11:17)
[2019-03-20 14:08] LABS: HEMATOCRIT 32.1 % (32.4-45.2); HEMOGLOBIN 10.3 GM/dL (10.7-15.3); MCH 32.1 pg (25.7-33.7); MEAN CELL VOLUME 100.3 fl (80-96); MEAN PLT VOLUME 8.6 fl (7.5-11.1); PLATELET COUNT 543 K/MM3 (134-434); RDW 24.2 % (11.6-15.6); WHITE BLOOD COUNT 9.7 K/mm3 (4.0-10.0)
[2019-03-20 14:20] LABS: ALBUMIN 2.8 g/dl (3.4-5.0); BILIRUBIN,TOTAL 0.9 mg/dL (0.2-1); BLOOD UREA NITROGEN 3.9 mg/dL (7-18); CALCIUM 8.9 mg/dL (8.5-10.1); CREATININE 0.5 mg/dL (0.55-1.3); POTASSIUM 3.8 mmol/L (3.5-5.1); TOT PROT 6.5 g/dl (6.4-8.2)
[2019-03-20] MEDS: QUEtiapine FUMARATE 50 MG TABLET PO SCH (21:38)
[2019-03-20] MEDS: PATIENT'S OWN MEDICATION (NON-FORMULARY) (Propylene Glycol/Peg 400/Pf [Systane 0.3-0.4% Ey OP SCH (22:25)
[2019-03-21] MEDS: LEVOTHYROXINE NA 25 MCG TABLET (FP) PO SCH (06:21)
[2019-03-21] MEDS: ACETAMINOPHEN 325 MG TABLET (FP) PO PRN (06:22)
[2019-03-21] MEDS: PATIENT'S OWN MEDICATION (NON-FORMULARY) (Propylene Glycol/Peg 400/Pf [Systane 0.3-0.4% Ey OP SCH ×2 (10:04→21:13)
[2019-03-21] MEDS: PATIENT'S OWN MEDICATION (NON-FORMULARY) (Diclofenac Sodium [Diclofenac Sodium Er] 100 MG) PO SCH (10:04)
[2019-03-21] MEDS: PANTOPRAZOLE 40 MG TABLET PO SCH (10:05)
[2019-03-21] MEDS: PRENATAL VITAMINS W/ FOLIC ACID TABLET (FP) PO SCH (10:05)
[2019-03-21] MEDS: FOLIC ACID 1 MG TABLET (FP) PO SCH (10:05)
[2019-03-21] MEDS: THIAMINE HCL 100 MG TABLET (FP) PO SCH (10:05)
[2019-03-21] MEDS: ESCITALOPRAM OXALATE 10 MG TABLET PO SCH (10:05)
[2019-03-21] MEDS ORDERED: COLLOIDAL OATMEAL 1 BAR EACH TP PRN (10:41)
--- NOTE | 2019-03-21 13:23 | PN ---
[facility] Progress Note Note: Pt is a 49 y/o female with a hx of NELDA-alcohol,cocaine(sporadic) admitted to rehab from [facility]. Pt reports hx of CD(detox) in other facilities(Last in [facility],two weeks ago). This is pt's first time in this facility. PMHx:Hypothyroidism(on synthroid),Arthritis,Asthma,Gastric bypass Sx( 1995); Psych Hx:Bipolar Disorder. Pt reports she has a primary care provider on [facility], Dr. Lindy Chaudhari for medical management. Pt reports she will make appointment to follow up with his provider after rehab treatment. Vital Signs - 24 hr 03/21/19 03/21/19 03/21/19 00:30 03:30 06:56 Temperature 98.4 F Pulse Rate 92 H Respiratory 18 18 17 Rate Blood Pressure 121/86 Alert o x 3 nad oob ambulating with steady gait. extermities/Skin:slight LE swelling,bilat.; skin intact. A/P new rehab pt Maintain safety Labs and meds reviewed. Elevate both legs while in bed.
[2019-03-21] MEDS ORDERED: FERROUS SO4 325 MG TABLET (FP) PO ONE (13:55)
[2019-03-21] MEDS: QUEtiapine FUMARATE 50 MG TABLET PO SCH (21:12)
[2019-03-22] MEDS: LEVOTHYROXINE NA 25 MCG TABLET (FP) PO SCH (06:28)
[2019-03-22] MEDS: PATIENT'S OWN MEDICATION (NON-FORMULARY) (Diclofenac Sodium [Diclofenac Sodium Er] 100 MG) PO SCH (09:46)
[2019-03-22] MEDS: FOLIC ACID 1 MG TABLET (FP) PO SCH (09:49)
[2019-03-22] MEDS: PRENATAL VITAMINS W/ FOLIC ACID TABLET (FP) PO SCH (09:49)
[2019-03-22] MEDS: PATIENT'S OWN MEDICATION (NON-FORMULARY) (Propylene Glycol/Peg 400/Pf [Systane 0.3-0.4% Ey OP SCH ×2 (09:49→21:05)
[2019-03-22] MEDS: ESCITALOPRAM OXALATE 10 MG TABLET PO SCH (09:49)
[2019-03-22] MEDS: THIAMINE HCL 100 MG TABLET (FP) PO SCH (09:50)
[2019-03-22] MEDS: PANTOPRAZOLE 40 MG TABLET PO SCH (09:50)
[2019-03-22] MEDS ORDERED: FERROUS SO4 325 MG TABLET (FP) PO SCH (10:00)
[2019-03-22] MEDS: FERROUS SO4 325 MG TABLET (FP) PO SCH (10:43)
[2019-03-22] MEDS: ACETAMINOPHEN 325 MG TABLET (FP) PO PRN (14:28)
[2019-03-22] MEDS: QUEtiapine FUMARATE 50 MG TABLET PO SCH (21:05)
[2019-03-22] MEDS: MELATONIN 5 MG TABLETS PO PRN (21:05)
[2019-03-23] MEDS: LEVOTHYROXINE NA 25 MCG TABLET (FP) PO SCH (06:37)
[2019-03-23] MEDS: PATIENT'S OWN MEDICATION (NON-FORMULARY) (Diclofenac Sodium [Diclofenac Sodium Er] 100 MG) PO SCH (10:12)
[2019-03-23] MEDS: FOLIC ACID 1 MG TABLET (FP) PO SCH (10:12)
[2019-03-23] MEDS: FERROUS SO4 325 MG TABLET (FP) PO SCH (10:12)
[2019-03-23] MEDS: THIAMINE HCL 100 MG TABLET (FP) PO SCH (10:13)
[2019-03-23] MEDS: PRENATAL VITAMINS W/ FOLIC ACID TABLET (FP) PO SCH (10:13)
[2019-03-23] MEDS: ESCITALOPRAM OXALATE 10 MG TABLET PO SCH (10:13)
[2019-03-23] MEDS: PANTOPRAZOLE 40 MG TABLET PO SCH (10:13)
[2019-03-23] MEDS: PATIENT'S OWN MEDICATION (NON-FORMULARY) (Propylene Glycol/Peg 400/Pf [Systane 0.3-0.4% Ey OP SCH ×2 (10:13→22:00)
[2019-03-23 17:11] LABS: URINE APPEARANCE CLOUDY; URINE BILIRUBIN NEGATIVE (NEGATIVE); URINE GLUCOSE (UA) NEGATIVE (NEGATIVE); URINE KETONE NEGATIVE (NEGATIVE)
[2019-03-23 17:12] LABS: PH,URINE 5.5 (5.0-8.0); URINE LEUK ESTERASE TRACE (NEGATIVE); URINE NITRITE NEGATIVE (NEGATIVE); URINE PROTEIN NEGATIVE (NEGATIVE)
[2019-03-23 17:17] LABS: EPI CELLS 6.9 /HPF (0-5/HPF); HYALINE CASTS 22 /lpf (0-8); URINE BACTERIA 517.2 /hpf (NEGATIVE); URINE COLOR DK YELLOW; URINE RBC 5 /hpf (0-4); URINE WBC 5 /hpf (0-5)
[2019-03-23 17:45] LABS: URINE CRYSTALS FEW /hpf
[2019-03-23] MEDS: QUEtiapine FUMARATE 50 MG TABLET PO SCH (21:59)
[2019-03-23] MEDS: MELATONIN 5 MG TABLETS PO PRN (21:59)
[2019-03-23] MEDS ORDERED: PT OWN MED DRAWER 7, Y5N ONE (22:05)
[2019-03-24] MEDS: LEVOTHYROXINE NA 25 MCG TABLET (FP) PO SCH (06:23)
[2019-03-24] MEDS: PATIENT'S OWN MEDICATION (NON-FORMULARY) (Diclofenac Sodium [Diclofenac Sodium Er] 100 MG) PO SCH (10:05)
[2019-03-24] MEDS: ESCITALOPRAM OXALATE 10 MG TABLET PO SCH (10:06)
[2019-03-24] MEDS: PATIENT'S OWN MEDICATION (NON-FORMULARY) (Propylene Glycol/Peg 400/Pf [Systane 0.3-0.4% Ey OP SCH ×2 (10:06→21:31)
[2019-03-24] MEDS: PRENATAL VITAMINS W/ FOLIC ACID TABLET (FP) PO SCH (10:06)
[2019-03-24] MEDS: FERROUS SO4 325 MG TABLET (FP) PO SCH (10:06)
[2019-03-24] MEDS: FOLIC ACID 1 MG TABLET (FP) PO SCH (10:06)
[2019-03-24] MEDS: PANTOPRAZOLE 40 MG TABLET PO SCH (10:06)
[2019-03-24] MEDS: THIAMINE HCL 100 MG TABLET (FP) PO SCH (10:07)
[2019-03-24] MEDS: ACETAMINOPHEN 325 MG TABLET (FP) PO PRN ×2 (14:02→21:32)
[2019-03-24] MEDS: QUEtiapine FUMARATE 50 MG TABLET PO SCH (21:31)
[2019-03-25] MEDS: LEVOTHYROXINE NA 25 MCG TABLET (FP) PO SCH (06:17)
[2019-03-25] MEDS: PRENATAL VITAMINS W/ FOLIC ACID TABLET (FP) PO SCH (10:18)
[2019-03-25] MEDS: THIAMINE HCL 100 MG TABLET (FP) PO SCH (10:18)
[2019-03-25] MEDS: PATIENT'S OWN MEDICATION (NON-FORMULARY) (Diclofenac Sodium [Diclofenac Sodium Er] 100 MG) PO SCH (10:18)
[2019-03-25] MEDS: FOLIC ACID 1 MG TABLET (FP) PO SCH (10:18)
[2019-03-25] MEDS: PATIENT'S OWN MEDICATION (NON-FORMULARY) (Propylene Glycol/Peg 400/Pf [Systane 0.3-0.4% Ey OP SCH ×2 (10:19→21:17)
[2019-03-25] MEDS: ESCITALOPRAM OXALATE 10 MG TABLET PO SCH (10:19)
[2019-03-25] MEDS: FERROUS SO4 325 MG TABLET (FP) PO SCH (10:19)
[2019-03-25] MEDS: PANTOPRAZOLE 40 MG TABLET PO SCH (10:20)
[2019-03-25] MEDS: MELATONIN 5 MG TABLETS PO PRN (21:15)
[2019-03-25] MEDS: QUEtiapine FUMARATE 50 MG TABLET PO SCH (21:15)
[2019-03-25] MEDS: ACETAMINOPHEN 325 MG TABLET (FP) PO PRN (21:16)
[2019-03-26] MEDS: LEVOTHYROXINE NA 25 MCG TABLET (FP) PO SCH (06:20)
[2019-03-26] MEDS: AMMONIUM LACTATE 12% LOTION 225 GM BOTTLE TP PRN (10:15)
[2019-03-26] MEDS: PATIENT'S OWN MEDICATION (NON-FORMULARY) (Diclofenac Sodium [Diclofenac Sodium Er] 100 MG) PO SCH (10:15)
[2019-03-26] MEDS: PATIENT'S OWN MEDICATION (NON-FORMULARY) (Propylene Glycol/Peg 400/Pf [Systane 0.3-0.4% Ey OP SCH ×2 (10:15→21:27)
[2019-03-26] MEDS: PRENATAL VITAMINS W/ FOLIC ACID TABLET (FP) PO SCH (10:16)
[2019-03-26] MEDS: THIAMINE HCL 100 MG TABLET (FP) PO SCH (10:16)
[2019-03-26] MEDS: FOLIC ACID 1 MG TABLET (FP) PO SCH (10:16)
[2019-03-26] MEDS: FERROUS SO4 325 MG TABLET (FP) PO SCH (10:16)
[2019-03-26] MEDS: PANTOPRAZOLE 40 MG TABLET PO SCH (10:16)
[2019-03-26] MEDS: ESCITALOPRAM OXALATE 10 MG TABLET PO SCH (10:16)
[2019-03-26] MEDS: ACETAMINOPHEN 325 MG TABLET (FP) PO PRN (21:26)
[2019-03-26] MEDS: QUEtiapine FUMARATE 50 MG TABLET PO SCH (21:27)
[2019-03-27] MEDS: LEVOTHYROXINE NA 25 MCG TABLET (FP) PO SCH (06:11)
[2019-03-27] MEDS ORDERED: ONDANSETRON *ODT* 4 MG TABLET SL ONE (07:30)
--- NOTE | 2019-03-27 07:33 | PN ---
[facility] Progress Note Note: Patient complains of nausea. Denies vomiting at this time Vital Signs Temperature 98.2 F 03/27/19 06:50 Pulse Rate 92 H 03/27/19 06:50 Respiratory Rate 16 03/27/19 06:50 Blood Pressure 135/84 03/27/19 06:50 O2 Sat by Pulse Oximetry (%) Action: Ondansetron [zofran ODT] 4mg SL given
[2019-03-27] MEDS: ESCITALOPRAM OXALATE 10 MG TABLET PO SCH (09:20)
[2019-03-27] MEDS: PANTOPRAZOLE 40 MG TABLET PO SCH (09:20)
[2019-03-27] MEDS: PRENATAL VITAMINS W/ FOLIC ACID TABLET (FP) PO SCH (09:20)
[2019-03-27] MEDS: THIAMINE HCL 100 MG TABLET (FP) PO SCH (09:20)
[2019-03-27] MEDS: FERROUS SO4 325 MG TABLET (FP) PO SCH (09:20)
[2019-03-27] MEDS: FOLIC ACID 1 MG TABLET (FP) PO SCH (09:20)
[2019-03-27] MEDS: PATIENT'S OWN MEDICATION (NON-FORMULARY) (Diclofenac Sodium [Diclofenac Sodium Er] 100 MG) PO SCH (09:21)
[2019-03-27] MEDS: PATIENT'S OWN MEDICATION (NON-FORMULARY) (Propylene Glycol/Peg 400/Pf [Systane 0.3-0.4% Ey OP SCH ×2 (09:22→21:23)
[2019-03-27] MEDS: ACETAMINOPHEN 325 MG TABLET (FP) PO PRN ×2 (09:22→21:23)
[2019-03-27] MEDS: QUEtiapine FUMARATE 50 MG TABLET PO SCH (21:22)
[2019-03-27] MEDS: MELATONIN 5 MG TABLETS PO PRN (21:23)
[2019-03-28] MEDS: LEVOTHYROXINE NA 25 MCG TABLET (FP) PO SCH (06:21)
[2019-03-28] MEDS: PATIENT'S OWN MEDICATION (NON-FORMULARY) (Diclofenac Sodium [Diclofenac Sodium Er] 100 MG) PO SCH (10:11)
[2019-03-28] MEDS: ESCITALOPRAM OXALATE 10 MG TABLET PO SCH (10:11)
[2019-03-28] MEDS: FERROUS SO4 325 MG TABLET (FP) PO SCH (10:11)
[2019-03-28] MEDS: PANTOPRAZOLE 40 MG TABLET PO SCH (10:11)
[2019-03-28] MEDS: PATIENT'S OWN MEDICATION (NON-FORMULARY) (Propylene Glycol/Peg 400/Pf [Systane 0.3-0.4% Ey OP SCH ×2 (10:11→21:22)
[2019-03-28] MEDS: THIAMINE HCL 100 MG TABLET (FP) PO SCH (10:12)
[2019-03-28] MEDS: PRENATAL VITAMINS W/ FOLIC ACID TABLET (FP) PO SCH (10:12)
[2019-03-28] MEDS: FOLIC ACID 1 MG TABLET (FP) PO SCH (10:12)
[2019-03-28] MEDS: QUEtiapine FUMARATE 50 MG TABLET PO SCH (21:21)
[2019-03-28] MEDS: MELATONIN 5 MG TABLETS PO PRN (21:22)
[2019-03-28] MEDS: ACETAMINOPHEN 325 MG TABLET (FP) PO PRN (21:23)
[2019-03-29] MEDS: LEVOTHYROXINE NA 25 MCG TABLET (FP) PO SCH (06:33)
[2019-03-29] MEDS: ACETAMINOPHEN 325 MG TABLET (FP) PO PRN ×2 (06:35→17:47)
[2019-03-29] MEDS: PATIENT'S OWN MEDICATION (NON-FORMULARY) (Propylene Glycol/Peg 400/Pf [Systane 0.3-0.4% Ey OP SCH (09:58)
[2019-03-29] MEDS: PATIENT'S OWN MEDICATION (NON-FORMULARY) (Diclofenac Sodium [Diclofenac Sodium Er] 100 MG) PO SCH (09:59)
[2019-03-29] MEDS: FOLIC ACID 1 MG TABLET (FP) PO SCH (09:59)
[2019-03-29] MEDS: FERROUS SO4 325 MG TABLET (FP) PO SCH (09:59)
[2019-03-29] MEDS: PRENATAL VITAMINS W/ FOLIC ACID TABLET (FP) PO SCH (10:00)
[2019-03-29] MEDS: ESCITALOPRAM OXALATE 10 MG TABLET PO SCH (10:00)
[2019-03-29] MEDS: PANTOPRAZOLE 40 MG TABLET PO SCH (10:00)
[2019-03-29] MEDS: THIAMINE HCL 100 MG TABLET (FP) PO SCH (10:00)
--- NOTE | 2019-03-29 13:03 | PN ---
S Progress Note Note: Pt c/o swelling and discomfort on right side of abdomen from previous anticoagulant injection on 03/08/19 while at [facility] on [facility]. reports she noticed it at home about 4 days after release from the hospital. Reports she was hospitalized for 4-5 days in February due to psych/ detox. reports she relapsed a day after leaving [facility] and then "I came here. I came on my own". Vital Signs - 24 hr 03/29/19 03/29/19 03/29/19 00:37 03:33 06:31 Temperature 98.3 F Pulse Rate 99 H Respiratory 18 18 18 Rate Blood Pressure 137/83 Alert o x 3 nad oob ambulating with steady gait Abdomen:Soft,+bs,nd,++fatty, two movable firm lumps in fatty tissue on right lower abdomen. Slight discomfort on palpation; skin free of echymosis on claimed injection sites. A/P Abdominal Lumps on inj sites(pt identification of sites) Maintain safety Monitor sx and report to staff if worsening follow up with PCP after rehab treatment.
[2019-03-29] MEDS: QUEtiapine FUMARATE 50 MG TABLET PO SCH (21:12)
[2019-03-29] MEDS: MELATONIN 5 MG TABLETS PO PRN (21:12)
[2019-03-29] MEDS: ARTIFICIAL TEARS (POLYVINYL ALCOHOL) OPTH DROPS OU SCH (22:57)
[2019-03-30] MEDS: LEVOTHYROXINE NA 25 MCG TABLET (FP) PO SCH (06:35)
[2019-03-30] MEDS: PATIENT'S OWN MEDICATION (NON-FORMULARY) (Diclofenac Sodium [Diclofenac Sodium Er] 100 MG) PO SCH (10:22)
[2019-03-30] MEDS: ESCITALOPRAM OXALATE 10 MG TABLET PO SCH (10:23)
[2019-03-30] MEDS: PANTOPRAZOLE 40 MG TABLET PO SCH (10:23)
[2019-03-30] MEDS: PRENATAL VITAMINS W/ FOLIC ACID TABLET (FP) PO SCH (10:23)
[2019-03-30] MEDS: FOLIC ACID 1 MG TABLET (FP) PO SCH (10:23)
[2019-03-30] MEDS: FERROUS SO4 325 MG TABLET (FP) PO SCH (10:23)
[2019-03-30] MEDS: THIAMINE HCL 100 MG TABLET (FP) PO SCH (10:23)
[2019-03-30] MEDS: ARTIFICIAL TEARS (POLYVINYL ALCOHOL) OPTH DROPS OU SCH ×2 (10:24→21:27)
[2019-03-30] MEDS: ACETAMINOPHEN 325 MG TABLET (FP) PO PRN (10:24)
[2019-03-30] MEDS: QUEtiapine FUMARATE 50 MG TABLET PO SCH (21:25)
[2019-03-30] MEDS: hydrOXYzine PAMOATE 50 MG CAPSULE (FP) PO PRN (21:25)
[2019-03-30] MEDS ORDERED: PT OWN MED DRAWER 7, Y5N ONE (21:27)
[2019-03-31] MEDS: LEVOTHYROXINE NA 25 MCG TABLET (FP) PO SCH (06:42)
[2019-03-31] MEDS: ESCITALOPRAM OXALATE 10 MG TABLET PO SCH (09:57)
[2019-03-31] MEDS: FOLIC ACID 1 MG TABLET (FP) PO SCH (09:57)
[2019-03-31] MEDS: PANTOPRAZOLE 40 MG TABLET PO SCH (09:57)
[2019-03-31] MEDS: FERROUS SO4 325 MG TABLET (FP) PO SCH (09:57)
[2019-03-31] MEDS: PRENATAL VITAMINS W/ FOLIC ACID TABLET (FP) PO SCH (09:57)
[2019-03-31] MEDS: PATIENT'S OWN MEDICATION (NON-FORMULARY) (Diclofenac Sodium [Diclofenac Sodium Er] 100 MG) PO SCH (09:57)
[2019-03-31] MEDS: hydrOXYzine PAMOATE 50 MG CAPSULE (FP) PO PRN ×3 (09:58→21:29)
[2019-03-31] MEDS: THIAMINE HCL 100 MG TABLET (FP) PO SCH (09:58)
[2019-03-31] MEDS: ARTIFICIAL TEARS (POLYVINYL ALCOHOL) OPTH DROPS OU SCH ×2 (10:30→21:27)
--- NOTE | 2019-03-31 10:51 | PN ---
[facility] Progress Note Note: T/C from nurse Jennifer Hinojosa reporting patient with nosebleed. This manual writer saw pt who stated that she felt a drip on her left nostril while she was at the medication window. Pt reports she has had episode of nosebleed in the past but "it was not as much as this one". Pt denies any discomfort before or after episode. Vital Signs - 24 hr 03/30/19 03/31/19 03/31/19 21:33 00:30 03:30 Temperature Pulse Rate 83 Respiratory 17 17 Rate Blood Pressure 103/69 03/31/19 03/31/19 03/31/19 06:37 10:00 10:32 Temperature 98.1 F 97.9 F Pulse Rate 78 75 Respiratory 18 20 Rate Blood Pressure 147/87 128/85 Pt sitting in chair upright with ice bag over nose Alert o x 3 nad oob ambulates with steady gait Heent:normocephalic,eomi,alexandro,L naris with small hanging blood clot which was removed on arrival by provider. Inside Left naris is clear of clot and no active bleeding but with some mucosal redness, no swelling. Right naris is clean , no bleeding, redness or swelling noted. A/P Nosebleed, unknown cause Maintain safety Pinch nose and apply cold compress while sitting upright and forward position as directed. Report to nurse for future episodes. Repeat process above as needed. Saline Nasal spray as directed.
[2019-03-31] MEDS: SODIUM CHLORIDE NASAL SPRAY 44 ML BOTTLE NS SCH ×2 (14:24→21:27)
[2019-03-31 14:45] LABS: HEMATOCRIT 32.3 % (32.4-45.2); HEMOGLOBIN 10.2 GM/dL (10.7-15.3); MCH 31.3 pg (25.7-33.7); MCHC 31.6 g/dl (32.0-36.0); MEAN CELL VOLUME 99.2 fl (80-96); MEAN PLT VOLUME 8.7 fl (7.5-11.1); PLATELET COUNT 357 K/MM3 (134-434); RBC 3.26 M/mm3 (3.60-5.2); RDW 23.1 % (11.6-15.6); WHITE BLOOD COUNT 7.2 K/mm3 (4.0-10.0)
[2019-03-31 14:55] LABS: ALBUMIN 2.8 g/dl (3.4-5.0); BILIRUBIN,TOTAL 0.6 mg/dL (0.2-1); BLOOD UREA NITROGEN 6.5 mg/dL (7-18); CALCIUM 8.9 mg/dL (8.5-10.1); CREATININE 0.6 mg/dL (0.55-1.3); POTASSIUM 4.2 mmol/L (3.5-5.1); TOT PROT 6.6 g/dl (6.4-8.2)
[2019-03-31] MEDS ORDERED: PT OWN MED DRAWER 7, Y5N ONE (19:48)
[2019-03-31] MEDS: QUEtiapine FUMARATE 50 MG TABLET PO SCH (21:27)
[2019-03-31] MEDS: MELATONIN 5 MG TABLETS PO PRN (21:28)
[2019-04-01] MEDS ORDERED: PT OWN MED DRAWER 7, Y5N ONE ×2 (06:22→20:13)
[2019-04-01] MEDS: LEVOTHYROXINE NA 25 MCG TABLET (FP) PO SCH (06:39)
[2019-04-01] MEDS: SODIUM CHLORIDE NASAL SPRAY 44 ML BOTTLE NS SCH ×3 (06:40→21:40)
[2019-04-01] MEDS: ARTIFICIAL TEARS (POLYVINYL ALCOHOL) OPTH DROPS OU SCH ×2 (10:03→21:40)
[2019-04-01] MEDS: PATIENT'S OWN MEDICATION (NON-FORMULARY) (Diclofenac Sodium [Diclofenac Sodium Er] 100 MG) PO SCH (10:03)
[2019-04-01] MEDS: FERROUS SO4 325 MG TABLET (FP) PO SCH (10:03)
[2019-04-01] MEDS: THIAMINE HCL 100 MG TABLET (FP) PO SCH (10:05)
[2019-04-01] MEDS: ESCITALOPRAM OXALATE 10 MG TABLET PO SCH (10:05)
[2019-04-01] MEDS: PANTOPRAZOLE 40 MG TABLET PO SCH (10:05)
[2019-04-01] MEDS: PRENATAL VITAMINS W/ FOLIC ACID TABLET (FP) PO SCH (10:05)
[2019-04-01] MEDS: FOLIC ACID 1 MG TABLET (FP) PO SCH (10:05)
[2019-04-01] MEDS: hydrOXYzine PAMOATE 50 MG CAPSULE (FP) PO PRN ×3 (10:06→21:40)
[2019-04-01] MEDS: MELATONIN 5 MG TABLETS PO PRN (21:41)
[2019-04-01] MEDS: AMMONIUM LACTATE 12% LOTION 225 GM BOTTLE TP PRN (21:41)
[2019-04-01] MEDS: QUEtiapine FUMARATE 50 MG TABLET PO SCH (21:41)
[2019-04-02] MEDS: SODIUM CHLORIDE NASAL SPRAY 44 ML BOTTLE NS SCH ×3 (06:31→21:22)
[2019-04-02] MEDS: LEVOTHYROXINE NA 25 MCG TABLET (FP) PO SCH (06:31)
[2019-04-02] MEDS: ACETAMINOPHEN 325 MG TABLET (FP) PO PRN ×2 (06:32→21:22)
[2019-04-02] MEDS: FERROUS SO4 325 MG TABLET (FP) PO SCH (10:02)
[2019-04-02] MEDS: FOLIC ACID 1 MG TABLET (FP) PO SCH (10:02)
[2019-04-02] MEDS: ARTIFICIAL TEARS (POLYVINYL ALCOHOL) OPTH DROPS OU SCH ×2 (10:02→21:22)
[2019-04-02] MEDS: THIAMINE HCL 100 MG TABLET (FP) PO SCH (10:02)
[2019-04-02] MEDS: ESCITALOPRAM OXALATE 10 MG TABLET PO SCH (10:02)
[2019-04-02] MEDS: PATIENT'S OWN MEDICATION (NON-FORMULARY) (Diclofenac Sodium [Diclofenac Sodium Er] 100 MG) PO SCH (10:02)
[2019-04-02] MEDS: PANTOPRAZOLE 40 MG TABLET PO SCH (10:02)
[2019-04-02] MEDS: hydrOXYzine PAMOATE 50 MG CAPSULE (FP) PO PRN ×3 (10:03→21:22)
[2019-04-02] MEDS: PRENATAL VITAMINS W/ FOLIC ACID TABLET (FP) PO SCH (10:03)
[2019-04-02] MEDS ORDERED: PT OWN MED DRAWER 7, Y5N ONE (13:36)
[2019-04-02] MEDS: MELATONIN 5 MG TABLETS PO PRN (21:22)
[2019-04-02] MEDS: QUEtiapine FUMARATE 50 MG TABLET PO SCH (21:22)
[2019-04-03] MEDS: LEVOTHYROXINE NA 25 MCG TABLET (FP) PO SCH (06:41)
[2019-04-03] MEDS: SODIUM CHLORIDE NASAL SPRAY 44 ML BOTTLE NS SCH ×3 (06:41→21:15)
[2019-04-03] MEDS: PATIENT'S OWN MEDICATION (NON-FORMULARY) (Diclofenac Sodium [Diclofenac Sodium Er] 100 MG) PO SCH (10:05)
[2019-04-03] MEDS: THIAMINE HCL 100 MG TABLET (FP) PO SCH (10:06)
[2019-04-03] MEDS: PANTOPRAZOLE 40 MG TABLET PO SCH (10:06)
[2019-04-03] MEDS: PRENATAL VITAMINS W/ FOLIC ACID TABLET (FP) PO SCH (10:06)
[2019-04-03] MEDS: FOLIC ACID 1 MG TABLET (FP) PO SCH (10:06)
[2019-04-03] MEDS: ESCITALOPRAM OXALATE 10 MG TABLET PO SCH (10:06)
[2019-04-03] MEDS: ARTIFICIAL TEARS (POLYVINYL ALCOHOL) OPTH DROPS OU SCH ×2 (10:06→21:15)
[2019-04-03] MEDS: FERROUS SO4 325 MG TABLET (FP) PO SCH (10:06)
[2019-04-03] MEDS: hydrOXYzine PAMOATE 50 MG CAPSULE (FP) PO PRN ×3 (10:07→21:13)
[2019-04-03] MEDS ORDERED: PT OWN MED DRAWER 7, Y5N ONE ×3 (14:15→20:11)
[2019-04-03] MEDS: ACETAMINOPHEN 325 MG TABLET (FP) PO PRN ×2 (14:16→21:14)
[2019-04-03] MEDS: QUEtiapine FUMARATE 50 MG TABLET PO SCH (21:11)
[2019-04-03] MEDS: MELATONIN 5 MG TABLETS PO PRN (21:12)
[2019-04-04] MEDS: SODIUM CHLORIDE NASAL SPRAY 44 ML BOTTLE NS SCH ×3 (06:32→21:27)
[2019-04-04] MEDS: LEVOTHYROXINE NA 25 MCG TABLET (FP) PO SCH (06:32)
[2019-04-04] MEDS: hydrOXYzine PAMOATE 50 MG CAPSULE (FP) PO PRN ×3 (06:40→21:25)
[2019-04-04] MEDS: ARTIFICIAL TEARS (POLYVINYL ALCOHOL) OPTH DROPS OU SCH ×2 (10:18→21:27)
[2019-04-04] MEDS: PRENATAL VITAMINS W/ FOLIC ACID TABLET (FP) PO SCH (10:19)
[2019-04-04] MEDS: THIAMINE HCL 100 MG TABLET (FP) PO SCH (10:19)
[2019-04-04] MEDS: PANTOPRAZOLE 40 MG TABLET PO SCH (10:19)
[2019-04-04] MEDS: PATIENT'S OWN MEDICATION (NON-FORMULARY) (Diclofenac Sodium [Diclofenac Sodium Er] 100 MG) PO SCH (10:19)
[2019-04-04] MEDS: FOLIC ACID 1 MG TABLET (FP) PO SCH (10:19)
[2019-04-04] MEDS: FERROUS SO4 325 MG TABLET (FP) PO SCH (10:20)
[2019-04-04] MEDS: ESCITALOPRAM OXALATE 10 MG TABLET PO SCH (10:20)
[2019-04-04] MEDS: QUEtiapine FUMARATE 50 MG TABLET PO SCH (21:24)
[2019-04-04] MEDS: ACETAMINOPHEN 325 MG TABLET (FP) PO PRN (21:25)
[2019-04-04] MEDS: MELATONIN 5 MG TABLETS PO PRN (21:25)
[2019-04-05] MEDS: LEVOTHYROXINE NA 25 MCG TABLET (FP) PO SCH (06:32)
[2019-04-05] MEDS: SODIUM CHLORIDE NASAL SPRAY 44 ML BOTTLE NS SCH ×3 (06:33→21:10)
[2019-04-05] MEDS: ACETAMINOPHEN 325 MG TABLET (FP) PO PRN ×2 (06:34→21:11)
--- NOTE | 2019-04-05 10:11 | PREP.REFER ---
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
[2019-04-05] MEDS: ARTIFICIAL TEARS (POLYVINYL ALCOHOL) OPTH DROPS OU SCH ×2 (10:15→21:10)
[2019-04-05] MEDS: ESCITALOPRAM OXALATE 10 MG TABLET PO SCH (10:16)
[2019-04-05] MEDS: FERROUS SO4 325 MG TABLET (FP) PO SCH (10:16)
[2019-04-05] MEDS: THIAMINE HCL 100 MG TABLET (FP) PO SCH (10:16)
[2019-04-05] MEDS: PATIENT'S OWN MEDICATION (NON-FORMULARY) (Diclofenac Sodium [Diclofenac Sodium Er] 100 MG) PO SCH (10:16)
[2019-04-05] MEDS: PANTOPRAZOLE 40 MG TABLET PO SCH (10:17)
[2019-04-05] MEDS: PRENATAL VITAMINS W/ FOLIC ACID TABLET (FP) PO SCH (10:17)
[2019-04-05] MEDS: hydrOXYzine PAMOATE 50 MG CAPSULE (FP) PO PRN ×2 (10:17→21:11)
[2019-04-05] MEDS: FOLIC ACID 1 MG TABLET (FP) PO SCH (10:17)
[2019-04-05] MEDS ORDERED: cloNIDine HCL 0.1 MG TABLET PO PRN (10:18)
--- NOTE | 2019-04-05 10:18 | PN ---
[facility] Progress Note (SOAP) Subjective: patient with variable BP. The elevated BP reading yesterday occurred as the patient was watching TV and coloring. She states she did not feel stressed, but relaxed at that time. She experienced a headache with the BP reading this AM and states that is when she usually knows her BP is elevated. Reports that elevated BP happens to her occasionally at her PCP appointments, but it usually returns to normal at the end of the visit. She also reports that she has gone to the ER for headaches r/t BP, but has not been treated for HTN in the ER. Review of her BP since her admission to rehab indicates it was WNL early in the stay, but she has been having more frequent incidents of elevated BP. Objective: 04/05/19 10:17 Vital Signs (72 hours) 04/03/19 04/03/19 04/03/19 00:38 03:33 06:30 Temperature 98.4 F Pulse Rate 81 Respiratory 18 18 16 Rate Blood Pressure 130/82 04/04/19 04/04/19 04/04/19 00:43 03:36 06:28 Temperature 98.5 F Pulse Rate 76 Respiratory 18 18 18 Rate Blood Pressure 142/91 04/04/19 04/05/19 04/05/19 21:21 06:29 07:16 Temperature 98.4 F Pulse Rate 84 69 80 Respiratory 18 18 Rate Blood Pressure 152/88 148/92 130/87 P/E: General: no apparent distress HEENTM: PERRLA Lungs: clear Heart: s1 s2 Neuro: CN 2-12 intact Assessment: Incident of elevated BP 04/05/19 10:18 Plan: Clonidine as needed for SBP> 160, DBP>96
[2019-04-05] MEDS ORDERED: PT OWN MED DRAWER 7, Y5N ONE ×2 (12:46→19:19)
[2019-04-05] MEDS: QUEtiapine FUMARATE 50 MG TABLET PO SCH (21:09)
[2019-04-05] MEDS: MELATONIN 5 MG TABLETS PO PRN (21:10)
[2019-04-06] MEDS: LEVOTHYROXINE NA 25 MCG TABLET (FP) PO SCH (06:37)
[2019-04-06] MEDS: SODIUM CHLORIDE NASAL SPRAY 44 ML BOTTLE NS SCH ×3 (06:37→21:14)
[2019-04-06] MEDS: PATIENT'S OWN MEDICATION (NON-FORMULARY) (Diclofenac Sodium [Diclofenac Sodium Er] 100 MG) PO SCH (10:00)
[2019-04-06] MEDS: ESCITALOPRAM OXALATE 10 MG TABLET PO SCH (10:01)
[2019-04-06] MEDS: PRENATAL VITAMINS W/ FOLIC ACID TABLET (FP) PO SCH (10:01)
[2019-04-06] MEDS: FERROUS SO4 325 MG TABLET (FP) PO SCH (10:01)
[2019-04-06] MEDS: FOLIC ACID 1 MG TABLET (FP) PO SCH (10:01)
[2019-04-06] MEDS: PANTOPRAZOLE 40 MG TABLET PO SCH (10:01)
[2019-04-06] MEDS: THIAMINE HCL 100 MG TABLET (FP) PO SCH (10:01)
[2019-04-06] MEDS: hydrOXYzine PAMOATE 50 MG CAPSULE (FP) PO PRN ×2 (10:02→21:16)
[2019-04-06] MEDS: ARTIFICIAL TEARS (POLYVINYL ALCOHOL) OPTH DROPS OU SCH ×2 (10:02→21:14)
[2019-04-06] MEDS ORDERED: PT OWN MED DRAWER 7, Y5N ONE (13:30)
[2019-04-06] MEDS: ACETAMINOPHEN 325 MG TABLET (FP) PO PRN (21:14)
[2019-04-06] MEDS: QUEtiapine FUMARATE 50 MG TABLET PO SCH (21:14)
[2019-04-06] MEDS: MELATONIN 5 MG TABLETS PO PRN (21:14)
[2019-04-07] MEDS: LEVOTHYROXINE NA 25 MCG TABLET (FP) PO SCH (06:21)
[2019-04-07] MEDS: SODIUM CHLORIDE NASAL SPRAY 44 ML BOTTLE NS SCH (06:22)
[2019-04-07] MEDS: PANTOPRAZOLE 40 MG TABLET PO SCH (10:15)
[2019-04-07] MEDS: ARTIFICIAL TEARS (POLYVINYL ALCOHOL) OPTH DROPS OU SCH ×2 (10:15→21:18)
[2019-04-07] MEDS: ESCITALOPRAM OXALATE 10 MG TABLET PO SCH (10:15)
[2019-04-07] MEDS: PATIENT'S OWN MEDICATION (NON-FORMULARY) (Diclofenac Sodium [Diclofenac Sodium Er] 100 MG) PO SCH (10:15)
[2019-04-07] MEDS: THIAMINE HCL 100 MG TABLET (FP) PO SCH (10:16)
[2019-04-07] MEDS: FOLIC ACID 1 MG TABLET (FP) PO SCH (10:16)
[2019-04-07] MEDS: PRENATAL VITAMINS W/ FOLIC ACID TABLET (FP) PO SCH (10:16)
[2019-04-07] MEDS: FERROUS SO4 325 MG TABLET (FP) PO SCH (10:16)
[2019-04-07] MEDS: hydrOXYzine PAMOATE 50 MG CAPSULE (FP) PO PRN ×2 (10:17→21:21)
[2019-04-07] MEDS: QUEtiapine FUMARATE 50 MG TABLET PO SCH (21:18)
[2019-04-07] MEDS: ACETAMINOPHEN 325 MG TABLET (FP) PO PRN (21:21)
[2019-04-07] MEDS: MELATONIN 5 MG TABLETS PO PRN (21:21)
[2019-04-08] MEDS: LEVOTHYROXINE NA 25 MCG TABLET (FP) PO SCH (06:44)
[2019-04-08] MEDS ORDERED: PT OWN MED DRAWER 7, Y5N ONE (09:20)
[2019-04-08] MEDS: ARTIFICIAL TEARS (POLYVINYL ALCOHOL) OPTH DROPS OU SCH ×2 (10:26→21:28)
[2019-04-08] MEDS: FERROUS SO4 325 MG TABLET (FP) PO SCH (10:27)
[2019-04-08] MEDS: PATIENT'S OWN MEDICATION (NON-FORMULARY) (Diclofenac Sodium [Diclofenac Sodium Er] 100 MG) PO SCH (10:27)
[2019-04-08] MEDS: ESCITALOPRAM OXALATE 10 MG TABLET PO SCH (10:27)
[2019-04-08] MEDS: PANTOPRAZOLE 40 MG TABLET PO SCH (10:27)
[2019-04-08] MEDS: THIAMINE HCL 100 MG TABLET (FP) PO SCH (10:27)
[2019-04-08] MEDS: PRENATAL VITAMINS W/ FOLIC ACID TABLET (FP) PO SCH (10:27)
[2019-04-08] MEDS: hydrOXYzine PAMOATE 50 MG CAPSULE (FP) PO PRN ×2 (10:27→21:28)
[2019-04-08] MEDS: FOLIC ACID 1 MG TABLET (FP) PO SCH (10:27)
[2019-04-08] MEDS: QUEtiapine FUMARATE 50 MG TABLET PO SCH (21:28)
[2019-04-08] MEDS: SODIUM CHLORIDE NASAL SPRAY 44 ML BOTTLE NS PRN (21:28)
[2019-04-08] MEDS: ACETAMINOPHEN 325 MG TABLET (FP) PO PRN (21:28)
[2019-04-08] MEDS: MELATONIN 5 MG TABLETS PO PRN (21:29)
[2019-04-09] MEDS: LEVOTHYROXINE NA 25 MCG TABLET (FP) PO SCH (06:34)
[2019-04-09] MEDS: ARTIFICIAL TEARS (POLYVINYL ALCOHOL) OPTH DROPS OU SCH ×2 (10:25→21:13)
[2019-04-09] MEDS: PRENATAL VITAMINS W/ FOLIC ACID TABLET (FP) PO SCH (10:26)
[2019-04-09] MEDS: ESCITALOPRAM OXALATE 10 MG TABLET PO SCH (10:26)
[2019-04-09] MEDS: THIAMINE HCL 100 MG TABLET (FP) PO SCH (10:26)
[2019-04-09] MEDS: SODIUM CHLORIDE NASAL SPRAY 44 ML BOTTLE NS PRN (10:26)
[2019-04-09] MEDS: PATIENT'S OWN MEDICATION (NON-FORMULARY) (Diclofenac Sodium [Diclofenac Sodium Er] 100 MG) PO SCH (10:26)
[2019-04-09] MEDS: FOLIC ACID 1 MG TABLET (FP) PO SCH (10:26)
[2019-04-09] MEDS: FERROUS SO4 325 MG TABLET (FP) PO SCH (10:26)
[2019-04-09] MEDS: PANTOPRAZOLE 40 MG TABLET PO SCH (10:27)
[2019-04-09] MEDS: hydrOXYzine PAMOATE 50 MG CAPSULE (FP) PO PRN ×3 (10:28→21:11)
[2019-04-09] MEDS ORDERED: PT OWN MED DRAWER 7, Y5N ONE (20:25)
[2019-04-09] MEDS: MELATONIN 5 MG TABLETS PO PRN (21:10)
[2019-04-09] MEDS: QUEtiapine FUMARATE 50 MG TABLET PO SCH (21:10)
[2019-04-09] MEDS: ACETAMINOPHEN 325 MG TABLET (FP) PO PRN (21:11)
[2019-04-10] MEDS: hydrOXYzine PAMOATE 50 MG CAPSULE (FP) PO PRN ×3 (06:34→21:39)
[2019-04-10] MEDS: LEVOTHYROXINE NA 25 MCG TABLET (FP) PO SCH (06:34)
[2019-04-10] MEDS: ARTIFICIAL TEARS (POLYVINYL ALCOHOL) OPTH DROPS OU SCH ×2 (10:17→21:41)
[2019-04-10] MEDS: SODIUM CHLORIDE NASAL SPRAY 44 ML BOTTLE NS PRN (10:17)
[2019-04-10] MEDS: FERROUS SO4 325 MG TABLET (FP) PO SCH (10:18)
[2019-04-10] MEDS: FOLIC ACID 1 MG TABLET (FP) PO SCH (10:18)
[2019-04-10] MEDS: PRENATAL VITAMINS W/ FOLIC ACID TABLET (FP) PO SCH (10:18)
[2019-04-10] MEDS: THIAMINE HCL 100 MG TABLET (FP) PO SCH (10:18)
[2019-04-10] MEDS: PANTOPRAZOLE 40 MG TABLET PO SCH (10:18)
[2019-04-10] MEDS: ESCITALOPRAM OXALATE 10 MG TABLET PO SCH (10:18)
[2019-04-10] MEDS ORDERED: PT OWN MED DRAWER 7, Y5N ONE ×2 (10:21→11:08)
[2019-04-10] MEDS: ACETAMINOPHEN 325 MG TABLET (FP) PO PRN ×2 (10:22→21:39)
[2019-04-10] MEDS: DICLOFENAC SODIUM 25 MG TABLET.DR PO SCH (13:24)
[2019-04-10] MEDS: PATIENT'S OWN MEDICATION (NON-FORMULARY) (Diclofenac Sodium [Diclofenac Sodium Er] 100 MG) PO SCH (13:24)
[2019-04-10] MEDS: QUEtiapine FUMARATE 50 MG TABLET PO SCH (21:39)
[2019-04-11] MEDS: LEVOTHYROXINE NA 25 MCG TABLET (FP) PO SCH (06:36)
[2019-04-11] MEDS: hydrOXYzine PAMOATE 50 MG CAPSULE (FP) PO PRN ×3 (06:37→21:12)
[2019-04-11] MEDS: ARTIFICIAL TEARS (POLYVINYL ALCOHOL) OPTH DROPS OU SCH ×2 (10:25→21:10)
[2019-04-11] MEDS: THIAMINE HCL 100 MG TABLET (FP) PO SCH (10:26)
[2019-04-11] MEDS: FOLIC ACID 1 MG TABLET (FP) PO SCH (10:26)
[2019-04-11] MEDS: DICLOFENAC SODIUM 25 MG TABLET.DR PO SCH (10:26)
[2019-04-11] MEDS: PANTOPRAZOLE 40 MG TABLET PO SCH (10:26)
[2019-04-11] MEDS: FERROUS SO4 325 MG TABLET (FP) PO SCH (10:26)
[2019-04-11] MEDS: ESCITALOPRAM OXALATE 10 MG TABLET PO SCH (10:26)
[2019-04-11] MEDS: PRENATAL VITAMINS W/ FOLIC ACID TABLET (FP) PO SCH (10:26)
[2019-04-11] MEDS: PATIENT'S OWN MEDICATION (NON-FORMULARY) (Diclofenac Sodium [Diclofenac Sodium Er] 100 MG) PO SCH (10:27)
[2019-04-11] MEDS: SODIUM CHLORIDE NASAL SPRAY 44 ML BOTTLE NS PRN (10:29)
[2019-04-11] MEDS ORDERED: PT OWN MED DRAWER 7, Y5N ONE ×2 (10:29→19:25)
[2019-04-11] MEDS: MELATONIN 5 MG TABLETS PO PRN (21:10)
[2019-04-11] MEDS: QUEtiapine FUMARATE 50 MG TABLET PO SCH (21:11)
[2019-04-11] MEDS: ACETAMINOPHEN 325 MG TABLET (FP) PO PRN (21:12)
[2019-04-12] MEDS: hydrOXYzine PAMOATE 50 MG CAPSULE (FP) PO PRN ×3 (06:37→21:17)
[2019-04-12] MEDS: LEVOTHYROXINE NA 25 MCG TABLET (FP) PO SCH (06:37)
[2019-04-12] MEDS: DICLOFENAC SODIUM 25 MG TABLET.DR PO SCH (10:11)
[2019-04-12] MEDS: ARTIFICIAL TEARS (POLYVINYL ALCOHOL) OPTH DROPS OU SCH ×2 (10:11→21:18)
[2019-04-12] MEDS: SODIUM CHLORIDE NASAL SPRAY 44 ML BOTTLE NS PRN (10:11)
[2019-04-12] MEDS: PRENATAL VITAMINS W/ FOLIC ACID TABLET (FP) PO SCH (10:11)
[2019-04-12] MEDS: PANTOPRAZOLE 40 MG TABLET PO SCH (10:12)
[2019-04-12] MEDS: ESCITALOPRAM OXALATE 10 MG TABLET PO SCH (10:12)
[2019-04-12] MEDS: FERROUS SO4 325 MG TABLET (FP) PO SCH (10:12)
[2019-04-12] MEDS: THIAMINE HCL 100 MG TABLET (FP) PO SCH (10:12)
[2019-04-12] MEDS: FOLIC ACID 1 MG TABLET (FP) PO SCH (10:12)
[2019-04-12] MEDS: AMMONIUM LACTATE 12% LOTION 225 GM BOTTLE TP PRN (10:35)
[2019-04-12] MEDS: ACETAMINOPHEN 325 MG TABLET (FP) PO PRN ×2 (14:10→21:16)
[2019-04-12] MEDS: QUEtiapine FUMARATE 50 MG TABLET PO SCH (21:16)
[2019-04-12] MEDS: MELATONIN 5 MG TABLETS PO PRN (21:17)
[2019-04-13] MEDS: hydrOXYzine PAMOATE 50 MG CAPSULE (FP) PO PRN ×3 (06:35→21:16)
[2019-04-13] MEDS: LEVOTHYROXINE NA 25 MCG TABLET (FP) PO SCH (06:35)
[2019-04-13] MEDS ORDERED: PT OWN MED DRAWER 7, Y5N ONE (08:20)
[2019-04-13] MEDS: ARTIFICIAL TEARS (POLYVINYL ALCOHOL) OPTH DROPS OU SCH ×2 (10:27→21:54)
[2019-04-13] MEDS: ESCITALOPRAM OXALATE 10 MG TABLET PO SCH (10:28)
[2019-04-13] MEDS: FERROUS SO4 325 MG TABLET (FP) PO SCH (10:28)
[2019-04-13] MEDS: FOLIC ACID 1 MG TABLET (FP) PO SCH (10:28)
[2019-04-13] MEDS: PANTOPRAZOLE 40 MG TABLET PO SCH (10:28)
[2019-04-13] MEDS: THIAMINE HCL 100 MG TABLET (FP) PO SCH (10:28)
[2019-04-13] MEDS: PRENATAL VITAMINS W/ FOLIC ACID TABLET (FP) PO SCH (10:28)
[2019-04-13] MEDS: DICLOFENAC SODIUM 25 MG TABLET.DR PO SCH (10:29)
[2019-04-13] MEDS: ACETAMINOPHEN 325 MG TABLET (FP) PO PRN ×2 (10:31→21:18)
--- NOTE | 2019-04-13 11:42 | CONSULT ---
[facility] Psychiatric Consult - Data Date of interview: 04/13/19 Admission source: [facility] detox unit Identifying data: Ms Desir is a 49 years old maried female, mother of 3 children, unemployed with no source of income, living with family referred from [facility] on 03/20/19 for inpatient rehabilitation treatment for alcohol and cocaine Substance Abuse History: Reports history of alcohol and cocaine use. Refer to addiction counselor's summary for further information Medical History: Significant for anemia, bronchial asthma, GERD, hypothyroidism , chronic low back pain/sciatica, history of gastric bypass surgery on 2012, c- section x3 and tubal ligation. Psychiatric History: Patient is a poor, non informative historian. Reports that she was recently admitted to [facility] ED because she was feeling depressed, anxious in the context of alcohol intoxication. She said that she was diagnosed with Bipolar Disorder, started on Lexapro 10 mg/day and was admitted to inpatient detox. While in detox, Seroquel 50 mg/hs was added. She was discharged on 03/20/19 and referred to this facility for inpatient rehab treatment. While admitted to rehab both medications were continued by Dr Martinez. Reports 2 previous suicidal atempts by taking Tylenol overdose due to personal issues. At present, denies experiencing psychotic, manic or depressive symptoms , S/H ideations. However, reports feeling anxious and sleeping poorly despite taking Seroquel 50 mg/hs. Requests increase in Seroquel dosage. Physical/Sexual Abuse/Trauma History: Denies history of abuse as a child or DV relationship as an adult Mental Status Exam - Mental Status Exam Alert and Oriented to: Time, Place, Person Cognitive Function: Fair Patient Appearance: Well Groomed Mood: Anxious Affect: Appropriate Patient Behavior: Cooperative Speech Pattern: Clear Voice Loudness: Normal Thought Process: Intact, Goal Oriented Hallucinations: Denies Suicidal Ideation: Denies Homicidal Ideation: Denies Appetite: Poor Muscle strength/Tone: Normal Gait/Station: Normal Psychiatric Findings - Problem List ([place] 1, 2,3) (1) Mood disorder Current Visit: Yes Status: Chronic (2) Bipolar disorder Current Visit: Yes Status: Ruled-out (3) Substance induced mood disorder Current Visit: Yes Status: Ruled-out (4) Substance-induced anxiety disorder Current Visit: Yes Status: Acute (5) Substance-induced sleep disorder Current Visit: Yes Status: Acute (6) Alcohol dependence Current Visit: Yes Status: Acute (7) Cocaine abuse Current Visit: Yes Status: Acute (8) Asthma Current Visit: Yes Status: Chronic (9) GERD (gastroesophageal reflux disease) Current Visit: Yes Status: Chronic (10) Hypothyroidism Current Visit: Yes Status: Acute (11) Obesity Current Visit: Yes Status: Chronic - Initial Treatment Plan Initial Treatment Plan: 1) Continue Lexapro 10 mg po daily. 2) Discontinue Seroquel 50 mg po HS. 3) Start Seroquel 100 mg po HS. 4) Continue inpatient rehabilitation
[2019-04-13] MEDS: MELATONIN 5 MG TABLETS PO PRN (21:18)
[2019-04-13] MEDS: QUEtiapine FUMARATE 100 MG TABLET (FP) PO SCH (21:19)
[2019-04-14] MEDS: LEVOTHYROXINE NA 25 MCG TABLET (FP) PO SCH (06:34)
[2019-04-14] MEDS: hydrOXYzine PAMOATE 50 MG CAPSULE (FP) PO PRN ×3 (06:35→21:16)
[2019-04-14] MEDS: SODIUM CHLORIDE NASAL SPRAY 44 ML BOTTLE NS PRN (10:07)
[2019-04-14] MEDS: ARTIFICIAL TEARS (POLYVINYL ALCOHOL) OPTH DROPS OU SCH ×2 (10:07→21:17)
[2019-04-14] MEDS: THIAMINE HCL 100 MG TABLET (FP) PO SCH (10:08)
[2019-04-14] MEDS: PRENATAL VITAMINS W/ FOLIC ACID TABLET (FP) PO SCH (10:08)
[2019-04-14] MEDS: FERROUS SO4 325 MG TABLET (FP) PO SCH (10:08)
[2019-04-14] MEDS: PANTOPRAZOLE 40 MG TABLET PO SCH (10:08)
[2019-04-14] MEDS: ESCITALOPRAM OXALATE 10 MG TABLET PO SCH (10:08)
[2019-04-14] MEDS: FOLIC ACID 1 MG TABLET (FP) PO SCH (10:08)
[2019-04-14] MEDS: DICLOFENAC SODIUM 25 MG TABLET.DR PO SCH (10:09)
[2019-04-14] MEDS: QUEtiapine FUMARATE 100 MG TABLET (FP) PO SCH (21:16)
[2019-04-14] MEDS: MELATONIN 5 MG TABLETS PO PRN (21:17)
[2019-04-14] MEDS: ACETAMINOPHEN 325 MG TABLET (FP) PO PRN (21:18)
[2019-04-15] MEDS: hydrOXYzine PAMOATE 50 MG CAPSULE (FP) PO PRN ×3 (06:48→21:07)
[2019-04-15] MEDS: LEVOTHYROXINE NA 25 MCG TABLET (FP) PO SCH (06:48)
[2019-04-15] MEDS: FERROUS SO4 325 MG TABLET (FP) PO SCH (10:28)
[2019-04-15] MEDS: ARTIFICIAL TEARS (POLYVINYL ALCOHOL) OPTH DROPS OU SCH ×2 (10:28→21:07)
[2019-04-15] MEDS: ESCITALOPRAM OXALATE 10 MG TABLET PO SCH (10:28)
[2019-04-15] MEDS: FOLIC ACID 1 MG TABLET (FP) PO SCH (10:28)
[2019-04-15] MEDS: PRENATAL VITAMINS W/ FOLIC ACID TABLET (FP) PO SCH (10:28)
[2019-04-15] MEDS: THIAMINE HCL 100 MG TABLET (FP) PO SCH (10:29)
[2019-04-15] MEDS: DICLOFENAC SODIUM 25 MG TABLET.DR PO SCH (10:29)
[2019-04-15] MEDS: PANTOPRAZOLE 40 MG TABLET PO SCH (10:29)
[2019-04-15] MEDS: ACETAMINOPHEN 325 MG TABLET (FP) PO PRN ×2 (10:30→21:07)
[2019-04-15] MEDS: QUEtiapine FUMARATE 100 MG TABLET (FP) PO SCH (21:07)
[2019-04-15] MEDS: MELATONIN 5 MG TABLETS PO PRN (21:08)
[2019-04-16] MEDS: LEVOTHYROXINE NA 25 MCG TABLET (FP) PO SCH (07:02)
[2019-04-16] MEDS: hydrOXYzine PAMOATE 50 MG CAPSULE (FP) PO PRN ×3 (07:02→18:30)
[2019-04-16] MEDS: SODIUM CHLORIDE NASAL SPRAY 44 ML BOTTLE NS PRN (08:24)
[2019-04-16] MEDS: FOLIC ACID 1 MG TABLET (FP) PO SCH (10:13)
[2019-04-16] MEDS: FERROUS SO4 325 MG TABLET (FP) PO SCH (10:13)
[2019-04-16] MEDS: ARTIFICIAL TEARS (POLYVINYL ALCOHOL) OPTH DROPS OU SCH ×2 (10:13→21:04)
[2019-04-16] MEDS: ESCITALOPRAM OXALATE 10 MG TABLET PO SCH (10:14)
[2019-04-16] MEDS: DICLOFENAC SODIUM 25 MG TABLET.DR PO SCH (10:14)
[2019-04-16] MEDS: PRENATAL VITAMINS W/ FOLIC ACID TABLET (FP) PO SCH (10:14)
[2019-04-16] MEDS: THIAMINE HCL 100 MG TABLET (FP) PO SCH (10:14)
[2019-04-16] MEDS: PANTOPRAZOLE 40 MG TABLET PO SCH (10:14)
--- NOTE | 2019-04-16 12:03 | PN ---
[facility] Progress Note Note: Patient is scheduled for discharge tomorrow. Scripts for 30 days supply of medications(Lexapro 10 mg/day, Seroquel 100 mg/hs) will be electronically transmitted to [facility] at [address] [place], [place] [id number]
[2019-04-16] MEDS ORDERED: PT OWN MED DRAWER 7, Y5N ONE (13:49)
[2019-04-16] MEDS: QUEtiapine FUMARATE 100 MG TABLET (FP) PO SCH (21:04)
[2019-04-16] MEDS: MELATONIN 5 MG TABLETS PO PRN (21:04)
[2019-04-16] MEDS: ACETAMINOPHEN 325 MG TABLET (FP) PO PRN (21:05)
[2019-04-17] MEDS: LEVOTHYROXINE NA 25 MCG TABLET (FP) PO SCH (06:28)
[2019-04-17] MEDS ORDERED: PT OWN MED DRAWER 7, Y5N ONE (06:28)
[2019-04-17] MEDS: hydrOXYzine PAMOATE 50 MG CAPSULE (FP) PO PRN (06:28)
[2019-04-17 06:59] VITALS: BP 126/78; PULSE 78; TEMP 97.6
--- NOTE | 2019-04-17 09:07 | DS ---
[facility] Rehab Discharge Summary - [facility] Rehab Discharge Summary Admission Date: 03/20/19 Discharge Date: 04/17/19 - History Present History: Alcohol dependence, Cocaine dependence Additional Comments: Pt is a 49 y/o female with a hx of NELDA admitted to rehab and discharge today after completion of treatment. Pt has been referred to aftercare to [facility], [address] [place] [address]. Pt reports she has a primary care provider, Dr. Lindy Zepeda on [place], [place] and will make appointment for a follow up after discharge today. Pertinent Past History: Asthma Hypothyroidism Anemia GERD Incisional Hernia Chronic Knee Pain Chronic Lower Back Pain Left Toe Fracture Obesity Mood Disorder - Discharge Physical Exam Vital Signs: Vital Signs Temperature 97.6 F 04/17/19 06:30 Pulse Rate 78 04/17/19 06:30 Respiratory Rate 18 04/17/19 06:30 Blood Pressure 126/78 04/17/19 06:30 O2 Sat by Pulse Oximetry (%) Alert o x 3,denies s/h/i nad oob ambulating with steady gait cardiac:s1 s2,rrr lungs:cta,cruz. abdomen:+bs,soft,++fatty,nt. extremities/skin:no edema; skin intact. Pertinent Admission Physical Exam Findings: Laboratory Tests 03/20/19 03/20/19 03/20/19 09:42 10:40 10:40 WBC 9.7 RBC 3.20 L Hgb 10.3 L Hct 32.1 L MCV 100.3 H MCH 32.1 MCHC 32.0 RDW 24.2 H Plt Count 543 H D MPV 8.6 D Sodium Potassium Chloride Carbon Dioxide Anion Gap BUN Creatinine Est GFR (CKD-EPI)AfAm Est GFR (CKD-EPI)NonAf Random Glucose Calcium Total Bilirubin AST ALT Alkaline Phosphatase Total Protein Albumin Urine Color Urine Appearance Urine pH Ur Specific Dinosaur Urine Protein Urine Glucose (UA) Urine Ketones Urine Blood Urine Nitrite Urine Bilirubin Urine Urobilinogen Ur Leukocyte Esterase Urine WBC (Auto) Urine RBC (Auto) Urine Casts (Auto) U Pathogenic Cast Auto U Epithel Cells (Auto) Urine Crystals (Auto) Urine Bacteria (Auto) POC Urine HCG, Qual Negative RPR Titer HIV 1&2 Antibody Screen Negative HIV P24 Antigen Negative 03/20/19 03/20/19 03/23/19 10:40 10:40 11:00 WBC RBC Hgb Hct MCV MCH MCHC RDW Plt Count MPV Sodium 142 Potassium 3.8 Chloride 109 H Carbon Dioxide 27 Anion Gap 6 L BUN 3.9 L Creatinine 0.5 L Est GFR (CKD-EPI)AfAm 129.88 Est GFR (CKD-EPI)NonAf 112.06 Random Glucose 64 L Calcium 8.9 Total Bilirubin 0.9 AST 193 H ALT 61 Alkaline Phosphatase 262 H Total Protein 6.5 Albumin 2.8 L Urine Color Dk yellow Urine Appearance Cloudy Urine pH 5.5 Ur Specific Dinosaur 1.021 Urine Protein Negative Urine Glucose (UA) Negative Urine Ketones Negative Urine Blood Negative Urine Nitrite Negative Urine Bilirubin Negative Urine Urobilinogen 1.0 Ur Leukocyte Esterase Trace Urine WBC (Auto) 5 Urine RBC (Auto) 5 Urine Casts (Auto) 22 U Pathogenic Cast Auto Negative U Epithel Cells (Auto) 6.9 Urine Crystals (Auto) Few Urine Bacteria (Auto) 517.2 POC Urine HCG, Qual RPR Titer Nonreactive HIV 1&2 Antibody Screen HIV P24 Antigen 03/31/19 03/31/19 11:35 11:35 WBC 7.2 RBC 3.26 L Hgb 10.2 L Hct 32.3 L MCV 99.2 H MCH 31.3 MCHC 31.6 L RDW 23.1 H Plt Count 357 D MPV 8.7 Sodium 140 Potassium 4.2 Chloride 108 H Carbon Dioxide 27 Anion Gap 4 L BUN 6.5 L Creatinine 0.6 Est GFR (CKD-EPI)AfAm 122.32 Est GFR (CKD-EPI)NonAf 105.54 Random Glucose 72 L Calcium 8.9 Total Bilirubin 0.6 AST 98 H ALT 52 Alkaline Phosphatase 202 H Total Protein 6.6 Albumin 2.8 L Urine Color Urine Appearance Urine pH Ur Specific Dinosaur Urine Protein Urine Glucose (UA) Urine Ketones Urine Blood Urine Nitrite Urine Bilirubin Urine Urobilinogen Ur Leukocyte Esterase Urine WBC (Auto) Urine RBC (Auto) Urine Casts (Auto) U Pathogenic Cast Auto U Epithel Cells (Auto) Urine Crystals (Auto) Urine Bacteria (Auto) POC Urine HCG, Qual RPR Titer HIV 1&2 Antibody Screen HIV P24 Antigen Copy of lab result given to patient to follow up with his primary care provider visit for medical management. - Treatment Discharge Condition: Discharge condition good Hospital Course: Rehabilitated safely and responded well CD aftercare referral accepted Pt participated in groups and individual sessions while in treatment. - Medication Discharge Medications: Ambulatory Orders Albuterol Sulfate Inhaler - [Ventolin Hfa Inhaler -] 2 inh PO Q4H PRN 03/20/19 Diclofenac Sodium [Diclofenac Sodium ER] 100 mg PO DAILY 03/20/19 Folic Acid - 1 mg PO DAILY 03/20/19 Levothyroxine [Synthroid -] 50 mcg PO DAILY 03/20/19 Pantoprazole Sodium [Protonix] 40 mg PO DAILY 03/20/19 Propylene Glycol/Peg 400/Pf [Systane 0.3-0.4% Eye Drops] 1 each OP BID 03/20/19 Thiamine HCl [Vitamin B1] 100 mg PO DAILY 03/20/19 Ferrous Sulfate [Feosol] 1 tab PO DAILY 03/21/19 Escitalopram Oxalate [Lexapro -] 10 mg PO DAILY #30 tablet 04/16/19 Quetiapine Fumarate [Seroquel -] 100 mg PO HS #30 tablet 04/16/19 - Medication-Assisted Treatment (MAT) Medication-Assisted Treatment (MAT): No - Discharge Instructions Diet, activity, other medical instructions: Diet: Activity: Other medical instructions: - Diagnosis (1) Alcohol dependence Status: Chronic Qualifiers: Substance use status: uncomplicated Qualified Code(s): F10.20 - Alcohol dependence, uncomplicated (2) Hypothyroidism Status: Chronic Qualifiers: Hypothyroidism type: unspecified Qualified Code(s): E03.9 - Hypothyroidism , unspecified (3) Asthma Status: Chronic Qualifiers: Asthma severity: unspecified severity Asthma persistence: unspecified Asthma complication type: unspecified Qualified Code(s): J45.909 - Unspecified asthma, uncomplicated (4) GERD (gastroesophageal reflux disease) Status: Chronic Qualifiers: Esophagitis presence: esophagitis presence not specified Qualified Code(s) : K21.9 - Gastro-esophageal reflux disease without esophagitis (5) Obesity Status: Chronic Qualifiers: Obesity classification: adult class 1 (BMI 30 - 34.9) - Follow-up Referral Minutes to complete discharge: 35 - AMA Did Patient Leave Against Medical Advice: No Additional Comments: Pt reports she has her meds at home.
[2019-04-17] MEDS: ARTIFICIAL TEARS (POLYVINYL ALCOHOL) OPTH DROPS OU SCH (09:37)
[2019-04-17] MEDS: ESCITALOPRAM OXALATE 10 MG TABLET PO SCH (09:38)
[2019-04-17] MEDS: FOLIC ACID 1 MG TABLET (FP) PO SCH (09:38)
[2019-04-17] MEDS: PANTOPRAZOLE 40 MG TABLET PO SCH (09:38)
[2019-04-17] MEDS: THIAMINE HCL 100 MG TABLET (FP) PO SCH (09:38)
[2019-04-17] MEDS: FERROUS SO4 325 MG TABLET (FP) PO SCH (09:38)
[2019-04-17] MEDS: DICLOFENAC SODIUM 25 MG TABLET.DR PO SCH (09:38)
[2019-04-17] MEDS: PRENATAL VITAMINS W/ FOLIC ACID TABLET (FP) PO SCH (09:38)
== END 2019-04-17 09:40 | disposition home or self-care (01) | DRG 772 ==
LOC: YASAS 08:50 → Y3E 10:08
PROVIDERS: ADMIT Allergy & Immunology; ATTEND Allergy & Immunology
PROC: HZ42ZZZ Group Counseling for Substance Abuse Treatment, Cognitive-Behavioral (ICD-10-PCS; principal; 2019-03-20)
DX: F10.20 Alcohol dependence, uncomplicated (principal); F14.10 Cocaine abuse, uncomplicated; F19.282 Other psychoactive substance dependence with psychoactive substance-induced sleep disorder; F19.280 Other psychoactive substance dependence with psychoactive substance-induced anxiety disorder; F39 Unspecified mood [affective] disorder; E03.9 Hypothyroidism, unspecified; J45.909 Unspecified asthma, uncomplicated; I10 Essential (primary) hypertension; K21.9 Gastro-esophageal reflux disease without esophagitis; M54.5 Low back pain; G89.29 Other chronic pain; R04.0 Epistaxis; E66.9 Obesity, unspecified; Z68.31 Body mass index [BMI] 31.0-31.9, adult; Z98.51 Tubal ligation status; Z91.5 Personal history of self-harm
CPT/HCPCS: 36415; 80053; 81003; 81025; 85027; 86593; 87389; Q0162

== ENCOUNTER 2019-10-19 22:37 | Inpatient (IN) | payer OTHER ==
--- NOTE | 2019-10-19 22:59 | PDOC ---
History of Present Illness - General Chief Complaint: Syncope/Near Syncope Stated Complaint: SYNCOPE Time Seen by Provider: 10/19/19 22:55 - History of Present Illness Initial Comments: 49 yo female with PMH of alcoholism, anemia, gastric bypass, hypothyroidism, asthma, gerd BIBEMS after a syncopal episode. Pt says she had 4 alcoholic drinks at 6pm, took seroquel and 4 melatonin at 9pm then had a syncopal episode at 10pm. She was sitting in the chair when she passed out fell on the floor and her next memory was the EMS picking her up. She currently endorses feeling lightheaded and has been having a poor appetite. She denies fevers, chills, headaches, visual disturbance, cp, sob, nvd, abd pain, dysuria. She denies any heroin or cocaine use. She was discharged from detox in [facility]. 10/19/19 23:30 10/19/19 23:33 Past History - Medical History Allergies/Adverse Reactions: Allergies Allergy/AdvReac Type Severity Reaction Status Date / Time No Known Allergies Allergy Verified 10/19/19 22:47 Home Medications: Ambulatory Orders Albuterol Sulfate Inhaler - [Ventolin Hfa Inhaler -] 2 inh PO Q4H PRN 03/20/19 Diclofenac Sodium [Diclofenac Sodium ER] 100 mg PO DAILY 03/20/19 Folic Acid - 1 mg PO DAILY 03/20/19 Levothyroxine [Synthroid -] 50 mcg PO DAILY 03/20/19 Pantoprazole Sodium [Protonix] 40 mg PO DAILY 03/20/19 Propylene Glycol/Peg 400/Pf [Systane 0.3-0.4% Eye Drops] 1 each OP BID 03/20/19 Thiamine HCl [Vitamin B1] 100 mg PO DAILY 03/20/19 Ferrous Sulfate [Feosol] 1 tab PO DAILY 03/21/19 Escitalopram Oxalate [Lexapro -] 10 mg PO DAILY #30 tablet 04/16/19 Quetiapine Fumarate [Seroquel -] 100 mg PO HS #30 tablet 04/16/19 Asthma: Yes Cardiac Disorders: No COPD: No Diabetes: No GI Disorders: Yes (Pt has a hx of GERD.) Disorders: No HTN: No Kidney Stones: No Seizures: No Thyroid Disease: Yes - Surgical History Abdominal Surgery: Yes (gastric bypass 05/2012) - Reproductive History Is Patient Now?: No PID: No - Immunization History Immunization Up to Date: Yes - Psycho-Social/Smoking History Smoking History: Current every day smoker Have you smoked in the past 12 months: No Number of Cigarettes Smoked Daily: 8 If you are a former smoker, when did you quit?: 1996 Information on smoking cessation initiated: No 'Breaking Loose' booklet given: 03/20/19 - Substance Abuse Hx (Audit-C & DAST Scrn) How often the patient has a drink containing alcohol: 2-3 times / week Number of drinks the patient has on a typical day: 1 or 2 How often the patient has six or more drinks on one occasion: Never Score: In Men: 4 or > Positive; In Women: 3 or > Positive: 3 Screen Result (Pos requires Nsg. Audit-10AR): Positive In the last yr the pt used illegal drug/Rx for NonMed reason: No Score: Yes response is considered Positive: 0 Screen Result (Positive result requires Nsg. DAST-10): Negative Review of Systems - Review of Systems Able to Perform ROS?: Yes Constitutional: No: Chills, Fever HEENTM: No: Recent change in vision, Double Vision Respiratory: No: Cough, Shortness of Breath Cardiac (ROS): Yes: Lightheadedness. No: Chest Pain, Palpitations ABD/GI: No: Diarrhea, Nausea, Vomiting : No: Dysuria, Discharge Musculoskeletal: No: Back Pain, Neck Pain Integumentary: No: Erythema, Lesions 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: No: Headache, Numbness, Seizure, Tingling, Unsteady Gait, Ataxia, Dizziness Psychiatric: No: Anxiety, Depression, Mood Swings Endocrine: No: Intolerance to Cold, Intolerance to Heat *Physical Exam - Vital Signs Last Vital Signs Temp Pulse Resp BP Pulse Ox 97.6 F 81 18 92/58 L 98 10/19/19 22:48 10/19/19 22:48 10/19/19 22:48 10/19/19 22:48 10/19/19 22:48 - Physical Exam General Appearance: Yes: Appropriately Dressed. No: Apparent Distress HEENT: positive: EOMI, JACQUE, Normal ENT Inspection, Normal Voice Neck: negative: Tender, Rigid Respiratory/Chest: positive: Lungs Clear, Normal Breath Sounds. negative: Chest Tender, Respiratory Distress Cardiovascular: positive: Regular Rhythm, Regular Rate, S1, S2. negative: Edema, JVD Gastrointestinal/Abdominal: positive: Normal Bowel Sounds, Flat, Soft. negative: Tender Musculoskeletal: positive: Normal Inspection. negative: CVA Tenderness Extremity: positive: Normal Capillary Refill, Normal Inspection, Normal Range of Motion Integumentary: positive: Normal Color, Dry, Warm Neurologic: positive: case management coordinator II-XII NML intact, Fully Oriented, Alert, Normal Mood/Affect ED Treatment Course - LABORATORY CBC & Chemistry Diagram: 10/19/19 23:30 10/19/19 23:30 Medical Decision Making - Medical Decision Making 49 yo female with PMH of alcohol abuse, anemia, gastric bypass, hypothyroidism BIBEMS after a syncopal episode while sitting down. BP 92/58, remeasured to 80s/60s. CBC pending CMP pending Cardiac Profile pending Chest-Xray is normal CT Head & Cervical is normal Alcohol Level is 212 Pt signed out to night team. Discharge - Discharge Information Problems reviewed: Yes Clinical Impression/Diagnosis: Syncope Condition: Guarded Disposition: AGAINST MEDICAL ADVICE - Follow up/Referral - Patient Discharge Instructions - Post Discharge Activity
[2019-10-19] MEDS ORDERED: SODIUM CHLORIDE 1,000 ML IV STA (23:26)
[2019-10-19 23:33] VITALS: BMI 26.6
[2019-10-19 23:47] LABS: HEMATOCRIT 34.4 % (32.4-45.2); HEMOGLOBIN 11.5 GM/dL (10.7-15.3); MCH 33.5 pg (25.7-33.7); MCHC 33.3 g/dl (32.0-36.0); MEAN CELL VOLUME 100.6 fl (80-96); MEAN PLT VOLUME 8.1 fl (7.5-11.1); PLATELET COUNT 209 K/MM3 (134-434); RBC 3.42 M/mm3 (3.60-5.2); RDW 17.2 % (11.6-15.6); WHITE BLOOD COUNT 5.5 K/mm3 (4.0-10.0)
--- NOTE | 2019-10-19 23:57 | PDOC ---
*Physical Exam - Vital Signs Last Vital Signs Temp Pulse Resp BP Pulse Ox 97.6 F 81 18 92/58 L 97 10/19/19 22:48 10/19/19 22:48 10/19/19 22:48 10/19/19 22:48 10/19/19 23:36 - Physical Exam 10/19/19 23:55 Pending labs, CT head/neck. Hypotensive Dispo pending BP, imaging, sobriety 10/20/19 02:33 Potassium 2.9 Given 40meq KCl PO 10/20/19 03:18 CT head and c-spine negative Repeat BP 109/61 Vital Signs - 8 hr 10/19/19 10/19/19 10/20/19 22:48 23:36 03:14 Temperature 97.6 F Pulse Rate 81 Pulse Rate [ 83 Left] Respiratory 18 16 Rate Blood Pressure 92/58 L Blood Pressure 109/61 [Left Arm] O2 Sat by Pulse 98 97 96 Oximetry (%) 10/20/19 03:22 Admit for syncope Signed out to admitting team ED Treatment Course - LABORATORY CBC & Chemistry Diagram: 10/19/19 23:30 10/19/19 23:30 - ADDITIONAL ORDERS Additional order review: 10/19/19 23:30 RBC 3.42 L MCV 100.6 H MCHC 33.3 RDW 17.2 H MPV 8.1 Discharge - Discharge Information Problems reviewed: Yes Clinical Impression/Diagnosis: Syncope Condition: Guarded - Follow up/Referral - Patient Discharge Instructions - Post Discharge Activity
--- NOTE | 2019-10-20 00:07 | PDOC ---
Documentation entered by Jeanette Rivera SCRIBE, acting as scribe for Adri Craig DO. Adri Craig DO: This documentation has been prepared by the toddibe, Jeanette Rivera SCRIBE, under my direction and personally reviewed by me in its entirety. I confirm that the documentation accurately reflects all work, treatment, procedures, and medical decision making performed by me. Attending Attestation - Resident Resident Name: [email or web address] - ED Attending Attestation I have performed the following: I have examined & evaluated the patient, The case was reviewed & discussed with the resident, I agree w/resident's findings & plan, Exceptions are as noted - HPI HPI: 10/19/19 23:15 Patient is a 49 year old female with a significant past medical history of alcohol abuse, anemia, gastric bypass, hypothyroidism, asthma, and GERD, who presents to the ED, BIBA, with syncope and loss of consciousness from earlier today. Patient remembers falling and then waking up in the ambulance. Patient's helped her up when she fell. Patient disclosed she has been experiencing lack of appetite for the last few days. Patient endorses: lightheadedness Patient denies: fever, chills, SOB, or any other related symptoms. Allergies: NKDA - Physicial Exam PE: 10/19/19 23:49 gen: aaox3, hypotensive heent: EOMI, dry mm, posterior pharynx clear heart: +s1s2 reg lungs: cta b/l abd: soft, nt/nd +bs neck: supple, no ttp ext: no c/c/e neuro: cn ii-xii grossly intact, no focal deficits - Medical Decision Making 10/20/19 00:04 a/p: 49yo female with a syncopal episode tonight -pt admits to drinking today -pt states she was drinking water, but appears dehydrated upon arrival -suspect vasovagal syncope, but pt still hypotensive -will send labs, ekg, trop, head ct given fall and hit her head -ivf hydration running -will monitor and reassess -pt has been endorsed to the nighttime ED team pending labs and further evaluation Heart Score/ECG Review - ECG Intrepretation Comment:: 10/20/19 00:06 sinus at 79, nl axis, qtc 502, no acute st changes, t wave inversions v1-2 and q waves septally which is age indeterminate Discharge - Discharge Information Problems reviewed: Yes Clinical Impression/Diagnosis: Syncope Condition: Guarded - Follow up/Referral - Patient Discharge Instructions - Post Discharge Activity
[2019-10-20 00:20] LABS: ALBUMIN 2.4 g/dl (3.4-5.0); ALK PHOS 251 U/L (45-117); BILIRUBIN,TOTAL 0.4 mg/dL (0.2-1); BLOOD UREA NITROGEN 5.3 mg/dL (7-18); CALCIUM 7.7 mg/dL (8.5-10.1); CHLORIDE 109 mmol/L (98-107); CO2 25 mmol/L (21-32); CREATININE 0.6 mg/dL (0.55-1.3); GLUCOSE,RANDOM 84 mg/dL (74-106); SGOT/AST 118 U/L (15-37); SGPT/ALT 44 U/L (13-61); SODIUM 145 mmol/L (136-145); TOT PROT 5.8 g/dl (6.4-8.2)
[2019-10-20 00:23] LABS: ANION GAP 10 MMOL/L (8-16)
[2019-10-20 01:20] LABS: POTASSIUM 2.9 mmol/L (3.5-5.1)
[2019-10-20] MEDS ORDERED: POTASSIUM CHLORIDE TABS 20 MEQ TABLET.ER (FP) PO ONE ×2 (02:33→03:07)
--- NOTE | 2019-10-20 03:46 | PN ---
Teaching Attending Note Name of Resident: Alise Brantley ATTENDING PHYSICIAN STATEMENT I saw and evaluated the patient. I reviewed the resident's note and discussed the case with the resident. I agree with the resident's findings and plan as documented. SUBJECTIVE: Patient is a 49 year old woman with a PMH of Alcohol abuse, Tobacco use, Anemia, Gastric bypass (05/2012), Hypothyroidism, Asthma and GERD brought by EMS after a syncopal episode. SHE reports that she had 4 alcoholic drinks at 6pm, took Seroquel and 4 tablets of Melatonin at 9 pm then had a syncopal episode at 10 pm. She was sitting in the chair when she passed out fell on the floor and her next memory was the EMS picking her up. She currently reports feeling ligh theaded and has had a poor appetite. She denies any heroin or cocaine use today. She was discharged from detox in March 2019. Patient denies chest pain, shortness of breath, abdominal pain, headache, palpitations, fever, chills, nausea, vomiting, diarrhea, constipation, dysuria, frequency, urgency, melena, hematochezia or hematuria. Denies illicit drug use. No sick contacts or recent travels. Family history of skin cancer in mother. OBJECTIVE: Alert Vital Signs Period Temp Pulse Resp BP Sys/Aleman Pulse Ox Last 24 Hr 97.6 F 81-83 16-18 92-109/58-61 96-98 HEENT: No Jaundice, eye redness or discharge, PERRLA, EOMI. Normocephalic, atraumatic. External ears are normal and hearing is grossly intact. No nasal discharge. Neck: Supple, nontender. No palpable adenopathy or thyromegaly. No JVD Chest: Good effort. Clear to auscultation and percussion. Heart: Regular. No S3, rub or murmur Abdomen: Not distended, soft, nontender and no HSM. No rebound or guarding. Normal bowel sounds. Ext: Peripheral pulses intact. No leg edema. Skin: Warm and dry. No petechiae, rash or ecchymosis. Neuro: Alert. Oriented x3. No asterexis or tremors. CN 2-12 grossly intact. Sensation grossly intact in all four extremities and DTR are symmetric. Psych: Appropriate mood and affect. Good insight. Home Medications Medication Instructions Recorded Albuterol Sulfate Inhaler - 2 inh PO Q4H PRN 03/20/19 [Ventolin Hfa Inhaler -] Diclofenac Sodium [Diclofenac 100 mg PO DAILY 03/20/19 Sodium ER] Folic Acid - 1 mg PO DAILY 03/20/19 Levothyroxine [Synthroid -] 50 mcg PO DAILY 03/20/19 Pantoprazole Sodium [Protonix] 40 mg PO DAILY 03/20/19 Propylene Glycol/Peg 400/Pf 1 each OP BID 03/20/19 [Systane 0.3-0.4% Eye Drops] Thiamine HCl [Vitamin B1] 100 mg PO DAILY 03/20/19 Ferrous Sulfate [Feosol] 1 tab PO DAILY 03/21/19 Escitalopram Oxalate [Lexapro -] 10 mg PO DAILY #30 tablet 04/16/19 Quetiapine Fumarate [Seroquel -] 100 mg PO HS #30 tablet 04/16/19 Abnormal Lab Results 10/19/19 10/19/19 23:30 23:30 RBC 3.42 L MCV 100.6 H RDW 17.2 H Potassium 2.9 L* Chloride 109 H BUN 5.3 L Calcium 7.7 L AST 118 H Alkaline Phosphatase 251 H Total Protein 5.8 L Albumin 2.4 L Alcohol, Quantitative 212.0 H Current Medications Generic Name Dose Route Start Last Admin Trade Name Freq PRN Reason Stop Dose Admin Enoxaparin Sodium 40 mg 10/20/19 10:00 Lovenox - SQ DAILY GEETHA Folic Acid 1 mg 10/20/19 10:00 Folic Acid - PO DAILY GEETHA Potassium Chloride 10 meq in 100 mls @ 100 mls/hr 10/20/19 05:45 Potassium Chloride 10 Meq Premix Ivpb - IVPB 10/20/19 08:44 Q60M GEETHA Folic Acid 1 mg/ Thiamine HCl 1,000 mls @ 125 mls/hr 10/20/19 05:34 100 mg/ Multivitamins/Minerals IVPB 10/20/19 13:33 10 ml/ Sodium Chloride ONCE ONE Lorazepam 1 mg 10/21/19 05:00 Ativan - PO 10/21/19 23:01 0500,1100,1700,2300 GEETHA Lorazepam 1 mg 10/20/19 05:35 Ativan - PO 10/22/19 00:00 Q4H PRN Symptoms of Withdrawal Lorazepam 2 mg 10/20/19 05:00 Ativan PO 10/20/19 23:01 0500,1100,1700,2300 GEETHA Lorazepam 0.5 mg 10/22/19 05:00 Ativan - PO 10/22/19 23:01 Q6H GEETHA Lorazepam 0.5 mg 10/22/19 00:00 Ativan - PO 10/23/19 00:00 Q4H PRN Symptoms of Withdrawal Lorazepam 0.5 mg 10/23/19 05:00 Ativan - PO 10/23/19 05:01 ONCE ONE Nicotine 7 mg 10/20/19 10:00 Nicoderm Patch - TD DAILY [facility] ASSESSMENT AND PLAN: 1. Syncope/Alcohol intoxication - Alcohol intoxication (212 mg/dL) and hypokalemia may have contributed to syncope. No evidence of acute intracranial pathology on noncontrast head CT scan. C-spine CT did not show any fracture or subluxation. No acute abnormality on CXR. EKG shows NSR at 79/minute and QTc 502 with T wave inversion in V1-V2, and septal infarct of undetermined age. Not significantly changed compared to prior EKG. Initial troponin is negative. Will avoid drugs that may prolong QTc. Will admit to telemetry, trend troponin, monitor LFTs, repeat EKG, get ECHO, urinalysis, urine toxicology, carotid doppler, fasting lipids, brain MRI, do speech and swallow evaluation, neurochecks and implement fall/aspiration/seizure precautions. Consult Neurology. Hypokalemia likely partly due urinary wasting associated with alcoholism. Will check serum magnesium, give IV and PO KCL., Will implement [facility] alcohol withdrawal protocol. Treat with IV Banana bag, thiamine and folic acid. Monitor and replete electrolytes (Ca,Mg,K,P). Counseled patient about abstaining from alcohol. Will consult microcomputer support specialist and refer to alcohol detox upon discharge. Viral testing for COVID-19 ordered and patient placed on airborne, droplet and contact isolation. Will continue comprehensive care for all of patients comorbid conditions including Synthroid for hypothyroidism, Protonix for GERD and Duoneb PRN for Asthma. 2. Tobacco Use Counseled on risks associated with tobacco use. We will provide patient all the necessary assistance to facilitate smoking cessation and prescribe Nicotine patch. 3. Hypoalbuminemia - Possibly due to combined effects of malnutrition and inflammation associated with comorbid conditions. Will ensure adequate dietary protein intake and also consult cardroom manager. Urinalysis pending. 4. DVT prophylaxis - Lovenox 40 mg SQ q 24 hours. 5. Advance directives - Full code
[2019-10-20] MEDS ORDERED: LORazepam 0.5 MG TABLET PO SCH ×2 (05:00→11:00)
[2019-10-20] MEDS ORDERED: LORazepam 0.5 MG TABLET PO PRN ×2 (05:35→05:50)
[2019-10-20] MEDS ORDERED: LORazepam 1 MG TABLET PO PRN (05:45)
[2019-10-20] MEDS ORDERED: LORazepam 0.5 MG TABLET ONE (05:49)
[2019-10-20] MEDS ORDERED: KCL 10 MEQ IVPB 10 MEQ/100 ML INFUS.BAG IVPB ONE ×3 (05:50→08:29)
[2019-10-20] MEDS ORDERED: FOLIC ACID INJECTION - 1 MG, THIAMINE HCL 100 MG, MULTIVIT INJECTION ADULT 10 ML in SOD... IVPB ONE (06:00)
[2019-10-20] MEDS: KCL 10 MEQ IVPB 10 MEQ/100 ML INFUS.BAG IVPB SCH ×3 (06:08→08:35)
[2019-10-20 06:09] LABS: MAGNESIUM 1.7 mg/dL (1.8-2.4)
--- NOTE | 2019-10-20 06:18 | HP ---
CHIEF COMPLAINT: fell and passed out PCP: Dr. Zepeda HISTORY OF PRESENT ILLNESS: 49yo F with PMHx of alcohol abuse, anemia, gastric bypass, hypothyroidism, asthma, GERD who presented to the ED for syncope with LOC. She said that she was standing in the kitchen and the suddenly fell to the ground. Patient denied any changes in daily habits such as poor PO intake, poor hydration, or consumption of any substances and/or drugs that she usually does not take. Patient endorsed some lightheadedness but denied NVD, constipation, polyuria, dysuria, headaches, changes in vision. 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 Home: lives with and 2 sons Allergies No Known Allergies Allergy (Verified 10/19/19 22:47) HOME MEDICATIONS: Home Medications Medication Instructions Recorded Albuterol Sulfate Inhaler - 2 inh PO Q4H PRN 03/20/19 [Ventolin Hfa Inhaler -] Diclofenac Sodium [Diclofenac 100 mg PO DAILY 03/20/19 Sodium ER] Folic Acid - 1 mg PO DAILY 03/20/19 Levothyroxine [Synthroid -] 50 mcg PO DAILY 03/20/19 Pantoprazole Sodium [Protonix] 40 mg PO DAILY 03/20/19 Propylene Glycol/Peg 400/Pf 1 each OP BID 03/20/19 [Systane 0.3-0.4% Eye Drops] Thiamine HCl [Vitamin B1] 100 mg PO DAILY 03/20/19 Ferrous Sulfate [Feosol] 1 tab PO DAILY 03/21/19 Escitalopram Oxalate [Lexapro -] 10 mg PO DAILY #30 tablet 04/16/19 Quetiapine Fumarate [Seroquel -] 100 mg PO HS #30 tablet 04/16/19 REVIEW OF SYSTEMS as per HPI PHYSICAL EXAMINATION Vital Signs - 24 hr 10/19/19 10/19/19 10/20/19 22:48 23:36 03:14 Temperature 97.6 F Pulse Rate 81 Pulse Rate [ 83 Left] Respiratory 18 16 Rate Blood Pressure 92/58 L Blood Pressure 109/61 [Left Arm] O2 Sat by Pulse 98 97 96 Oximetry (%) GENERAL: female, appears somewhat younger than stated age, fully oriented, in no acute distress HEAD: Normal with no signs of trauma. EYES: PERRL, direct and consensual pupillary reflex intact, extraocular movements intact LUNGS: CTAB HEART: RRR, clear S1 S2 appreciated without murmurs ABDOMEN: Soft, nontender, not distended, active bowel sounds EXTREMITIES: 2+ radial and dorsalis pedis pulses, warm, no peripheral edema noted NEUROLOGICAL: Cranial nerves II-XII grossly intact with normal speech and symmetrical facial movements PSYCHIATRIC: Cooperative. Limited eye contact. "Normal" mood and restricted affect SKIN: some tatoos, otherwise no rashes or lesions noted including scalp ins pection Laboratory Results - last 24 hr 10/19/19 10/19/19 23:30 23:30 WBC 5.5 RBC 3.42 L Hgb 11.5 Hct 34.4 MCV 100.6 H MCH 33.5 MCHC 33.3 RDW 17.2 H Plt Count 209 D MPV 8.1 Sodium 145 Potassium 2.9 L* Chloride 109 H Carbon Dioxide 25 Anion Gap 10 BUN 5.3 L Creatinine 0.6 Est GFR (CKD-EPI)AfAm 122.32 Est GFR (CKD-EPI)NonAf 105.54 Random Glucose 84 Calcium 7.7 L Total Bilirubin 0.4 AST 118 H ALT 44 Alkaline Phosphatase 251 H Creatine Kinase 38 Troponin I < 0.02 Total Protein 5.8 L Albumin 2.4 L Alcohol, Quantitative 212.0 H ASSESSMENT/PLAN: 49yo F with PMHx of alcohol abuse, anemia, gastric bypass, hypothyroidism, asthma, GERD who presented to the ED for syncope with LOC. Lab workup was remarkable for K 2.9, MCV 100.6, AST 118, AlkPhos 251, quantitative alcohol 212 and EKG showed NSR, possible L atrial enlargement, septal infarct, QTc 502. Patient was admitted for further syncope workup and treatment for alcohol withdrawal. #Syncope - ordered carotid US, echo, rpt EKG, fall precautions possible alcohol withdrawal - ordered ativan protocol 11am - KCl x3bags - add-on Mag - thiamine IVPB, then PO - ordered COVID test #DVT PPX - lovenox #FEN - no standing fluids - replete lytes PRN - regular diet #Dispo: continue monitoring in telemetry Family Medical History Family History: As Documented Visit type - Emergency Visit Emergency Visit: Yes ED Registration Date: 10/20/19 Care time: The patient presented to the Emergency Department on the above date and was hospitalized for further evaluation of their emergent condition. - New Patient This patient is new to me today: Yes Date on this admission: 10/21/19 - Critical Care Critical Care patient: No ATTENDING PHYSICIAN STATEMENT I saw and evaluated the patient. I reviewed the resident's note and discussed the case with the resident. I agree with the resident's findings and plan as documented. SUBJECTIVE: OBJECTIVE: ASSESSMENT AND PLAN:
[2019-10-20 07:01] VITALS: BP 124/82; PULSE 85; TEMP 98.2
[2019-10-20] MEDS ORDERED: MAGNESIUM 1GM/D5W - 1 GM/100 ML IVPB IVPB ONE (07:17)
[2019-10-20] MEDS ORDERED: MAGNESIUM 1GM/D5W 100ML - 100 ML IVPB IVPB ONE (07:30)
[2019-10-20] MEDS ORDERED: FOLIC ACID 1 MG TABLET (FP) PO SCH (10:00)
[2019-10-20] MEDS ORDERED: ENOXAPARIN NA (PORCINE) 40 MG/0.4 ML DISP.SYRIN SQ SCH (10:00)
[2019-10-20] MEDS ORDERED: THIAMINE HCL 100 MG TABLET (FP) PO SCH (10:00)
[2019-10-20] MEDS ORDERED: NICOTINE 7 MG/24 HOURS TOPICAL PATCH TD SCH (10:00)
--- NOTE | 2019-10-20 10:51 | ECHO ---
Version: 1 Name: JUDAH ESCOBEDO Exam: Adult Echocardiogram Study Date: 10/20/2019, 9:09 AM Age: 49 Years MMode/2D Measurements & Calculations IVSd: 1.67 cm LVIDs: 2.7 cm LVIDd: 3.8 cm LVPWd: 0.84 cm LAV (MOD-bp): 37.2 ml ACS: 2.23 cm Ao root diam: 3.3 cm LVOT diam: 2.23 cm LA dimension: 2.6 cm Doppler Measurements & Calculations MV E max mookie: 96.7 cm/sec MV V2 max: 138.5 cm/sec MV A max mookie: 122.5 cm/sec MV max P.7 mmHg MV mean P.8 mmHg MV E/A: 0.79 Lat E/e': 5.8 Lat Peak E' Mookie: 16.6 cm/sec MR max P.0 mmHg Ao max P.7 mmHg Ao V2 max: 147.7 cm/sec Left Ventricle Left ventricular systolic function is normal. Ejection Fraction = 55-60%. The transmitral spectral D oppler flow pattern is suggestive of impaired LV relaxation. Right Ventricle The right ventricle is normal in size and function. Atria Borderline left atrial enlargement. Right atrial size is normal. Mitral Valve The mitral valve is grossly normal. There is no mitral valve stenosis. There is trace to mild mitral regurgitation. Tricuspid Valve The tricuspid valve is normal in structure and function. There is Trace to mild tricuspid regurgitat ion. Aortic Valve The aortic valve opens well. No hemodynamically significant valvular aortic stenosis. No aortic regu rgitation is present. Pulmonic Valve The pulmonic valve is not well seen, but is grossly normal. There is no pulmonic valvular stenosis. There is no pulmonic valvular regurgitation. Great Vessels The aortic root is normal size. Pericardium/Pleura There is no pericardial effusion. Summary Statements Left ventricular systolic function is normal. Ejection Fraction = 55-60%. The transmitral spectral Doppler flow pattern is suggestive of impaired LV relaxation. Borderline left atrial enlargement. There is trace to mild mitral regurgitation. There is Trace to mild tricuspid regurgitation. There is no pericardial effusion. MD Kramer *Shell 10/20/2019, 10:50 AM Ordering Physician: Sukhdev Easley Referring Physician: SUKHDEV EASLEY Performed By: Luis Angel Mead
--- NOTE | 2019-10-20 11:01 | EKG ---
Test Reason : Blood Pressure : / mmHG Vent. Rate : 075 BPM Atrial Rate : 075 BPM P-R Int : 168 ms QRS Dur : 072 ms QT Int : 446 ms P-R-T Axes : 044 035 055 degrees QTc Int : 498 ms SINUS RHYTHM WITH PREMATURE ATRIAL COMPLEXES SEPTAL INFARCT (CITED ON OR BEFORE 19-OCT-2019) ABNORMAL ECG WHEN COMPARED WITH ECG OF 19-OCT-2019 22:59, PREMATURE ATRIAL COMPLEXES ARE NOW PRESENT Confirmed by JANELL HARRISON MD ([id number]) on 10/20/2019 11:00:50 AM Referred By: Confirmed By:JANELL HARRISON MD
--- NOTE | 2019-10-20 13:00 | DS ---
Physical Exam: SUBJECTIVE: Patient seen and examined. Left AMA. OBJECTIVE: Vital Signs Period Temp Pulse Resp BP Sys/Aleman Pulse Ox Last 24 Hr 97.6 F-98.2 F 81-85 16-20 92-124/58-82 96-98 PHYSICAL EXAM HEENT: No Jaundice, eye redness or discharge, PERRLA, EOMI. Normocephalic, atraumatic. External ears are normal and hearing is grossly intact. No nasal discharge. Neck: Supple, nontender. No palpable adenopathy or thyromegaly. No JVD Chest: Good effort. Clear to auscultation and percussion. Heart: Regular. No S3, rub or murmur Abdomen: Not distended, soft, nontender and no HSM. No rebound or guarding. Normal bowel sounds. Ext: Peripheral pulses intact. No leg edema. Skin: Warm and dry. No petechiae, rash or ecchymosis. Neuro: Alert. Oriented x3. No asterexis or tremors. CN 2-12 grossly intact. Sensation grossly intact in all four extremities and DTR are symmetric. Psych: Appropriate mood and affect. Good insight. LABS Laboratory Results - last 24 hr 10/19/19 10/19/19 23:30 23:30 WBC 5.5 RBC 3.42 L Hgb 11.5 Hct 34.4 MCV 100.6 H MCH 33.5 MCHC 33.3 RDW 17.2 H Plt Count 209 D MPV 8.1 Sodium 145 Potassium 2.9 L* Chloride 109 H Carbon Dioxide 25 Anion Gap 10 BUN 5.3 L Creatinine 0.6 Est GFR (CKD-EPI)AfAm 122.32 Est GFR (CKD-EPI)NonAf 105.54 Random Glucose 84 Calcium 7.7 L Magnesium 1.7 L Total Bilirubin 0.4 AST 118 H ALT 44 Alkaline Phosphatase 251 H Creatine Kinase 38 Troponin I < 0.02 Total Protein 5.8 L Albumin 2.4 L Alcohol, Quantitative 212.0 H HOSPITAL COURSE: Date of Admission:10/20/19 49yo F with PMHx of alcohol abuse, anemia, gastric bypass, hypothyroidism, asthma, GERD who presented to the ED for syncope with LOC. Lab workup was remarkable for K 2.9, MCV 100.6, AST 118, AlkPhos 251, quantitative alcohol 212 and EKG showed NSR, possible L atrial enlargement, septal infarct, QTc 502. Patient was admitted for further syncope workup and treatment for alcohol withdrawal and cardiac workup in tele. Pt recommended to have further workup including abdominal ultrasound, hepatitis panel. Pt requested to leave AMA. Risks were explained to patient. Date of Discharge: 10/20/19 Minutes to complete discharge: 36 Discharge Summary Problems reviewed: Yes Reason For Visit: SYNCOPE Condition: Guarded - Instructions Referrals: Jenifer Zepeda MD [Primary Care Provider] - Disposition: AGAINST MEDICAL ADVICE - Home Medications Comprehensive Discharge Medication List: Ambulatory Orders Albuterol Sulfate Inhaler - [Ventolin Hfa Inhaler -] 2 inh PO Q4H PRN 03/20/19 Diclofenac Sodium [Diclofenac Sodium ER] 100 mg PO DAILY 03/20/19 Folic Acid - 1 mg PO DAILY 03/20/19 Levothyroxine [Synthroid -] 50 mcg PO DAILY 03/20/19 Pantoprazole Sodium [Protonix] 40 mg PO DAILY 03/20/19 Propylene Glycol/Peg 400/Pf [Systane 0.3-0.4% Eye Drops] 1 each OP BID 03/20/19 Thiamine HCl [Vitamin B1] 100 mg PO DAILY 03/20/19 Ferrous Sulfate [Feosol] 1 tab PO DAILY 03/21/19 Escitalopram Oxalate [Lexapro -] 10 mg PO DAILY #30 tablet 04/16/19 Quetiapine Fumarate [Seroquel -] 100 mg PO HS #30 tablet 04/16/19 This patient is new to me today: No Emergency Visit: Yes ED Registration Date: 10/20/19 Care time: The patient presented to the Emergency Department on the above date and was hospitalized for further evaluation of their emergent condition. Critical Care patient: No - Discharge Referral Referred to [facility] No ATTENDING PHYSICIAN STATEMENT I saw and evaluated the patient. I reviewed the resident's note and discussed the case with the resident. I agree with the resident's findings and plan as documented. SUBJECTIVE: OBJECTIVE: ASSESSMENT AND PLAN:
[2019-10-21] MEDS ORDERED: LORazepam 0.5 MG TABLET PO SCH (05:00)
[2019-10-22] MEDS ORDERED: LORazepam 0.5 MG TABLET PO PRN
[2019-10-22] MEDS ORDERED: LORazepam 0.5 MG TABLET PO SCH ×2 (05:00)
[2019-10-23] MEDS ORDERED: LORazepam 0.5 MG TABLET PO PRN
[2019-10-23] MEDS ORDERED: LORazepam 0.5 MG TABLET PO SCH (05:00)
[2019-10-23] MEDS ORDERED: LORazepam 0.5 MG TABLET PO ONE (05:00)
[2019-10-24] MEDS ORDERED: LORazepam 0.5 MG TABLET PO ONE (05:00)
--- NOTE | 2019-10-25 13:15 | EKG ---
Test Reason : Blood Pressure : / mmHG Vent. Rate : 079 BPM Atrial Rate : 079 BPM P-R Int : 164 ms QRS Dur : 078 ms QT Int : 438 ms P-R-T Axes : 056 050 069 degrees QTc Int : 502 ms NORMAL SINUS RHYTHM LEFT ATRIAL ENLARGEMENT SEPTAL INFARCT , AGE UNDETERMINED PROLONGED QT ABNORMAL ECG Confirmed by MD KIET, SHAAN ([id number]) on 10/25/2019 1:15:27 PM Referred By: Confirmed By:SHAAN SANTA MD
== END 2019-10-20 10:15 | disposition left against medical advice (07) | DRG 425 ==
LOC: JER 22:37 → JERBED 10-20 03:19
PROVIDERS: ADMIT Internal Medicine
DX: E87.6 Hypokalemia (principal); E88.09 Other disorders of plasma-protein metabolism, not elsewhere classified; R55 Syncope and collapse; E03.9 Hypothyroidism, unspecified; K21.9 Gastro-esophageal reflux disease without esophagitis; Z72.0 Tobacco use; F10.239 Alcohol dependence with withdrawal, unspecified; E46 Unspecified protein-calorie malnutrition
CPT/HCPCS: 36415; 70450-TC; 71045-TC-FY; 72125-TC; 80053; 80307; 82550; 83735; 84484; 85027; 93005; 93010; 93306-TC; 99285-25; U0003

== ENCOUNTER 2019-12-09 20:40 | Emergency (ER) | payer OTHER ==
[2019-12-09 20:54] VITALS: BP 121/73; PULSE 81; TEMP 98.3; BMI 26.5
--- NOTE | 2019-12-09 21:02 | PDOC ---
Attending Attestation - Resident Resident Name: Sam Brandon - ED Attending Attestation I have performed the following: I have examined & evaluated the patient, The case was reviewed & discussed with the resident, I agree w/resident's findings & plan - HPI HPI: 12/09/19 21:37 Pt has a hx of anxiety. Pt wants to be checked out. No specific complaints. - Physicial Exam PE: 12/09/19 22:45 Normal exam - Medical Decision Making 12/09/19 22:45 Pt has normal labs and she will be given ativan 2 mg PO for anxiety Discharge - Discharge Information Problems reviewed: Yes Clinical Impression/Diagnosis: Anxiety, Hypokalemia Condition: Good Disposition: HOME - Follow up/Referral Referrals: Jenifer Zepeda MD [Primary Care Provider] - - Patient Discharge Instructions Patient Printed Discharge Instructions: DI for Anxiety -- Adult, DI for Hypokalemia Additional Instructions: You came into the ED for anxiety attack. This is most likely due to you anxiety disorder. At the ED we did basic labs and an EKG. The EKG did show you have a prolonged QTc (542) which you should follow up with your PCP. You also had low Potassium 3.3 so we decided to give you Potassium as well. You also had somewhat low glucose so we decided to give you some food. Please follow up with your psychiatrist within the next week. Please also follow up with your PCP for the findings found above within the next few days. Please come back for any of the following: - any suicidal thoughts or idealations - any hallucinatins - Any chest pain or shortness of breath or loss of consciousness - any palpitations For any emergent symptoms please call for medical help right away - Post Discharge Activity Work/Back to School Note: My Personal Safety Plan
--- NOTE | 2019-12-09 21:31 | PDOC ---
History of Present Illness - General Chief Complaint: Psychiatric Stated Complaint: ANXIETY Time Seen by Provider: 12/09/19 20:47 - History of Present Illness Initial Comments: 12/09/19 21:24 49 yo female with pmh of anxiety, asthma, and hypothyroidism presents to ED for anxiety attack that occurred today. Pt explains her anxiety has been getting worse for the last 6 months due to COVID 19. Pt today had an anxiety very similar to her prior anxiety attacks due to some belief that her may leave her. Pt explains after anxiety attack she felt that her asthma was coming on so she decided to call EMS. EMS gave her some nasal O2 no albuterol and pt felt back to baseline. Pt denies sick contacts, chest pain, current SOB, abd pain, nausea, emesis. Pt does say that she did lose her appetite for the last three days due to her anxiety. PMH: anxiety, asthma, hypothyroidism (according to note: GERD alcohol abuse) Meds: synthroid, lexapro, folic acid, potasium, albuterol prn PSH: 3 c-sections, breast bypass, gastric bypass Allergies: denies Social: smokes 3-4 cigarettes a day for the last 6 months; drinks 3-4 beers 3-4 days a week; denies drug use PCP: Dr. garcia therapist: Teresa Del Valle Past History - Medical History Allergies/Adverse Reactions: Allergies Allergy/AdvReac Type Severity Reaction Status Date / Time No Known Allergies Allergy Verified 12/09/19 20:49 Home Medications: Ambulatory Orders Albuterol Sulfate Inhaler - [Ventolin Hfa Inhaler -] 2 inh PO Q4H PRN 03/20/19 Diclofenac Sodium [Diclofenac Sodium ER] 100 mg PO DAILY 03/20/19 Folic Acid - 1 mg PO DAILY 03/20/19 Levothyroxine [Synthroid -] 50 mcg PO DAILY 03/20/19 Pantoprazole Sodium [Protonix] 40 mg PO DAILY 03/20/19 Propylene Glycol/Peg 400/Pf [Systane 0.3-0.4% Eye Drops] 1 each OP BID 03/20/19 Thiamine HCl [Vitamin B1] 100 mg PO DAILY 03/20/19 Ferrous Sulfate [Feosol] 1 tab PO DAILY 03/21/19 Escitalopram Oxalate [Lexapro -] 10 mg PO DAILY #30 tablet 04/16/19 Quetiapine Fumarate [Seroquel -] 100 mg PO HS #30 tablet 04/16/19 Asthma: Yes Cardiac Disorders: No COPD: No Diabetes: No GI Disorders: Yes (Pt has a hx of GERD.) Disorders: No HTN: No Kidney Stones: No Seizures: No Thyroid Disease: Yes - Surgical History Abdominal Surgery: Yes (gastric bypass 05/2012) - Reproductive History Is Patient Now?: No PID: No - Immunization History Immunization Up to Date: Yes - Psycho-Social/Smoking History Smoking History: Never smoked Have you smoked in the past 12 months: No Number of Cigarettes Smoked Daily: 2 If you are a former smoker, when did you quit?: 1996 Information on smoking cessation initiated: No 'Breaking Loose' booklet given: 03/20/19 - Substance Abuse Hx (Audit-C & DAST Scrn) How often the patient has a drink containing alcohol: Never Score: In Men: 4 or > Positive; In Women: 3 or > Positive: 0 Screen Result (Pos requires Nsg. Audit-10AR): Negative In the last yr the pt used illegal drug/Rx for NonMed reason: No Score: Yes response is considered Positive: 0 Screen Result (Positive result requires Nsg. DAST-10): Negative Review of Systems - Review of Systems Comments:: 12/10/19 05:41 GENERAL/CONSTITUTIONAL: No fever or chills. No weakness. HEAD, EYES, EARS, NOSE AND THROAT: No change in vision. No ear pain or discharge. No sore throat. CARDIOVASCULAR: No chest pain. SOB RESPIRATORY: No cough, wheezing, or hemoptysis. GASTROINTESTINAL: No nausea, vomiting, diarrhea or constipation. Dec appetite GENITOURINARY: No dysuria, frequency, or change in urination. MUSCULOSKELETAL: No joint or muscle swelling or pain. No neck or back pain. SKIN: No rash NEUROLOGIC: No headache, vertigo, loss of consciousness, or change in strength/sensation. ENDOCRINE: No increased thirst. No abnormal weight change HEMATOLOGIC/LYMPHATIC: No anemia, easy bleeding, or history of blood clots. ALLERGIC/IMMUNOLOGIC: No hives or skin allergy. PSYCH: Anxiety. NO hallucinations, or suicidal idealations. *Physical Exam - Vital Signs Last Vital Signs Temp Pulse Resp BP Pulse Ox 98.3 F 81 18 121/73 98 12/09/19 20:49 12/09/19:49 12/09/19 20:49 12/09/19 20:49 12/09/19 20:49 - Physical Exam 12/10/19 05:42 GENERAL: Awake, alert, and fully oriented, in no acute distress HEAD: No signs of trauma, normocephalic, atraumatic EYES: PERRL, EOMI, sclera anicteric, conjunctiva clear ENT: Auricles normal inspection, hearing grossly normal, nares patent, oropharynx clear without exudates. Moist mucosa NECK: Normal ROM, supple, no lymphadenopathy, JVD, or masses LUNGS: No distress, speaks full sentences, clear to auscultation bilaterally HEART: Regular rate and rhythm, normal S1 and S2, no murmurs, rubs or gallops, peripheral pulses normal and equal bilaterally. ABDOMEN: Soft, nontender, normoactive bowel sounds. No guarding, no rebound. No masses EXTREMITIES : Normal inspection, Normal range of motion, no edema. No clubbing or cyanosis. NEUROLOGICAL: Cranial nerves II through XII grossly intact. Normal speech, normal gait, no focal sensorimotor deficits SKIN: Warm, Dry, normal turgor, no rashes or lesions noted Heart Score/ECG Review - ECG Impressions Comment:: 12/09/19 22:33 Normal sinus rhythm at 80 bpmh Normal PA interval QRS. Prolonged QTc 542 Normal axis No signs of ischemia or ST elevation ED Treatment Course - LABORATORY CBC & Chemistry Diagram: 12/09/19 21:50 12/09/19 21:50 Medical Decision Making - Medical Decision Making 12/09/19 21:37 49 yo female with pmh anxiety, hypothyroidism, and asthma, gastric bypass presents to ED for anxiety attack. Will get basic labs and ekg due to prior low K also SOB. 12/09/19 22:32 Pt had prolonged QT on EKG 542 with low K will give 40 meQ KCl 12/09/19 22:37 Pt glucose was also low so gave pt some oral glucose. Pt labs are within her baseline. Pt was able to eat a few yakov crackers. Pt was feeling okay and back to baseline. Pt will follow up with therapist scheduled appointment for 12/17. Told to make appointment earlier if increase in anxiety. Discharge - Discharge Information Problems reviewed: Yes Clinical Impression/Diagnosis: Anxiety, Hypokalemia Condition: Good Disposition: HOME - Follow up/Referral Referrals: Jenifer Zepeda MD [Primary Care Provider] - - Patient Discharge Instructions Patient Printed Discharge Instructions: DI for Anxiety -- Adult, DI for [place] lemia Additional Instructions: You came into the ED for anxiety attack. This is most likely due to you anxiety disorder. At the ED we did basic labs and an EKG. The EKG did show you have a prolonged QTc (542) which you should follow up with your PCP. You also had low Potassium 3.3 so we decided to give you Potassium as well. You also had somewhat low glucose so we decided to give you some food. Please follow up with your psychiatrist within the next week. Please also follow up with your PCP for the findings found above within the next few days. Please come back for any of the following: - any suicidal thoughts or idealations - any hallucinatins - Any chest pain or shortness of breath or loss of consciousness - any palpitations For any emergent symptoms please call for medical help right away - Post Discharge Activity Work/Back to School Note: My Personal Safety Plan
[2019-12-09] MEDS ORDERED: ALBUTEROL SO4 HFA INHALER IH ONE ×2 (21:37→21:46)
[2019-12-09 22:12] LABS: BASO % 1.1 % (0-2.0); EOS % 0.1 % (0-4.5); HEMATOCRIT 37.9 % (32.4-45.2); HEMOGLOBIN 12.9 GM/dL (10.7-15.3); LYMPH % 20.1 % (8-40); MCH 34.5 pg (25.7-33.7); MCHC 33.9 g/dl (32.0-36.0); MEAN CELL VOLUME 101.7 fl (80-96); MEAN PLT VOLUME 7.8 fl (7.5-11.1); MONO % 11.6 % (3.8-10.2); NEUT % 67.1 % (42.8-82.8); PLATELET COUNT 208 K/MM3 (134-434); RBC 3.72 M/mm3 (3.60-5.2); WHITE BLOOD COUNT 7.8 K/mm3 (4.0-10.0)
[2019-12-09 22:27] LABS: POTASSIUM 3.3 mmol/L (3.5-5.1)
[2019-12-09 22:28] LABS: CALCIUM 8.3 mg/dL (8.5-10.1)
[2019-12-09 22:29] LABS: ALBUMIN 2.8 g/dl (3.4-5.0); BLOOD UREA NITROGEN 5.6 mg/dL (7-18)
[2019-12-09] MEDS ORDERED: POTASSIUM CHLORIDE TABS 20 MEQ TABLET.ER (FP) PO ONE ×2 (22:31→22:35)
[2019-12-09 22:32] LABS: CREATININE 0.5 mg/dL (0.55-1.3)
[2019-12-09 22:34] LABS: BILIRUBIN,TOTAL 0.8 mg/dL (0.2-1); TOT PROT 6.8 g/dl (6.4-8.2)
[2019-12-09] MEDS ORDERED: LORazepam 2 MG TABLET PO ONE (22:43)
[2019-12-09] MEDS ORDERED: LORazepam 1 MG TABLET ONE (22:46)
--- NOTE | 2019-12-10 14:43 | EKG ---
Test Reason : Blood Pressure : / mmHG Vent. Rate : 083 BPM Atrial Rate : 083 BPM P-R Int : 162 ms QRS Dur : 094 ms QT Int : 462 ms P-R-T Axes : 050 030 061 degrees QTc Int : 542 ms NORMAL SINUS RHYTHM PROLONGED QT ABNORMAL ECG WHEN COMPARED WITH ECG OF 19-OCT-2019 23:47, PREMATURE ATRIAL COMPLEXES ARE NO LONGER PRESENT CRITERIA FOR SEPTAL INFARCT ARE NO LONGER PRESENT Confirmed by MD THIEN, RONNA ([id number]) on 12/10/2019 2:43:29 PM Referred By: Confirmed By:RONNA NEUMANN MD
== END 2019-12-09 23:14 | disposition home or self-care (01) ==
LOC: JER 20:40
PROC: 3E0F7GC Introduction of Other Therapeutic Substance into Respiratory Tract, Via Natural or Artificial Opening (ICD-10-PCS; principal; 2019-12-09)
DX: F41.9 Anxiety disorder, unspecified (principal); E87.6 Hypokalemia
CPT/HCPCS: 36415; 80053; 83735; 84703; 85025; 93005; 93010; 99285-25